=== PATIENT | male | born 1965 | race Caucasian/White ===

== ENCOUNTER 2019-01-20 16:11 | Inpatient (IN) | payer MEDICAID ==
[~2019-01-20] VITALS: Ht 165.1 cm; Wt 69.9 kg
[2019-01-20 16:14] VITALS: Ht 165.1 cm; Wt 69.9 kg
--- NOTE | 2019-01-20 16:20 | ERD ---
ER Documentation Chief Complaint Chief Complaint Altered mental status HPI 53-year-old male with unknown past medical history presents to the ED via rescue ambulance for evaluation of altered mental status. 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 Although falls possible patient was not seen working aboveground in the trees prior to being found. No reports of pesticide use. On arrival paramedics found the patient to be agitated, u ncooperative tachycardic and dyspneic. Blood sugar was greater than 100 mg/dL. No other history is available at this time. ROS All systems reviewed and are negative except as per history of present illness. Medications Home Meds Active Scripts Aspirin (Aspirin) 81 Mg Chew, 81 MG PO DAILY, #60 TAB Prov:MAJO LOPEZ 01/27/19 Metoprolol Tartrate* (Lopressor*) 25 Mg Tab, 50 MG PO BID, #60 TAB Prov:MAJO LOPEZ 01/27/19 Atorvastatin* (Atorvastatin*) 40 Mg Tablet, 40 MG PO HS, #60 TAB Prov:MAJO LOPEZ 01/27/19 Clopidogrel Bisulfate (Clopidogrel) 75 Mg Tablet, 75 MG PO DAILY, #60 TAB Prov:MAJO LOPEZ 01/27/19 Reported Medications [diclofenaco] No Conflict Check 01/21/19 [bromuro] No Conflict Check 01/21/19 [biojara] No Conflict Check 01/21/19 [nediclon] No Conflict Check 01/21/19 [paracetamol] No Conflict Check 01/21/19 [dolprofen] No Conflict Check 01/21/19 [derman] No Conflict Check 01/21/19 [treda] No Conflict Check 01/21/19 [miconazol] No Conflict Check 01/21/19 [assal] No Conflict Check 01/21/19 [loratadina] No Conflict Check 01/21/19 [ciprofloxacino] No Conflict Check 01/21/19 [glibenclamida] No Conflict Check 01/21/19 [enalapril] No Conflict Check 01/21/19 [omeprazol] No Conflict Check 01/21/19 [metformina] No Conflict Check 01/21/19 Allergies Allergies: Coded Allergies: No Known Allergy (Unverified , 01/25/19) PMhx/Soc Unknown. Unobtainable due to the patient's cognitive impairment. Smoking Status: Unknown if ever smoked FmHx Unknown. Unobtainable due to the patient's cognitive impairment Physical Exam Vitals Temp: 97.5. Pulse: 138. Respirations: 40. Blood pressure: 161/104. O2 saturation 98%. Physical Exam Const: No acute distress Head: Atraumatic Eyes: Normal Conjunctiva ENT: Normal External Ears, Nose and Mouth. Neck: Full range of motion. No meningismus. Resp: Clear to auscultation bilaterally Cardio: Regular rate and rhythm, no murmurs Abd: Soft, non tender, non distended. Normal bowel sounds Skin: No petechiae or rashes Back: No midline or flank tenderness Ext: No cyanosis, or edema Neur: Awake and alert Psych: Normal Mood and Affect Result Diagram: 01/27/1952301/27/19523 Results 24 hrs Laboratory Tests Test 01/20/19 16:17 01/20/19 16:19 01/20/19 16:38 01/20/19 16:56 Bedside Glucose 284 mg/dL White Blood 13.0 10^3/ul Count Red Blood Count 4.82 10^6/ul Hemoglobin 13.9 g/dl Hematocrit 40.8 % Mean Corpuscular 84.6 fl Volume Mean Corpuscular 28.8 pg Hemoglobin Mean Corpuscular 34.1 g/dl Hemoglobin Jewels nt Red Cell 12.7 % Distribution Width Platelet Count 322 10^3/UL Mean Platelet 11.5 fl Volume Immature 0.500 % Granulocytes % Neutrophils % 48.1 % Lymphocytes % 40.9 % Monocytes % 7.7 % Eosinophils % 2.3 % Basophils % 0.5 % Nucleated Red 0.0 /100WBC Blood Cells % Immature 0.060 10^3/ul Granulocytes # Neutrophils # 6.3 10^3/ul Lymphocytes # 5.3 10^3/ul Monocytes # 1.0 10^3/ul Eosinophils # 0.3 10^3/ul Basophils # 0.1 10^3/ul Nucleated Red 0.0 10^3/ul Blood Cells # Prothrombin Time 13.5 Sec Prothrombin Time 1.1 Ratio INR 1.02 International Normalized Ratio Activated 28.3 Sec Partial Thrombop last Time Sodium Level 143 mmol/L Potassium Level 3.6 mmol/L Chloride Level 106 mmol/L Carbon Dioxide 19 mmol/L Level Anion Gap 18 Blood Urea 26 mg/dl Nitrogen Creatinine 1.76 mg/dl Est Glomerular 41 mL/min Filtrat Rate mL/min Glucose Level 246 mg/dl Calcium Level 8.9 mg/dl Total Bilirubin 0.5 mg/dl Direct Bilirubin 0.00 mg/dl Indirect 0.5 mg/dl Bilirubin Aspartate Amino 181 IU/L Transf (AST/SGOT ) Alanine 127 IU/L Aminotransferase (ALT/SGPT) Alkaline 84 IU/L Phosphatase Troponin I < 0.012 ng/ml Total Protein 7.4 g/dl Albumin 4.5 g/dl Globulin 2.90 g/dl Albumin/Globulin 1.55 Ratio Free Thyroxine 2.41 ug/ml Index Thyroxine (T4) 6.6 ug/dl Triiodothyronine 36.5 % (T3) Uptake Ethyl Alcohol < 10.0 mg/dl Level POC Venous 3.4 mmol/L Lactate Urine Color YELLOW Urine Clarity SLIGHTLY CLOUDY Urine pH 5.0 Urine Specific 1.015 [place] Urine Ketones TRACE mg/dL Urine Nitrite NEGATIVE mg/dL Urine Bilirubin NEGATIVE mg/dL Urine NEGATIVE mg/dL Urobilinogen Urine Leukocyte NEGATIVE Dolores/ul Esterase Urine 3 /HPF Microscopic RBC Urine 3 /HPF Microscopic WBC Urine Bacteria FEW /HPF Urine Mucus FEW /HPF Urine Hemoglobin 1+ mg/dL Urine Glucose 3+ mg/dL Urine Total 2+ mg/dl Protein Test 01/20/19 16:57 01/20/19 17:21 01/20/19 18:34 Urine Opiates Negative Screen Urine Negative Barbiturates Urine Negative Amphetamines Screen Urine Negative Benzodiazepines Screen Urine Cocaine Negative Screen Urine Negative Cannabinoids Blood Gas Blood arterial Specimen Source Arterial Blood 01/20/2019 7:45: Date Drawn 16 PM Arterial Blood 7.304 pH (Temp corrected) Arterial Blood 41.6 mmhg pCO2 (Temp correct) Arterial Blood 540.2 mmHG pO2 (Temp corrected) Arterial Blood 20.2 mmol/L HCO3 Arterial Blood -5.8 mmol/L Base Excess Arterial Blood 99.3 mmHG Oxygen Saturatio n Tadeo Test ACCEPTAB Arterial Blood Right Radial Gas Puncture Site Arterial 0.3 % Blood Carboxyhem oglobin Arterial Blood 0.3 % Methemoglobin Blood Gas A-a O2 131.2 mmHg Differential Oxyhemoglobin 98.7 % Percent Blood Gas 37.0 C Temperature Blood Gas 20.0 Respiration Rate Blood Gas Actual 20 Respiration Rate Blood Gas VENT - AC Modality FiO2 100.0 % Blood Gas Tidal 500.0 mL Volume Blood Gas Low 5.0 cmH2O PEEP Setting Blood Gas [place] Notified Whom Blood Gas 01/20/2019 7:58: Notified Time 05 PM Lactic Acid 2.4 mmol/L Level Current Medications Medications Dose Sig/Humberto Start Time Status Last (Trade) Ordered Route PRN Stop Time Admin Dose Reason Admin Thiamine 100 mg ONCE ONCE 01/20/19 DC HCl IV 16:30 (Vitamin B1) 01/20/19 16:31 Lorazepam 2 mg ONCE ONCE 01/20/19 DC 01/20/19 (Ativan) IV 16:30 16:30 01/20/19 16:31 Lorazepam 2 mg ONCE ONCE 01/20/19 DC 01/20/19 (Ativan) IV 17:00 16:43 01/20/19 17:01 Cefepime HCl 50 ml @ ONCE STAT 01/20/19 DC 01/20/19 100 mls/hr IVPB 16:42 17:25 01/20/19 17:11 Vancomycin 250 ml @ ONCE ONCE 01/20/19 DC 01/20/19 HCl 125 mls/hr IVPB 17:00 17:47 01/20/19 18:59 Sodium 2,500 ml BOLUS OVER 2 01/20/19 DC 01/20/19 Chloride HOURS STAT 17:17 17:26 (NS) IV* 01/20/19 17:21 Vecuronium 8 mg ONCE ONCE 01/20/19 DC 01/20/19 [place] IV 17:30 17:34 (Norcuron) 01/20/19 17:31 Propofol 100 ml @ 0 TITRATE 01/20/19 DC mls/hr STAT IV 18:41 01/20/19 20:29 Propofol 100 ml @ ud STK-MED 01/20/19 DC ONCE .ROUTE 18:44 01/20/19 18:45 Propofol 100 ml @ 0 TITRATE 01/20/19 DC 01/20/19 mls/hr ONCE IV 19:00 18:50 01/20/19 19:01 Procedures/MDM DOCUMENTS REVIEWED: ED nurse, EMS report EKG: Time: 17:22. Sinus tachycardia. Ventricular rate 107. Normal MI and QRS. Nonspecific ST-T wave changes but no acute ST segment elevation or depression. No ectopy. My Interpretation IMAGING: Chest AP portable: Post intubation. Tip of the ET tube is in the right mainstem bronchus. Bilateral lung nodules/granulomas but no effusions or infiltrates. No pneumothorax. No mediastinal widening. My interpretation. Chest AP portable: Post repositioning of the ET tube. The tip is still in the right mainstem bronchus. No pneumothorax. No effusions or infiltrates. My interpretation. Chest AP portable: Post second repositioning of the ET tube. Tip is above the randall. No pneumothorax. No effusions or infiltrates. My interpretation. CT brain without contrast: No extra-axial fluid collections, mass, ischemia, hydrocephalus or shift. No abnormalities of the bony calvarium. My interpretation. CT of the cervical spine. No prevertebral soft tissue swelling. The vertebral heights are well-maintained. No fracture or subluxation. DJD. Straightening of the normal lordotic curve. PROCEDURES: Endotracheal Intubation by me: Pre assessment performed. See preceding note for details. Pre-oxygenation performed with 100% oxygen RSI: Performed w/o complication or hypoxic events. Medications as ord ered. Blade: #3 ET Tube: 7.5 cm Depth: 25 cm at the lip Intubation confirmed by colorimetric CO2, equal breath sounds, quiet over the stomach. Chest X-ray 1V Interpreted by me: As above. ET tube is 1.5 cm above the randall after the second repositioning. Normal soft tissue, No pneumothorax. MEDICAL DECISION MAKIN-year-old male with unknown past medical history presents to the ED via rescue ambulance for evaluation of altered mental status. CBC significant for leukocytosis but no anemia or thrombocytopenia. Chemistry reveals an elevated BUN and creatinine with a mild anion gap metabolic acidosis. LFTs significant for transaminitis but no hyperbilirubinemia. EKG significant for sinus tachycardia but no acute ischemic changes or dysrhythmia. Troponin is not elevated. Thyroid function tests are normal. EtOH level is 0. Urine drugs of abuse are unremarkable. Urinalysis is negative for infection or hematuria. CT of the brain is negative for hemorrhage, infarct, mass or hydrocephalus. CT of the cervical spine reveals DJD but no fracture or subluxation. Chest x-ray negative for pneumonia or congestive heart failure. Multiple criteria for systemic inflammatory response syndrome including tachycardia, tachypnea and leukocytosis. Adpon-np-giys lactate is elevated at 3.4 mmol/L. Although no source of infection is immediately identifiable normal saline 30 cc/kg fluid bolus is given and broad-spectrum antibiotics after cultures. Repeat lactate was 2.4 mmol/L. Patient extremely agitated with minimal response to multiple doses of intravenous benzodiazepines; required sedation and endotracheal intubation. Patient presents with acute encephalopathy of uncertain etiology. 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 No evidence of alcohol or illicit drug ingestion. No thyroid storm as thyroid function tests are normal. Mild hyperglycemia without evidence of DKA. No evidence of structural brain lesion. Multiple other etiologies are considered including but not limited to seizure with a prolonged postictal state, encephalitis, and occult cardiac dysrhythmia. LP considered but will be deferred to the admitting team. Admit to intensive care unit for further evaluation and management. PATIENT CARE TRANSITIONED: Time: 18:48, Dr. Archibald. Departure Diagnosis: Primary Impression: Acute encephalopathy Additional Impression: Systemic inflammatory response syndrome (SIRS) Condition: Critical AMADOU HERNANDEZ MD Jan 20, 2019 16:20
[2019-01-20] MEDS ORDERED: LORAZEPAM 2 MG INJ IV ONE ×2 (16:30→17:00)
[2019-01-20] MEDS ORDERED: THIAMINE 200 MG INJ IV ONE (16:30)
[2019-01-20] MEDS ORDERED: CEFEPIME 2GM/50 ML (PMX) 50 ML IVPB STA (16:42)
[2019-01-20] MEDS ORDERED: VANCOMYCIN 1 GM (PMX) 250 ML IVPB ONE (17:00)
[2019-01-20] MEDS ORDERED: SODIUM CHLORIDE 0.9% 1L BAG IV* STA (17:17)
[2019-01-20] MEDS ORDERED: VECURONIUM 10 MG VIAL IV ONE (17:30)
[2019-01-20] MEDS ORDERED: PROPOFOL 100 ML IV STA (18:41)
[2019-01-20] MEDS ORDERED: PROPOFOL 100 ML ONE (18:44)
[2019-01-20] MEDS ORDERED: PROPOFOL 100 ML IV ONE (19:00)
[2019-01-20] MEDS ORDERED: NACL 0.9% 3 ML SYG IV SCH (19:30)
--- NOTE | 2019-01-20 19:36 | HP ---
Date/Time of Note Date/Time of Note DATE: 01/20/19 TIME: 19:19 Assessment/Plan VTE Prophylaxis SCD applied (from Nsg): Yes Pharmacological prophylaxis: heparin Lines/Catheters IV Catheter Type (from Nrsg): Saline Lock Urinary Cath still in place: Yes Reason Cath still needed: urinary retention Assessment/Plan Hospital Course 53 yo male without known PMH who was brought in by EMS for acute encephelopathy that occured at work today. He was extremely agitated on arrival and required sedation leading to intubation and mechanical ventilation. It sounds like the patient was in usual state of health prior to acute decompensation at work today. This suggests perhaps a toxidrome, however drug screen is negative. Perhpas this was seizure activity however it did not respond to ativan in the ED. We will need to observe him and obtain further collateral if possible. - Continue mechanical ventilation per pulmonary - Monitor neurologic status - Neuro consult DMII - Seems diabetic by glucose level. Basal/bolus insulin MONIQUE vs CKD - Trend creatinine Transaminitis: - Imaging, hepatitis serologies Lactic acidosis: - Fluids, empiric abx To ICU Result Diagram: 01/20/19 1619 01/20/19 1619 Results 24hrs Laboratory Tests Test 01/20/19 16:17 01/20/19 16:19 01/20/19 16:38 01/20/19 16:56 Bedside Glucose 284 H White Blood Count 13.0 H Red Blood Count 4.82 Hemoglobin 13.9 L Hematocrit 40.8 L Mean Corpuscular 84.6 Volume Mean Corpuscular 28.8 L Hemoglobin Mean Corpuscular 34.1 Hemoglobin Concen t Red Cell 12.7 Distribution Width Platelet Count 322 Mean Platelet 11.5 H Volume Immature 0.500 H Granulocytes % Neutrophils % 48.1 Lymphocytes % 40.9 Monocytes % 7.7 Eosinophils % 2.3 Basophils % 0.5 Nucleated Red 0.0 Blood Cells % Immature 0.060 H Granulocytes # Neutrophils # 6.3 Lymphocytes # 5.3 H Monocytes # 1.0 H Eosinophils # 0.3 Basophils # 0.1 Nucleated Red 0.0 Blood Cells # Prothrombin Time 13.5 Prothrombin Time 1.1 Ratio INR International 1.02 Normalized Ratio Activated 28.3 Partial Thrombopl ast Time Sodium Level 143 Potassium Level 3.6 Chloride Level 106 Carbon Dioxide 19 L Level Anion Gap 18 H Blood Urea 26 H Nitrogen Creatinine 1.76 H Est Glomerular 41 L Filtrat Rate mL/min Glucose Level 246 H Calcium Level 8.9 Total Bilirubin 0.5 Direct Bilirubin 0.00 Indirect 0.5 Bilirubin Aspartate Amino 181 H Transf (AST/SGOT) Alanine 127 H Aminotransferase (ALT/SGPT) Alkaline 84 Phosphatase Troponin I < 0.012 Total Protein 7.4 Albumin 4.5 Globulin 2.90 Albumin/Globulin 1.55 Ratio Free Thyroxine 2.41 Index Thyroxine (T4) 6.6 Triiodothyronine 36.5 (T3) Uptake Ethyl Alcohol < 10.0 H Level POC Venous 3.4 *H Lactate Urine Color YELLOW Urine Clarity SLIGHTLY CLOUDY A Urine pH 5.0 Urine Specific 1.015 [place] Urine Ketones TRACE A Urine Nitrite NEGATIVE Urine Bilirubin NEGATIVE Urine NEGATIVE Urobilinogen Urine Leukocyte NEGATIVE Esterase Urine Microscopic 3 RBC Urine Microscopic 3 WBC Urine Bacteria FEW A Urine Mucus FEW A Urine Hemoglobin 1+ H Urine Glucose 3+ H Urine Total 2+ H Protein Test 01/20/19 16:57 01/20/19 18:34 Urine Opiates Negative Screen Urine Negative Barbiturates Urine Negative Amphetamines Screen Urine Negative Benzodiazepines Screen Urine Cocaine Negative Screen Urine Negative Cannabinoids Lactic Acid Level 2.4 *H HPI/ROS Admit Date/Time Admit Date/Time Hx of Present Illness 53 yo male with unknown medical history presents with acute encephelopathy Patient has been unable to provide a history. 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 Went to work today normally. Apparently then developed acute respiratory and mental decline. EMS reports he was encephelopathic, wildly waving arms. Also having difficulty breathing. Brought to ED where found to be extremely agitated. He required massive benzos to calm him down in order to get head imaging. He then required intubation but did not have problems with gas exchange Currently intubated on mechanical ventilation ROS Constitutional: no complaints, improved Eyes: no complaints ENT: no complaints Respiratory: no complaints Cardiovascular: no complaints Gastrointestinal: no complaints Genitourinary: no complaints Musculoskeletal: no complaints Skin: no complaints Neurologic: no complaints Endocrine: no complaints Lymphatic: no complaints Psychological: no complaints, nl mood/affect Immunologic: no complaints PMH/Family/Social Past Medical History Medical History: no pertinent history Coded Allergies: Unknown: Unable to obtain (Unverified , 01/20/19) Past Surgical History Past Surgical Hx: no surgical history Family History Significant Family History: no pertinent family hx Social History Alcohol Use: none Smoking Status: Never smoker Drug Use: cocaine Exam/Review of Systems Vital Signs Vitals Vital Signs Date Temp Pulse Resp B/P (MAP) Pulse Ox O2 O2 Flow FiO2 Time Delivery Rate 01/20/19 113 20 100 100 18:02 01/20/19 Simple 16:20 Mask 01/20/19 97.5 161/104 16:14 (123) Exam Exam Intubated, sedated Appears well kept No signs of trauma RRR CTAB anteriorly ETT Abdomen obese, soft nt Ext warm without edema TAMAR MCCLELLAN MD Jan 20, 2019 19:36
[2019-01-20] MEDS ORDERED: VANCOMYCIN 500 MG (PMX) 100 ML IVPB ONE (20:00)
[2019-01-20] MEDS ORDERED: VANCOMYCIN IV PER PHARMACY XX SCH (20:00)
[2019-01-20] MEDS: SOD CHLORIDE 0.9% 1,000 ML IV SCH (20:08)
[2019-01-20] MEDS ORDERED: THIAMINE 100 MG in SOD CHLORIDE 0.9% 100 ML IV SCH (20:30)
[2019-01-20] MEDS ORDERED: INSULIN ASPART [NOVOLOG] 3 ML PEN SC SCH (21:00)
[2019-01-20 21:22] VITALS: BP 132/85; PULSE 84; RESP 18
[2019-01-20 21:40] VITALS: RESP 20
[2019-01-20 22:00] VITALS: BP 119/77; PULSE 78; RESP 20
[2019-01-20] MEDS: PIPER-TAZO 3.375 GM IV (PMX) 100 ML IVPB SCH (22:06)
[2019-01-20 23:00] VITALS: BP 116/94; PULSE 85; RESP 13
[2019-01-20 23:20] VITALS: RESP 20
[2019-01-20] MEDS: INSULIN GLARGINE [LANTus] (100 UNITS/ML) SYG SC SCH (23:48)
[2019-01-21] VITALS (58 sets, daily range): BP systolic 95–127; BP diastolic 61–81; PULSE 57–77; RESP 15–38
[2019-01-21] MEDS: PROPOFOL 100 ML IV PRN ×4 (00:40→20:52)
[2019-01-21] MEDS: INSULIN ASPART [NOVOLOG] 3 ML PEN SC SCH ×6 (01:00→20:12)
[2019-01-21] MEDS: ACCU-CHEK XX SCH (01:09)
[2019-01-21] MEDS: PIPER-TAZO 3.375 GM IV (PMX) 100 ML IVPB SCH ×3 (05:06→22:05)
[2019-01-21] MEDS ORDERED: HEPARIN 1000 UNITS/ML 10 ML INJ IV PRN (08:00)
[2019-01-21] MEDS ORDERED: HEPARIN 1000 UNITS/ML 10 ML INJ IV ONE (08:00)
[2019-01-21] MEDS: HEPARIN 25000 UNITS/250 ML 250 ML IV SCH (08:18)
[2019-01-21] MEDS: SOD CHLORIDE 0.9% 1,000 ML IV SCH ×2 (08:23→20:17)
[2019-01-21] MEDS: FENTAnyl (DRIP) 1000 mcg/100mL 100 ML IV SCH (09:23)
[2019-01-21] MEDS ORDERED: ASPIRIN 325 MG TAB PO ONE (10:00)
--- NOTE | 2019-01-21 10:35 | CONSI ---
Assessment/Plan Assessment/Plan Assessment/Plan (Recall) 53 yo M c/ uncertain PHx, presents for evaluation of ams and agitation. He is now s/p intubation for mechanical ventilation, and on high dose chemical sedation...which limits his neurologic evaluation... He is noted to have a NV, which raises concern for a concomitant acute embolic TRANSITION LEAD process... CT Head was, though, unremarkable. The clinical presentation is not classic for encephalitis.. UDS was negative P: MRI brain when medically able Add HIV OK to defer CSF evaluation for now Wean sedation as soon as medically able Continued medical management and supportive care per primary Will follow Consultation Date/Type/Reason Admit Date/Time Type of Consult Neurology Reason for Consultation ams Requesting Provider: TAMAR MCCLELLAN MD Date/Time of Note DATE: 01/21/19 TIME: 10:22 Hx of Present Illness The patient is currently unable to contribute a Hx. It is elsewhere noted: 53 yo male with unknown medical history presents with acute encephelopathy Patient has been unable to provide a history. 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 Went to work today normally. Apparently then developed acute respiratory and mental decline. EMS reports he was encephelopathic, wildly waving arms. Also having difficulty breathing. Brought to ED where found to be extremely agitated. He required massive benzos to calm him down in order to get head imaging. He then required intubation but did not have problems with gas exchange Currently intubated on mechanical ventilation limited by critical illness Objective Exam Vitals Vital Signs Date Temp Pulse Resp B/P (MAP) Pulse Ox O2 O2 Flow FiO2 Time Delivery Rate 01/21/19 98.5 75 20 112/74 99 Mechanical 08:00 (87) Ventilator 01/21/19 40 05:15 01/20/19 18:30 Intake and Output 01/20/19 01/20/19 01/21/19 1515:00 23:00 07:00 IntakeIntake Total 584.6 ml 952.78 ml OutputOutput Total 950 ml 898 ml BalanceBalance -365.4 ml 54.78 ml Exam PE: Gen Appearance: No Apparent Distress HEENT: Intubated Cardiovascular: Regular rate Abdomen: Soft Extremities: Dry NE: The patient was comatose, while on chemical sedation. Cranial nerve examination was limited by mental status. Pupils were equal and reactive to light. There was no afferent pupillary defect. Funduscopic examination was limited. Face was grossly symmetric, w/ present corneal and cough reflexes. Tone was normal. Muscle bulk was normal. I did not see fasciculations. The patient withdrew to noxious stimulation x 4. Coordination and gait testing was limited by mental status. Arm and leg reflexes were within normal limits and symmetric. Belcher's sign was absent. Plantar responses were flexor. Results Result Diagram: 01/21/19 0820 01/21/19 0502 Results 24hrs Laboratory Tests Test 01/20/19 16:17 01/20/19 16:19 01/20/19 16:38 01/20/19 16:56 Bedside Glucose 284 H White Blood 13.0 H Count Red Blood Count 4.82 Hemoglobin 13.9 L Hematocrit 40.8 L Mean Corpuscular 84.6 Volume Mean Corpuscular 28.8 L Hemoglobin Mean Corpuscular 34.1 Hemoglobin Jewels nt Red Cell 12.7 Distribution Width Platelet Count 322 Mean Platelet 11.5 H Volume Immature 0.500 H Granulocytes % Neutrophils % 48.1 Lymphocytes % 40.9 Monocytes % 7.7 Eosinophils % 2.3 Basophils % 0.5 Nucleated Red 0.0 Blood Cells % Immature 0.060 H Granulocytes # Neutrophils # 6.3 Lymphocytes # 5.3 H Monocytes # 1.0 H Eosinophils # 0.3 Basophils # 0.1 Nucleated Red 0.0 Blood Cells # Prothrombin Time 13.5 Prothrombin Time 1.1 Ratio INR 1.02 International Normalized Ratio Activated 28.3 Partial Thrombop last Time Sodium Level 143 Potassium Level 3.6 Chloride Level 106 Carbon Dioxide 19 L Level Anion Gap 18 H Blood Urea 26 H Nitrogen Creatinine 1.76 H Est Glomerular 41 L Filtrat Rate mL/min Glucose Level 246 H Calcium Level 8.9 Total Bilirubin 0.5 Direct Bilirubin 0.00 Indirect 0.5 Bilirubin Aspartate Amino 181 H Transf (AST/SGOT ) Alanine 127 H Aminotransferase (ALT/SGPT) Alkaline 84 Phosphatase Troponin I < 0.012 Total Protein 7.4 Albumin 4.5 Globulin 2.90 Albumin/Globulin 1.55 Ratio Free Thyroxine 2.41 Index Thyroxine (T4) 6.6 Triiodothyronine 36.5 (T3) Uptake Ethyl Alcohol < 10.0 H Level POC Venous 3.4 *H Lactate Urine Color YELLOW Urine Clarity SLIGHTLY CLOUDY A Urine pH 5.0 Urine Specific 1.015 [place] Urine Ketones TRACE A Urine Nitrite NEGATIVE Urine Bilirubin NEGATIVE Urine NEGATIVE Urobilinogen Urine Leukocyte NEGATIVE Esterase Urine 3 Microscopic RBC Urine 3 Microscopic WBC Urine Bacteria FEW A Urine Mucus FEW A Urine Hemoglobin 1+ H Urine Glucose 3+ H Urine Total 2+ H Protein Test 01/20/19 16:57 01/20/19 17:21 01/20/19 18:34 01/20/19 20:30 Urine Opiates Negative Screen Urine Negative Barbiturates Urine Negative Amphetamines Screen Urine Negative Benzodiazepines Screen Urine Cocaine Negative Screen Urine Negative Cannabinoids Blood Gas Blood arterial Specimen Source Arterial Blood 01/20/2019 7:45: Date Drawn 16 PM Arterial Blood 7.304 L pH (Temp corrected) Arterial Blood 41.6 pCO2 (Temp correct) Arterial Blood 540.2 H pO2 (Temp corrected) Arterial Blood 20.2 L HCO3 Arterial Blood -5.8 L Base Excess Arterial Blood 99.3 H Oxygen Saturatio n Tadeo Test ACCEPTAB Arterial Blood Right Radial Gas Puncture Site Arterial 0.3 Blood Carboxyhem oglobin Arterial Blood 0.3 Methemoglobin Blood Gas A-a O2 131.2 H Differential Oxyhemoglobin 98.7 Percent Blood Gas 37.0 Temperature Blood Gas 20.0 Respiration Rate Blood Gas Actual 20 Respiration Rate Blood Gas VENT - AC Modality FiO2 100.0 Blood Gas Tidal 500.0 Volume Blood Gas Low 5.0 PEEP Setting Blood Gas HI Notified Whom Blood Gas 01/20/2019 7:58: Notified Time 05 PM Lactic Acid 2.4 *H 2.2 *H Level Test 01/20/19 21:40 01/20/19 23:45 01/21/19 01:08 01/21/19 05:02 Bedside Glucose 205 149 112 White Blood 11.0 H Count Red Blood Count 4.02 L Hemoglobin 11.7 L Hematocrit 34.9 L Mean Corpuscular 86.8 Volume Mean Corpuscular 29.1 Hemoglobin Mean Corpuscular 33.5 Hemoglobin Jewels nt Red Cell 12.7 Distribution Width Platelet Count 228 # Mean Platelet 11.5 H Volume Immature 0.400 Granulocytes % Neutrophils % 76.4 Lymphocytes % 13.0 L Monocytes % 9.1 Eosinophils % 0.8 Basophils % 0.3 Nucleated Red 0.0 Blood Cells % Immature 0.040 H Granulocytes # Neutrophils # 8.4 H Lymphocytes # 1.4 Monocytes # 1.0 H Eosinophils # 0.1 Basophils # 0.0 Nucleated Red 0.0 Blood Cells # Sodium Level 141 Potassium Level 4.4 Chloride Level 111 H Carbon Dioxide 23 Level Anion Gap 7 # Blood Urea 18 Nitrogen Creatinine 0.73 # Est Glomerular > 60 Filtrat Rate mL/min Glucose Level 75 # Hemoglobin A1c 6.0 H Calcium Level 7.9 L Total Bilirubin 0.7 Direct Bilirubin 0.00 Indirect 0.7 Bilirubin Aspartate Amino 128 H Transf (AST/SGOT ) Alanine 98 H Aminotransferase (ALT/SGPT) Alkaline 54 Phosphatase Total Protein 5.9 L Albumin 3.3 Globulin 2.60 Albumin/Globulin 1.26 Ratio Test 01/21/19 05:05 01/21/19 06:00 01/21/19 06:30 01/21/19 08:20 Bedside Glucose 81 Blood Gas Blood arterial Specimen Source Arterial Blood 01/21/2019 5:55: Date Drawn 16 AM Arterial Blood 7.442 pH (Temp corrected) Arterial Blood 32.7 L pCO2 (Temp correct) Arterial Blood 139.1 H pO2 (Temp corrected) Arterial Blood 21.8 L HCO3 Arterial Blood -1.6 Base Excess Arterial Blood 98.3 H Oxygen Saturatio n Tadeo Test ACCEPTAB Arterial Blood Right Radial Gas Puncture Site Arterial 0.3 Blood Carboxyhem oglobin Arterial Blood 0.2 Methemoglobin Blood Gas A-a O2 108.5 H Differential Oxyhemoglobin 97.8 Percent Blood Gas 37.0 Temperature Blood Gas 20.0 Respiration Rate Blood Gas Actual 20 Respiration Rate Blood Gas VENT - AC Modality FiO2 40.0 Blood Gas Tidal 500.0 Volume Blood Gas Mean 10 Airway Pressure Blood Gas Low 5.0 PEEP Setting Blood Gas 26.0 Inspiratory Pressure Blood Gas NATALIA BAXTER Notified Whom Blood Gas 01/21/2019 6:05: Notified Time 56 AM Creatine Kinase 701 H Creatine Kinase 2.8 Index Creatinine 19.90 H Kinase MB (Mass) Troponin I 9.000 *H White Blood 9.9 Count Red Blood Count 3.97 L Hemoglobin 11.6 L Hematocrit 33.5 L Mean Corpuscular 84.4 Volume Mean Corpuscular 29.2 Hemoglobin Mean Corpuscular 34.6 Hemoglobin Jewels nt Red Cell 12.8 Distribution Width Platelet Count 233 Mean Platelet 11.4 H Volume Immature 0.400 Granulocytes % Neutrophils % 74.5 Lymphocytes % 15.0 Monocytes % 8.6 Eosinophils % 1.3 Basophils % 0.2 Nucleated Red 0.0 Blood Cells % Immature 0.040 H Granulocytes # Neutrophils # 7.4 Lymphocytes # 1.5 Monocytes # 0.9 Eosinophils # 0.1 Basophils # 0.0 Nucleated Red 0.0 Blood Cells # Prothrombin Time 14.4 Prothrombin Time 1.1 Ratio INR 1.11 International Normalized Ratio Activated 32.1 Partial Thrombop last Time Test 01/21/19 08:34 Bedside Glucose 81 Past Medical History Medical History: no pertinent history Home Meds Unable to Obtain Active Prescriptions or Reported Meds Medications Current Medications Sodium Chloride 1,000 ml @ 80 mls/hr [id number] IV Last administered on 01/21/19at 08:23; Admin Dose 80 MLS/HR; Start 01/20/19 at 19:29 IV Flush (NS 3 ml) 3 ml PER PROTOCOL IV ; Start 01/20/19 at 19:30 Diagnostic Test (Pha) (Accu-Chek) 1 02 XX ; Start 01/21/19 at 02:00 Insulin Glargine (Lantus) 12 units DAILY@2000 SC Last administered on 01/20/19at 23:48; Admin Dose 12 UNITS; Start 01/20/19 at 20:00 Vancomycin HCl (Vanco Iv Per Pharmacy) VANCOMYCIN PER PHARMACY PER PROTOCOL XX ; Start 01/20/19 at 20:00 Piperacillin Sod/ Tazobactam Sod 100 ml @ 200 mls/hr Q8 IVPB Last administered on 01/21/19at 05:06; Admin Dose 200 MLS/HR; Start 01/20/19 at 22:00 Propofol 100 ml @ 2.46 mls/hr Q12H PRN IV SEDATION Last administered on 01/21/19at 08:23; Admin Dose 19.68 MLS/HR; Start 01/20/19 at 22:00 Insulin Aspart (Novolog Insulin Pen) NOVOLOG *MODERATE* ALGORI... Q4 SC ; Start 01/21/19 at 01:00 Heparin Sodium (Porcine) (Heparin (1000 Units/ml)) 4,000 unit PER PROTOCOL PRN IV aPTT<47; Start 01/21/19 at 08:00 Heparin Sodium (Porcine) 250 ml @ 8.4 mls/hr PER PROTOCOL IV Last administered on 01/21/19at 08:18; Admin Dose 8.4 MLS/HR; Start 01/21/19 at 08:00 Fentanyl 100 ml @ 2.5 mls/hr TITRATE IV Last administered on 01/21/19at 09:23; Admin Dose 2.5 MLS/HR; Start 01/21/19 at 09:30 Aspirin (Aspirin) 81 mg DAILY PO ; Start 01/22/19 at 09:00 Allergies: Coded Allergies: Unknown: Unable to obtain (Unverified , 01/20/19) Past Surgical History Past Surgical Hx: no surgical history Social History Alcohol Use: none Smoking Status: Unknown if ever smoked Drug Use: cocaine BENNY HALL Jan 21, 2019 10:34
[2019-01-21] MEDS ORDERED: [UNRECOGNIZED DRUG - OTHER] (10:47)
[2019-01-21] MEDS ORDERED: LORATADINE (10:47)
[2019-01-21] MEDS ORDERED: enalapril (10:47)
[2019-01-21] MEDS ORDERED: [UNRECOGNIZED DRUG - OTHER] (10:47)
[2019-01-21] MEDS ORDERED: MICONAZOLE (10:47)
[2019-01-21] MEDS ORDERED: OMEPRAZOL (10:47)
[2019-01-21] MEDS ORDERED: [UNRECOGNIZED DRUG - OTHER] (10:47)
[2019-01-21] MEDS ORDERED: METFORMINA (10:47)
[2019-01-21] MEDS ORDERED: [UNRECOGNIZED DRUG - OTHER] (10:47)
[2019-01-21] MEDS ORDERED: [UNRECOGNIZED DRUG - OTHER] (10:47)
[2019-01-21] MEDS ORDERED: [UNRECOGNIZED DRUG - OTHER] (10:47)
[2019-01-21] MEDS ORDERED: [UNRECOGNIZED DRUG - OTHER] (10:47)
[2019-01-21] MEDS ORDERED: CIPROFLOXACIN (10:47)
[2019-01-21] MEDS ORDERED: [UNRECOGNIZED DRUG - OTHER] (10:47)
[2019-01-21] MEDS ORDERED: paracetamol (10:47)
[2019-01-21] MEDS ORDERED: glibenclamida (10:47)
--- NOTE | 2019-01-21 11:51 | RADRPT ---
Echocardiogram Report Patient Name: WHITNEY MAYBERRYPatient ID: [id number] : 1965 (54y )Study Date: 01/21/2019 9:54:12 AM Gender: MAccession #: [id number] Tech: Fawad Page [facility] Location: [address] Ref.Physician: TAMAR MCCLELLAN Height(Cm): BSA: Weight(Kg): Quality: AdequateOrder Physician: TAMAR MCCLELLAN Account #: Procedures: Echocardiographic Report: Transthoracic echocardiogram with complete 2D, M-Mode, and doppler examination. Indications: NSTEMI. Measurements: 2D/M Mode Doppler Measurement Value Normal Range Measurement Value Normal Range LVIDd 2D 4.5 [ 4.2 - 5.8 ] cm AV Peak [place] 1.2 [ 100.0 - 170.0 ] cm/sec LVIDs 2D 3.2 [ 2.5 - 4.0 ] cm AV Peak PG 6.0 [ 2.0 - 9.0 ] mmHg LVPWd 2D 0.9 [ 0.6 - 1.0 ] cm LVOT Peak [place] 1.0 [ 70.0 - 110.0 ] cm/sec IVSd 2D 1.1 [ 0.6 - 1.0 ] cm LVOT Peak PG 4.0 [ 2.0 - 6.0 ] mmHg AoR Diam 2D 3.2 [ 2.6 - 3.4 ] cm MV E Peak [place] 0.8 [ 60.0 - 130.0 ] cm/sec EDV 2D 92.9 [ 62.0 - 150.0 ] ml MV A Peak [place] 1.0 [ 100.0 - 120.0 ] cm/sec ESV 2D 41.0 [ 21.0 - 61.0 ] ml MV E/A 0.8 [ 0.8 - 1.5 ] ratio EF 2D 55.9 [ 52.0 - 72.0 ] percent MV Decel Time 208 [ 104 - 258 ] msec LA Dimen 2D 3.1 [ 3.0 - 4.0 ] cm Lat E` [place] 0.1 [ 10.0 - 15.0 ] cm/sec Lateral E/E` 9.5 [ 1.0 - 2.0 ] ratio Med E` [place] 0.1 cm/sec MV E/A 0.8 [ 0.8 - 1.5 ] ratio TR Peak [place] 2.1 [ 100.0 - 280.0 ] cm/sec TR Peak PG 17.0 mmHg RVSP 25.0 [ 10.0 - 36.0 ] mmHg Findings: Left Ventricle: Lower limits of normal systolic function. Normal left ventricular cavity size. Normal left ventricular wall thickness. Ejection fraction is visually estimated at 50 %. Tissue Doppler/Mitral Doppler indices are consistent with impaired relaxation (Stage I diastolic dysfunction). Akinesis of the basal to mid inferior wall vs poor endocadial visualization. Right Ventricle: Normal right ventricular size. Normal right ventricular systolic function. Left Atrium: The left atrium is normal in size. Right Atrium: The right atrium is normal in size. Mitral Valve: Mild mitral annular calcification. Trace mitral regurgitation. Aortic Valve: Normal appearance of the aortic valve. No significant aortic stenosis or insufficiency. Tricuspid Valve: Normal appearance of the tricuspid valve. The estimated Peak RVSP is 25 mmHg. There is trace tricuspid regurgitation. Pericardium: Normal pericardium with no significant pericardial effusion. Aorta: Normal aortic root. IVC: Inferior vena cava without respiratory collapse, however, patient on ventilator. Conclusions: Lower limits of normal systolic function. Normal left ventricular cavity size. Normal left ventricular wall thickness. Ejection fraction is visually estimated at 50 %. Tissue Doppler/Mitral Doppler indices are consistent with impaired relaxation (Stage I diastolic dysfunction). Akinesis of the basal to mid inferior wall vs poor endocadial visualization. No significant valvular stenosis or regurgitation seen. The estimated Peak RVSP is 25 mmHg. Inferior vena cava without respiratory collapse, however, patient on ventilator. Electronically Signed By: Lenny Giordano 2019-01-21 11:50:27 PDT
--- NOTE | 2019-01-21 12:57 | CONS ---
Assessment/Plan Assessment/Plan Hospital Course (Demo Recall) NSTEMI: So far trop increased to 11. EKG completely normal and no q waves. Echo with EF 50% and basal inferior wall abnormality vs artifact. I do not think this represents true ACS and may still just be Type II IA due to yet unclear link to his presenting delirium. If he had pesticide toxicity/anticholinergic he could have had coronary vasospasm as well. 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 CT head normal and seen by neuro Acute respiratory failure: intubated on admission for airway protection Acute renal failure: now resolved after IVF Transaminitis: mild and improving -repeat head CT now that pt is on heparin -continue heparin if CT is ok -trend trops -continue ASA -start lipitor if LFTs remain stable -start metoprolol 25mg BID Consultation Date/Type/Reason Admit Date/Time Date of Consultation: Jan 21, 2019 Type of Consult Cardiology Reason for Consultation NSTEMI Requesting Provider: TAMAR MCCLELLAN MD Date/Time of Note DATE: 01/21/19 TIME: 12:42 Hx of Present Illness 53 yo M with no known medical history 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 He was attempted to be sedated and eventually was intubated. Initially he was tachycardic and hypertensive. He was found to have renal failure and transaminitis. CT head was unremarkable. Serial trops revealed trops up to 11 so far. EKG has been normal. He remains hemodynamically stable and sedated on the vent. unable to obtain Past Medical History none known Home Meds Reported Medications [diclofenaco] No Conflict Check 01/21/19 [bromuro] No Conflict Check 01/21/19 [biojara] No Conflict Check 01/21/19 [nediclon] No Conflict Check 01/21/19 [paracetamol] No Conflict Check 01/21/19 [dolprofen] No Conflict Check 01/21/19 [derman] No Conflict Check 01/21/19 [treda] No Conflict Check 01/21/19 [miconazol] No Conflict Check 01/21/19 [assal] No Conflict Check 01/21/19 [loratadina] No Conflict Check 01/21/19 [ciprofloxacino] No Conflict Check 01/21/19 [glibenclamida] No Conflict Check 01/21/19 [enalapril] No Conflict Check 01/21/19 [omeprazol] No Conflict Check 01/21/19 [metformina] No Conflict Check 01/21/19 Medications Current Medications Sodium Chloride 1,000 ml @ 80 mls/hr [id number] IV Last administered on 01/21/19 08:23; Admin Dose 80 MLS/HR; Start 01/20/19 at 19:29 IV Flush (NS 3 ml) 3 ml PER PROTOCOL IV ; Start 01/20/19 at 19:30 Diagnostic Test (Pha) (Accu-Chek) 1 02 XX ; Start 01/21/19 at 02:00 Insulin Glargine (Lantus) 12 units DAILY@2000 SC Last administered on 01/20/19at 23:48; Admin Dose 12 UNITS; Start 01/20/19 at 20:00 Vancomycin HCl (Vanco Iv Per Pharmacy) VANCOMYCIN PER PHARMACY PER PROTOCOL XX ; Start 01/20/19 at 20:00 Piperacillin Sod/ Tazobactam Sod 100 ml @ 200 mls/hr Q8 IVPB Last administered on 01/21/19at 05:06; Admin Dose 200 MLS/HR; Start 01/20/19 at 22:00 Propofol 100 ml @ 2.46 mls/hr Q12H PRN IV SEDATION Last administered on 01/21/19 08:23; Admin Dose 19.68 MLS/HR; Start 01/20/19 at 22:00 Insulin Aspart (Novolog Insulin Pen) NOVOLOG *MODERATE* ALGORI... Q4 SC ; Start 01/21/19 at 01:00 Heparin Sodium (Porcine) (Heparin (1000 Units/ml)) 4,000 unit PER PROTOCOL PRN IV aPTT<47; Start 01/21/19 at 08:00 Heparin Sodium (Porcine) 250 ml @ 8.4 mls/hr PER PROTOCOL IV Last administered on 01/21/19at 08:18; Admin Dose 8.4 MLS/HR; Start 01/21/19 at 08:00 Fentanyl 100 ml @ 2.5 mls/hr TITRATE IV Last administered on 01/21/19at 09:23; Admin Dose 2.5 MLS/HR; Start 01/21/19 at 09:30 Aspirin (Aspirin) 81 mg DAILY PO ; Start 01/22/19 at 09:00 Acyclovir 500 mg/ Sodium Chloride 100 ml @ 100 mls/hr Q8 IVPB ; Start 01/21/19 at 13:00 Vancomycin HCl 250 ml @ 125 mls/hr Q12H IVPB ; Start 01/21/19 at 13:00 Allergies: Coded Allergies: Unknown: Unable to obtain (Unverified , 01/20/19) Past Surgical History Past Surgical Hx: no surgical history Social History Alcohol Use: none Smoking Status: Unknown if ever smoked Drug Use: cocaine Exam/Review of Systems Vital Signs Vitals Vital Signs Date Temp Pulse Resp B/P (MAP) Pulse Ox O2 O2 Flow FiO2 Time Delivery Rate 01/21/19 68 20 100 30 11:00 01/21/19 98.5 112/74 Mechanical 08:00 (87) Ventilator 01/20/19 18:30 Intake and Output 01/20/19 01/20/19 01/21/19 1515:00 23:00 07:00 IntakeIntake Total 584.6 ml 952.78 ml OutputOutput Total 950 ml 898 ml BalanceBalance -365.4 ml 54.78 ml Exam Constitutional: No alert, No oriented Eyes: other (pinpoint pupils) ENMT: intubated Neck: supple; No jvd Respiratory: diminished breath sounds; No clear to auscultation Cardiovascular: regular rate and rhythm; No edema, No systolic murmur Gastrointestinal: soft, non-tender; No distended Musculoskeletal: nl extremities to inspection Neurological: No nl mental status, No nl speech Additional Comments EKG: sinus, no ST changes or q waves Labs Result Diagram: 01/21/19 0820 01/21/19 0502 Results 24hrs Laboratory Tests Test 01/20/19 16:17 01/20/19 16:19 01/20/19 16:38 01/20/19 16:56 Bedside Glucose 284 H White Blood 13.0 H Count Red Blood Count 4.82 Hemoglobin 13.9 L Hematocrit 40.8 L Mean Corpuscular 84.6 Volume Mean Corpuscular 28.8 L Hemoglobin Mean Corpuscular 34.1 Hemoglobin Jewels nt Red Cell 12.7 Distribution Width Platelet Count 322 Mean Platelet 11.5 H Volume Immature 0.500 H Granulocytes % Neutrophils % 48.1 Lymphocytes % 40.9 Monocytes % 7.7 Eosinophils % 2.3 Basophils % 0.5 Nucleated Red 0.0 Blood Cells % Immature 0.060 H Granulocytes # Neutrophils # 6.3 Lymphocytes # 5.3 H Monocytes # 1.0 H Eosinophils # 0.3 Basophils # 0.1 Nucleated Red 0.0 Blood Cells # Prothrombin Time 13.5 Prothrombin Time 1.1 Ratio INR 1.02 International Normalized Ratio Activated 28.3 Partial Thrombop last Time Sodium Level 143 Potassium Level 3.6 Chloride Level 106 Carbon Dioxide 19 L Level Anion Gap 18 H Blood Urea 26 H Nitrogen Creatinine 1.76 H Est Glomerular 41 L Filtrat Rate mL/min Glucose Level 246 H Calcium Level 8.9 Total Bilirubin 0.5 Direct Bilirubin 0.00 Indirect 0.5 Bilirubin Aspartate Amino 181 H Transf (AST/SGOT ) Alanine 127 H Aminotransferase (ALT/SGPT) Alkaline 84 Phosphatase Troponin I < 0.012 Total Protein 7.4 Albumin 4.5 Globulin 2.90 Albumin/Globulin 1.55 Ratio Free Thyroxine 2.41 Index Thyroxine (T4) 6.6 Triiodothyronine 36.5 (T3) Uptake Ethyl Alcohol < 10.0 H Level POC Venous 3.4 *H Lactate Urine Color YELLOW Urine Clarity SLIGHTLY CLOUDY A Urine pH 5.0 Urine Specific 1.015 Bowie Urine Ketones TRACE A Urine Nitrite NEGATIVE Urine Bilirubin NEGATIVE Urine NEGATIVE Urobilinogen Urine Leukocyte NEGATIVE Esterase Urine 3 Microscopic RBC Urine 3 Microscopic WBC Urine Bacteria FEW A Urine Mucus FEW A Urine Hemoglobin 1+ H Urine Glucose 3+ H Urine Total 2+ H Protein Test 01/20/19 16:57 01/20/19 17:21 01/20/19 18:34 01/20/19 20:30 Urine Opiates Negative Screen Urine Negative Barbiturates Urine Negative Amphetamines Screen Urine Negative Benzodiazepines Screen Urine Cocaine Negative Screen Urine Negative Cannabinoids Blood Gas Blood arterial Specimen Source Arterial Blood 01/20/2019 7:45: Date Drawn 16 PM Arterial Blood 7.304 L pH (Temp corrected) Arterial Blood 41.6 pCO2 (Temp correct) Arterial Blood 540.2 H pO2 (Temp corrected) Arterial Blood 20.2 L HCO3 Arterial Blood -5.8 L Base Excess Arterial Blood 99.3 H Oxygen Saturatio n Tadeo Test ACCEPTAB Arterial Blood Right Radial Gas Puncture Site Arterial 0.3 Blood Carboxyhem oglobin Arterial Blood 0.3 Methemoglobin Blood Gas A-a O2 131.2 H Differential Oxyhemoglobin 98.7 Percent Blood Gas 37.0 Temperature Blood Gas 20.0 Respiration Rate Blood Gas Actual 20 Respiration Rate Blood Gas VENT - AC Modality FiO2 100.0 Blood Gas Tidal 500.0 Volume Blood Gas Low 5.0 PEEP Setting Blood Gas [place] Notified Whom Blood Gas 01/20/2019 7:58: Notified Time 05 PM Lactic Acid 2.4 *H 2.2 *H Level Test 01/20/19 21:40 01/20/19 23:45 01/21/19 01:08 01/21/19 05:02 Bedside Glucose 205 149 112 White Blood 11.0 H Count Red Blood Count 4.02 L Hemoglobin 11.7 L Hematocrit 34.9 L Mean Corpuscular 86.8 Volume Mean Corpuscular 29.1 Hemoglobin Mean Corpuscular 33.5 Hemoglobin Jewels nt Red Cell 12.7 Distribution Width Platelet Count 228 # Mean Platelet 11.5 H Volume Immature 0.400 Granulocytes % Neutrophils % 76.4 Lymphocytes % 13.0 L Monocytes % 9.1 Eosinophils % 0.8 Basophils % 0.3 Nucleated Red 0.0 Blood Cells % Immature 0.040 H Granulocytes # Neutrophils # 8.4 H Lymphocytes # 1.4 Monocytes # 1.0 H Eosinophils # 0.1 Basophils # 0.0 Nucleated Red 0.0 Blood Cells # Sodium Level 141 Potassium Level 4.4 Chloride Level 111 H Carbon Dioxide 23 Level Anion Gap 7 # Blood Urea 18 Nitrogen Creatinine 0.73 # Est Glomerular > 60 Filtrat Rate mL/min Glucose Level 75 # Hemoglobin A1c 6.0 H Calcium Level 7.9 L Total Bilirubin 0.7 Direct Bilirubin 0.00 Indirect 0.7 Bilirubin Aspartate Amino 128 H Transf (AST/SGOT ) Alanine 98 H Aminotransferase (ALT/SGPT) Alkaline 54 Phosphatase Total Protein 5.9 L Albumin 3.3 Globulin 2.60 Albumin/Globulin 1.26 Ratio Test 01/21/19 05:05 01/21/19 06:00 01/21/19 06:30 01/21/19 08:20 Bedside Glucose 81 Blood Gas Blood arterial Specimen Source Arterial Blood 01/21/2019 5:55: Date Drawn 16 AM Arterial Blood 7.442 pH (Temp corrected) Arterial Blood 32.7 L pCO2 (Temp correct) Arterial Blood 139.1 H pO2 (Temp corrected) Arterial Blood 21.8 L HCO3 Arterial Blood -1.6 Base Excess Arterial Blood 98.3 H Oxygen Saturatio n Tadeo Test ACCEPTAB Arterial Blood Right Radial Gas Puncture Site Arterial 0.3 Blood Carboxyhem oglobin Arterial Blood 0.2 Methemoglobin Blood Gas A-a O2 108.5 H Differential Oxyhemoglobin 97.8 Percent Blood Gas 37.0 Temperature Blood Gas 20.0 Respiration Rate Blood Gas Actual 20 Respiration Rate Blood Gas VENT - AC Modality FiO2 40.0 Blood Gas Tidal 500.0 Volume Blood Gas Mean 10 Airway Pressure Blood Gas Low 5.0 PEEP Setting Blood Gas 26.0 Inspiratory Pressure Blood Gas [employer] Notified Whom Blood Gas 01/21/2019 6:05: Notified Time 56 AM Creatine Kinase 701 H Creatine Kinase 2.8 Index Creatinine 19.90 H Kinase MB (Mass) Troponin I 9.000 *H White Blood 9.9 Count Red Blood Count 3.97 L Hemoglobin 11.6 L Hematocrit 33.5 L Mean Corpuscular 84.4 Volume Mean Corpuscular 29.2 Hemoglobin Mean Corpuscular 34.6 Hemoglobin Jewels nt Red Cell 12.8 Distribution Width Platelet Count 233 Mean Platelet 11.4 H Volume Immature 0.400 Granulocytes % Neutrophils % 74.5 Lymphocytes % 15.0 Monocytes % 8.6 Eosinophils % 1.3 Basophils % 0.2 Nucleated Red 0.0 Blood Cells % Immature 0.040 H Granulocytes # Neutrophils # 7.4 Lymphocytes # 1.5 Monocytes # 0.9 Eosinophils # 0.1 Basophils # 0.0 Nucleated Red 0.0 Blood Cells # Prothrombin Time 14.4 Prothrombin Time 1.1 Ratio INR 1.11 International Normalized Ratio Activated 32.1 Partial Thrombop last Time Test 01/21/19 08:34 01/21/19 10:06 Bedside Glucose 81 Creatine Kinase 676 H Creatine Kinase 3.0 Index Creatinine 20.10 H Kinase MB (Mass) Troponin I 11.400 *H Medications Medications Current Medications Sodium Chloride 1,000 ml @ 80 mls/hr [id number] IV Last administered on 01/21/19at 08:23; Admin Dose 80 MLS/HR; Start 01/20/19 at 19:29 IV Flush (NS 3 ml) 3 ml PER PROTOCOL IV ; Start 01/20/19 at 19:30 Diagnostic Test (Pha) (Accu-Chek) 1 ea 02 XX ; Start 01/21/19 at 02:00 Insulin Glargine (Lantus) 12 units DAILY@2000 SC Last administered on 01/20/19at 23:48; Admin Dose 12 UNITS; Start 01/20/19 at 20:00 Vancomycin HCl (Vanco Iv Per Pharmacy) VANCOMYCIN PER PHARMACY PER PROTOCOL XX ; Start 01/20/19 at 20:00 Piperacillin Sod/ Tazobactam Sod 100 ml @ 200 mls/hr Q8 IVPB Last administered on 01/21/19at 05:06; Admin Dose 200 MLS/HR; Start 01/20/19 at 22:00 Propofol 100 ml @ 2.46 mls/hr Q12H PRN IV SEDATION Last administered on 01/21/19at 08:23; Admin Dose 19.68 MLS/HR; Start 01/20/19 at 22:00 Insulin Aspart (Novolog Insulin Pen) NOVOLOG *MODERATE* ALGORI... Q4 SC ; Start 01/21/19 at 01:00 Heparin Sodium (Porcine) (Heparin (1000 Units/ml)) 4,000 unit PER PROTOCOL PRN IV aPTT<47; Start 01/21/19 at 08:00 Heparin Sodium (Porcine) 250 ml @ 8.4 mls/hr PER PROTOCOL IV Last administered on 01/21/19at 08:18; Admin Dose 8.4 MLS/HR; Start 01/21/19 at 08:00 Fentanyl 100 ml @ 2.5 mls/hr TITRATE IV Last administered on 01/21/19at 09:23; Admin Dose 2.5 MLS/HR; Start 01/21/19 at 09:30 Aspirin (Aspirin) 81 mg DAILY PO ; Start 01/22/19 at 09:00 Acyclovir 500 mg/ Sodium Chloride 100 ml @ 100 mls/hr Q8 IVPB ; Start 01/21/19 at 13:00 Vancomycin HCl 250 ml @ 125 mls/hr Q12H IVPB ; Start 01/21/19 at 13:00 LUANNE BHAKTA Jan 21, 2019 12:56
--- NOTE | 2019-01-21 13:38 | CONS ---
DATE OF ADMISSION: 01/20/2019 DATE OF CONSULTATION: 01/21/2019 TYPE OF CONSULTATION: Pulmonary. REASON FOR CONSULTATION: Altered mental status. Thank you, Dr. Archibald, for this consultation. HISTORY OF PRESENT ILLNESS: This is a 53-year-old gentleman who came in yesterday with acute encepha litis altered, agitated, subsequently requiring emergent intubation and mechanical ventilation. Init ial drug screen was negative. Few further details are available. PAST MEDICAL HISTORY: Possible diabetes mellitus. MEDICATIONS: Unknown. ALLERGIES: Unknown. SYSTEMS REVIEW: A 12-point review of systems currently unable to perform. PHYSICAL EXAMINATION: GENERAL: Well-nourished, well-developed gentleman, currently orally intubated on mechanical ventilat ion. VITAL SIGNS: Currently afebrile, pulse is 70, blood pressure 112/74, O2 saturation 96%, FIO2 of 30%. NECK: Supple. No JVD or lymphadenopathy. CARDIAC: S1, S2, no added sounds or murmurs. CHEST: Diminished air entry bilaterally. ABDOMEN: Soft, nontender. No guarding or rebound. EXTREMITIES: No cyanosis, clubbing, or edema. NEUROLOGIC: Unable to assess. LABORATORIES: Troponin elevated at 11.4, INR was 1.1. Arterial blood gas pH 7.44, pCO2 of 32, pO2 1 39. INR 1.1. U-tox was negative. DIAGNOSTIC STUDIES: Chest x-ray showed likely previous granulomatous disease, left lung. CT spine u nremarkable, CT brain was also unremarkable. IMPRESSION AND PLAN: 1. Acute encephalopathic episode of unclear etiology. Differential does include seizure versus ence phalitis versus meningitis. 2. Non-ST elevation myocardial infarction. 3. Respiratory failure secondary to above. 4. Likely prior granulomatous disease. RECOMMENDATIONS: 1. Neuro evaluation. Consider early lumbar puncture and ID recommendations. 2. Consider coverage for viral encephalitis also. 3. Cardiology evaluation given elevated troponins. Currently on heparin drip. May possibly need ca rdiac catheterization. 4. Continue glycemic management. 5. Deep vein thrombosis and gastrointestinal prophylaxis. 6. Mechanical ventilation given altered mental status. Dictated By: ARMANDO MARCIAL MD SV/NTS Conf#: [id number] DID#: [id number] CC: TAMAR ARCHIBALD MD;*EndCC*
[2019-01-21] MEDS: METOPROLOL 25 MG TAB PO SCH ×2 (14:15→20:17)
[2019-01-21] MEDS: VANCOMYCIN 1 GM 250 ML IVPB SCH (14:17)
--- NOTE | 2019-01-21 16:15 | PN ---
Date/Time of Note Date/Time of Note DATE: 01/21/19 TIME: 16:11 Assessment/Plan VTE Prophylaxis Risk score (from Nsg)>0 risk: 2 SCD applied (from Ns): Yes Pharmacological prophylaxis: heparin Lines/Catheters IV Catheter Type (from Nrsg): Peripheral IV Urinary Cath still in place: Yes Reason Cath still needed: urinary retention Assessment/Plan Hospital Course Intubated and sedated RRR CTAB Soft nt nd Ext warm without edema 53 yo male without known PMH who was brought in by EMS for acute encephelopathy that occured at work today. He was extremely agitated on arrival and required sedation leading to intubation and mechanical ventilation. It sounds like the patient was in usual state of health prior to acute decompensation at work today. This suggests perhaps a toxidrome, however drug screen is negative. Perhpas this was seizure activity however it did not respond to ativan in the ED. We will need to observe him and obtain further collateral if possible. Acuter respiratory failure: - Continue mechanical ventilation per pulmonary Acute encephelopathy - Monitor neurologic status - Neuro consulted - Acyclovir added for possible encephalitis, but not typical presentation - MRI pending NSTEMI: - HR was in 200s by EMS. I suspect this is type II SC given normal EKG and no RWMA. Have started empiric heparin and aspirin for now however. Dr Giordano consulted DMII - Seems diabetic by glucose level. Basal/bolus insulin MONIQUE: - Resolved with fluids Transaminitis: - Imaging wnl, hepatitis serologies Lactic acidosis: - Fluids, empiric abx CC time 35 miintus Result Diagram: 01/21/19 0820 01/21/19 0502 Results 24hrs Laboratory Tests Test 01/20/19 16:17 01/20/19 16:19 01/20/19 16:38 01/20/19 16:56 Bedside Glucose 284 H White Blood 13.0 H Count Red Blood Count 4.82 Hemoglobin 13.9 L Hematocrit 40.8 L Mean Corpuscular 84.6 Volume Mean Corpuscular 28.8 L Hemoglobin Mean Corpuscular 34.1 Hemoglobin Jewels nt Red Cell 12.7 Distribution Width Platelet Count 322 Mean Platelet 11.5 H Volume Immature 0.500 H Granulocytes % Neutrophils % 48.1 Lymphocytes % 40.9 Monocytes % 7.7 Eosinophils % 2.3 Basophils % 0.5 Nucleated Red 0.0 Blood Cells % Immature 0.060 H Granulocytes # Neutrophils # 6.3 Lymphocytes # 5.3 H Monocytes # 1.0 H Eosinophils # 0.3 Basophils # 0.1 Nucleated Red 0.0 Blood Cells # Prothrombin Time 13.5 Prothrombin Time 1.1 Ratio INR 1.02 International Normalized Ratio Activated 28.3 Partial Thrombop last Time Sodium Level 143 Potassium Level 3.6 Chloride Level 106 Carbon Dioxide 19 L Level Anion Gap 18 H Blood Urea 26 H Nitrogen Creatinine 1.76 H Est Glomerular 41 L Filtrat Rate mL/min Glucose Level 246 H Calcium Level 8.9 Total Bilirubin 0.5 Direct Bilirubin 0.00 Indirect 0.5 Bilirubin Aspartate Amino 181 H Transf (AST/SGOT ) Alanine 127 H Aminotransferase (ALT/SGPT) Alkaline 84 Phosphatase Troponin I < 0.012 Total Protein 7.4 Albumin 4.5 Globulin 2.90 Albumin/Globulin 1.55 Ratio Free Thyroxine 2.41 Index Thyroxine (T4) 6.6 Triiodothyronine 36.5 (T3) Uptake Ethyl Alcohol < 10.0 H Level POC Venous 3.4 *H Lactate Urine Color YELLOW Urine Clarity SLIGHTLY CLOUDY A Urine pH 5.0 Urine Specific 1.015 Allison Urine Ketones TRACE A Urine Nitrite NEGATIVE Urine Bilirubin NEGATIVE Urine NEGATIVE Urobilinogen Urine Leukocyte NEGATIVE Esterase Urine 3 Microscopic RBC Urine 3 Microscopic WBC Urine Bacteria FEW A Urine Mucus FEW A Urine Hemoglobin 1+ H Urine Glucose 3+ H Urine Total 2+ H Protein Test 01/20/19 16:57 01/20/19 17:21 01/20/19 18:34 01/20/19 20:30 Urine Opiates Negative Screen Urine Negative Barbiturates Urine Negative Amphetamines Screen Urine Negative Benzodiazepines Screen Urine Cocaine Negative Screen Urine Negative Cannabinoids Blood Gas Blood arterial Specimen Source Arterial Blood 01/20/2019 7:45: Date Drawn 16 PM Arterial Blood 7.304 L pH (Temp corrected) Arterial Blood 41.6 pCO2 (Temp correct) Arterial Blood 540.2 H pO2 (Temp corrected) Arterial Blood 20.2 L HCO3 Arterial Blood -5.8 L Base Excess Arterial Blood 99.3 H Oxygen Saturatio n Tadeo Test ACCEPTAB Arterial Blood Right Radial Gas Puncture Site Arterial 0.3 Blood Carboxyhem oglobin Arterial Blood 0.3 Methemoglobin Blood Gas A-a O2 131.2 H Differential Oxyhemoglobin 98.7 Percent Blood Gas 37.0 Temperature Blood Gas 20.0 Respiration Rate Blood Gas Actual 20 Respiration Rate Blood Gas VENT - AC Modality FiO2 100.0 Blood Gas Tidal 500.0 Volume Blood Gas Low 5.0 PEEP Setting Blood Gas [place] Notified Whom Blood Gas 01/20/2019 7:58: Notified Time 05 PM Lactic Acid 2.4 *H 2.2 *H Level Test 01/20/19 21:40 01/20/19 23:45 01/21/19 01:08 01/21/19 05:02 Bedside Glucose 205 149 112 White Blood 11.0 H Count Red Blood Count 4.02 L Hemoglobin 11.7 L Hematocrit 34.9 L Mean Corpuscular 86.8 Volume Mean Corpuscular 29.1 Hemoglobin Mean Corpuscular 33.5 Hemoglobin Jewels nt Red Cell 12.7 Distribution Width Platelet Count 228 # Mean Platelet 11.5 H Volume Immature 0.400 Granulocytes % Neutrophils % 76.4 Lymphocytes % 13.0 L Monocytes % 9.1 Eosinophils % 0.8 Basophils % 0.3 Nucleated Red 0.0 Blood Cells % Immature 0.040 H Granulocytes # Neutrophils # 8.4 H Lymphocytes # 1.4 Monocytes # 1.0 H Eosinophils # 0.1 Basophils # 0.0 Nucleated Red 0.0 Blood Cells # Sodium Level 141 Potassium Level 4.4 Chloride Level 111 H Carbon Dioxide 23 Level Anion Gap 7 # Blood Urea 18 Nitrogen Creatinine 0.73 # Est Glomerular > 60 Filtrat Rate mL/min Glucose Level 75 # Hemoglobin A1c 6.0 H Calcium Level 7.9 L Total Bilirubin 0.7 Direct Bilirubin 0.00 Indirect 0.7 Bilirubin Aspartate Amino 128 H Transf (AST/SGOT ) Alanine 98 H Aminotransferase (ALT/SGPT) Alkaline 54 Phosphatase Total Protein 5.9 L Albumin 3.3 Globulin 2.60 Albumin/Globulin 1.26 Ratio Test 01/21/19 05:05 01/21/19 06:00 01/21/19 06:30 01/21/19 08:20 Bedside Glucose 81 Blood Gas Blood arterial Specimen Source Arterial Blood 01/21/2019 5:55: Date Drawn 16 AM Arterial Blood 7.442 pH (Temp corrected) Arterial Blood 32.7 L pCO2 (Temp correct) Arterial Blood 139.1 H pO2 (Temp corrected) Arterial Blood 21.8 L HCO3 Arterial Blood -1.6 Base Excess Arterial Blood 98.3 H Oxygen Saturatio n Tadeo Test ACCEPTAB Arterial Blood Right Radial Gas Puncture Site Arterial 0.3 Blood Carboxyhem oglobin Arterial Blood 0.2 Methemoglobin Blood Gas A-a O2 108.5 H Differential Oxyhemoglobin 97.8 Percent Blood Gas 37.0 Temperature Blood Gas 20.0 Respiration Rate Blood Gas Actual 20 Respiration Rate Blood Gas VENT - AC Modality FiO2 40.0 Blood Gas Tidal 500.0 Volume Blood Gas Mean 10 Airway Pressure Blood Gas Low 5.0 PEEP Setting Blood Gas 26.0 Inspiratory Pressure Blood Gas NATALIA BAXTER Notified Whom Blood Gas 01/21/2019 6:05: Notified Time 56 AM Creatine Kinase 701 H Creatine Kinase 2.8 Index Creatinine 19.90 H Kinase MB (Mass) Troponin I 9.000 *H White Blood 9.9 Count Red Blood Count 3.97 L Hemoglobin 11.6 L Hematocrit 33.5 L Mean Corpuscular 84.4 Volume Mean Corpuscular 29.2 Hemoglobin Mean Corpuscular 34.6 Hemoglobin Jewels nt Red Cell 12.8 Distribution Width Platelet Count 233 Mean Platelet 11.4 H Volume Immature 0.400 Granulocytes % Neutrophils % 74.5 Lymphocytes % 15.0 Monocytes % 8.6 Eosinophils % 1.3 Basophils % 0.2 Nucleated Red 0.0 Blood Cells % Immature 0.040 H Granulocytes # Neutrophils # 7.4 Lymphocytes # 1.5 Monocytes # 0.9 Eosinophils # 0.1 Basophils # 0.0 Nucleated Red 0.0 Blood Cells # Prothrombin Time 14.4 Prothrombin Time 1.1 Ratio INR 1.11 International Normalized Ratio Activated 32.1 Partial Thrombop last Time Test 01/21/19 08:34 01/21/19 10:06 01/21/19 14:20 01/21/19 15:03 Bedside Glucose 81 80 Creatine Kinase 676 H Creatine Kinase 3.0 Index Creatinine 20.10 H Kinase MB (Mass) Troponin I 11.400 *H Activated 61.5 H Partial Thrombop last Time Subjective 24 Hr Interval Summary Free Text/Dictation Unable to be weaned from ventilator today Remains intubated and sedated Started on heparin drip for NSTEMI Repeat head CT wnl Exam/Review of Systems Exam Vitals Vital Signs Date Temp Pulse Resp B/P (MAP) Pulse Ox O2 O2 Flow FiO2 Time Delivery Rate 01/21/19 58 20 102/73 100 15:30 (83) 01/21/19 30 14:58 01/21/19 98.4 Mechanical 12:00 Ventilator 01/20/19 18:30 Intake and Output 01/20/19 01/20/19 01/21/19 1515:00 23:00 07:00 IntakeIntake Total 584.6 ml 952.78 ml OutputOutput Total 950 ml 1028 ml BalanceBalance -365.4 ml -75.22 ml Results Results 24hrs Laboratory Tests Test 01/20/19 16:17 01/20/19 16:19 01/20/19 16:38 01/20/19 16:56 Bedside Glucose 284 H White Blood 13.0 H Count Red Blood Count 4.82 Hemoglobin 13.9 L Hematocrit 40.8 L Mean Corpuscular 84.6 Volume Mean Corpuscular 28.8 L Hemoglobin Mean Corpuscular 34.1 Hemoglobin Jewels nt Red Cell 12.7 Distribution Width Platelet Count 322 Mean Platelet 11.5 H Volume Immature 0.500 H Granulocytes % Neutrophils % 48.1 Lymphocytes % 40.9 Monocytes % 7.7 Eosinophils % 2.3 Basophils % 0.5 Nucleated Red 0.0 Blood Cells % Immature 0.060 H Granulocytes # Neutrophils # 6.3 Lymphocytes # 5.3 H Monocytes # 1.0 H Eosinophils # 0.3 Basophils # 0.1 Nucleated Red 0.0 Blood Cells # Prothrombin Time 13.5 Prothrombin Time 1.1 Ratio INR 1.02 International Normalized Ratio Activated 28.3 Partial Thrombop last Time Sodium Level 143 Potassium Level 3.6 Chloride Level 106 Carbon Dioxide 19 L Level Anion Gap 18 H Blood Urea 26 H Nitrogen Creatinine 1.76 H Est Glomerular 41 L Filtrat Rate mL/min Glucose Level 246 H Calcium Level 8.9 Total Bilirubin 0.5 Direct Bilirubin 0.00 Indirect 0.5 Bilirubin Aspartate Amino 181 H Transf (AST/SGOT ) Alanine 127 H Aminotransferase (ALT/SGPT) Alkaline 84 Phosphatase Troponin I < 0.012 Total Protein 7.4 Albumin 4.5 Globulin 2.90 Albumin/Globulin 1.55 Ratio Free Thyroxine 2.41 Index Thyroxine (T4) 6.6 Triiodothyronine 36.5 (T3) Uptake Ethyl Alcohol < 10.0 H Level POC Venous 3.4 *H Lactate Urine Color YELLOW Urine Clarity SLIGHTLY CLOUDY A Urine pH 5.0 Urine Specific 1.015 Allison Urine Ketones TRACE A Urine Nitrite NEGATIVE Urine Bilirubin NEGATIVE Urine NEGATIVE Urobilinogen Urine Leukocyte NEGATIVE Esterase Urine 3 Microscopic RBC Urine 3 Microscopic WBC Urine Bacteria FEW A Urine Mucus FEW A Urine Hemoglobin 1+ H Urine Glucose 3+ H Urine Total 2+ H Protein Test 01/20/19 16:57 01/20/19 17:21 01/20/19 18:34 01/20/19 20:30 Urine Opiates Negative Screen Urine Negative Barbiturates Urine Negative Amphetamines Screen Urine Negative Benzodiazepines Screen Urine Cocaine Negative Screen Urine Negative Cannabinoids Blood Gas Blood arterial Specimen Source Arterial Blood 01/20/2019 7:45: Date Drawn 16 PM Arterial Blood 7.304 L pH (Temp corrected) Arterial Blood 41.6 pCO2 (Temp correct) Arterial Blood 540.2 H pO2 (Temp corrected) Arterial Blood 20.2 L HCO3 Arterial Blood -5.8 L Base Excess Arterial Blood 99.3 H Oxygen Saturatio n Tadeo Test ACCEPTAB Arterial Blood Right Radial Gas Puncture Site Arterial 0.3 Blood Carboxyhem oglobin Arterial Blood 0.3 Methemoglobin Blood Gas A-a O2 131.2 H Differential Oxyhemoglobin 98.7 Percent Blood Gas 37.0 Temperature Blood Gas 20.0 Respiration Rate Blood Gas Actual 20 Respiration Rate Blood Gas VENT - AC Modality FiO2 100.0 Blood Gas Tidal 500.0 Volume Blood Gas Low 5.0 PEEP Setting Blood Gas [place] Notified Whom Blood Gas 01/20/2019 7:58: Notified Time 05 PM Lactic Acid 2.4 *H 2.2 *H Level Test 01/20/19 21:40 01/20/19 23:45 01/21/19 01:08 01/21/19 05:02 Bedside Glucose 205 149 112 White Blood 11.0 H Count Red Blood Count 4.02 L Hemoglobin 11.7 L Hematocrit 34.9 L Mean Corpuscular 86.8 Volume Mean Corpuscular 29.1 Hemoglobin Mean Corpuscular 33.5 Hemoglobin Jewels nt Red Cell 12.7 Distribution Width Platelet Count 228 # Mean Platelet 11.5 H Volume Immature 0.400 Granulocytes % Neutrophils % 76.4 Lymphocytes % 13.0 L Monocytes % 9.1 Eosinophils % 0.8 Basophils % 0.3 Nucleated Red 0.0 Blood Cells % Immature 0.040 H Granulocytes # Neutrophils # 8.4 H Lymphocytes # 1.4 Monocytes # 1.0 H Eosinophils # 0.1 Basophils # 0.0 Nucleated Red 0.0 Blood Cells # Sodium Level 141 Potassium Level 4.4 Chloride Level 111 H Carbon Dioxide 23 Level Anion Gap 7 # Blood Urea 18 Nitrogen Creatinine 0.73 # Est Glomerular > 60 Filtrat Rate mL/min Glucose Level 75 # Hemoglobin A1c 6.0 H Calcium Level 7.9 L Total Bilirubin 0.7 Direct Bilirubin 0.00 Indirect 0.7 Bilirubin Aspartate Amino 128 H Transf (AST/SGOT ) Alanine 98 H Aminotransferase (ALT/SGPT) Alkaline 54 Phosphatase Total Protein 5.9 L Albumin 3.3 Globulin 2.60 Albumin/Globulin 1.26 Ratio Test 01/21/19 05:05 01/21/19 06:00 01/21/19 06:30 01/21/19 08:20 Bedside Glucose 81 Blood Gas Blood arterial Specimen Source Arterial Blood 01/21/2019 5:55: Date Drawn 16 AM Arterial Blood 7.442 pH (Temp corrected) Arterial Blood 32.7 L pCO2 (Temp correct) Arterial Blood 139.1 H pO2 (Temp corrected) Arterial Blood 21.8 L HCO3 Arterial Blood -1.6 Base Excess Arterial Blood 98.3 H Oxygen Saturatio n Tadeo Test ACCEPTAB Arterial Blood Right Radial Gas Puncture Site Arterial 0.3 Blood Carboxyhem oglobin Arterial Blood 0.2 Methemoglobin Blood Gas A-a O2 108.5 H Differential Oxyhemoglobin 97.8 Percent Blood Gas 37.0 Temperature Blood Gas 20.0 Respiration Rate Blood Gas Actual 20 Respiration Rate Blood Gas VENT - AC Modality FiO2 40.0 Blood Gas Tidal 500.0 Volume Blood Gas Mean 10 Airway Pressure Blood Gas Low 5.0 PEEP Setting Blood Gas 26.0 Inspiratory Pressure Blood Gas NATALIA BAXTER Notified Whom Blood Gas 01/21/2019 6:05: Notified Time 56 AM Creatine Kinase 701 H Creatine Kinase 2.8 Index Creatinine 19.90 H Kinase MB (Mass) Troponin I 9.000 *H White Blood 9.9 Count Red Blood Count 3.97 L Hemoglobin 11.6 L Hematocrit 33.5 L Mean Corpuscular 84.4 Volume Mean Corpuscular 29.2 Hemoglobin Mean Corpuscular 34.6 Hemoglobin Jewels nt Red Cell 12.8 Distribution Width Platelet Count 233 Mean Platelet 11.4 H Volume Immature 0.400 Granulocytes % Neutrophils % 74.5 Lymphocytes % 15.0 Monocytes % 8.6 Eosinophils % 1.3 Basophils % 0.2 Nucleated Red 0.0 Blood Cells % Immature 0.040 H Granulocytes # Neutrophils # 7.4 Lymphocytes # 1.5 Monocytes # 0.9 Eosinophils # 0.1 Basophils # 0.0 Nucleated Red 0.0 Blood Cells # Prothrombin Time 14.4 Prothrombin Time 1.1 Ratio INR 1.11 International Normalized Ratio Activated 32.1 Partial Thrombop last Time Test 01/21/19 08:34 01/21/19 10:06 01/21/19 14:20 01/21/19 15:03 Bedside Glucose 81 80 Creatine Kinase 676 H Creatine Kinase 3.0 Index Creatinine 20.10 H Kinase MB (Mass) Troponin I 11.400 *H Activated 61.5 H Partial Thrombop last Time Medications Medication Current Medications Sodium Chloride 1,000 ml @ 80 mls/hr [id number] IV Last administered on 01/21/19at 08:23; Admin Dose 80 MLS/HR; Start 01/20/19 at 19:29 IV Flush (NS 3 ml) 3 ml PER PROTOCOL IV ; Start 01/20/19 at 19:30 Diagnostic Test (Pha) (Accu-Chek) 1 02 XX ; Start 01/21/19 at 02:00 Insulin Glargine (Lantus) 12 units DAILY@2000 SC Last administered on 01/20/19at 23:48; Admin Dose 12 UNITS; Start 01/20/19 at 20:00 Vancomycin HCl (Vanco Iv Per Pharmacy) VANCOMYCIN PER PHARMACY PER PROTOCOL XX ; Start 01/20/19 at 20:00 Piperacillin Sod/ Tazobactam Sod 100 ml @ 200 mls/hr Q8 IVPB Last administered on 01/21/19at 14:13; Admin Dose 200 MLS/HR; Start 01/20/19 at 22:00 Propofol 100 ml @ 2.46 mls/hr Q12H PRN IV SEDATION Last administered on 01/21/19at 08:23; Admin Dose 19.68 MLS/HR; Start 01/20/19 at 22:00 Insulin Aspart (Novolog Insulin Pen) NOVOLOG *MODERATE* ALGORI... Q4 SC ; Start 01/21/19 at 01:00 Heparin Sodium (Porcine) (Heparin (1000 Units/ml)) 4,000 unit PER PROTOCOL PRN IV aPTT<47; Start 01/21/19 at 08:00 Heparin Sodium (Porcine) 250 ml @ 8.4 mls/hr PER PROTOCOL IV Last administered on 01/21/19 08:18; Admin Dose 8.4 MLS/HR; Start 01/21/19 at 08:00 Fentanyl 100 ml @ 2.5 mls/hr TITRATE IV Last administered on 01/21/19at 09:23; Admin Dose 2.5 MLS/HR; Start 01/21/19 at 09:30 Aspirin (Aspirin) 81 mg DAILY PO ; Start 01/22/19 at 09:00 Acyclovir 500 mg/ Sodium Chloride 100 ml @ 100 mls/hr Q8 IVPB ; Start 01/21/19 at 13:00 Vancomycin HCl 250 ml @ 125 mls/hr Q12H IVPB Last administered on 01/21/19at 14:17; Admin Dose 125 MLS/HR; Start 01/21/19 at 13:00 Metoprolol Tartrate (Lopressor) 25 mg BID PO Last administered on 01/21/19 14:15; Admin Dose 25 MG; Start 01/21/19 at 13:00 TAMAR MCCLELLAN MD Jan 21, 2019 16:15
[2019-01-21] MEDS: ACYCLOVIR 500 MG in SOD CHLORIDE 0.9% 100 ML IVPB SCH ×2 (17:33→22:41)
[2019-01-21] MEDS: INSULIN GLARGINE [LANTus] (100 UNITS/ML) SYG SC SCH (20:00)
[2019-01-21] MEDS ORDERED: ACETAMINOPHEN 650MG/20.3ML CUP NGT PRN (20:30)
[2019-01-22] VITALS (46 sets, daily range): BP systolic 78–151; BP diastolic 56–94; PULSE 55–86; RESP 0–28
[2019-01-22] MEDS: INSULIN ASPART [NOVOLOG] 3 ML PEN SC SCH ×6 (01:00→20:12)
[2019-01-22] MEDS: ACCU-CHEK XX SCH (01:19)
[2019-01-22] MEDS: VANCOMYCIN 1 GM 250 ML IVPB SCH ×2 (01:21→11:36)
[2019-01-22] MEDS: PROPOFOL 100 ML IV PRN ×2 (02:50→11:40)
[2019-01-22] MEDS ORDERED: POTASSIUM CHLORIDE 20 MEQ POWDER FOR ORAL SOLN NGT ONE (05:00)
[2019-01-22] MEDS ORDERED: MAGNESIUM SULFATE 3 GM in DEXTROSE 5% 100 ML IVPB ONE (05:00)
[2019-01-22] MEDS: PIPER-TAZO 3.375 GM IV (PMX) 100 ML IVPB SCH ×3 (05:22→21:24)
[2019-01-22] MEDS: ACYCLOVIR 500 MG in SOD CHLORIDE 0.9% 100 ML IVPB SCH ×3 (06:21→21:24)
[2019-01-22] MEDS: ASPIRIN 81 MG TAB PO SCH (08:15)
[2019-01-22] MEDS: HEPARIN 25000 UNITS/250 ML 250 ML IV SCH (08:17)
[2019-01-22] MEDS: METOPROLOL 25 MG TAB PO SCH ×2 (08:18→20:11)
[2019-01-22] MEDS: SOD CHLORIDE 0.9% 1,000 ML IV SCH ×2 (08:20→11:00)
[2019-01-22] MEDS ORDERED: DEXMEDETOMIDINE IN DEXTROSE 5% 50 ML IV SCH (08:30)
--- NOTE | 2019-01-22 09:22 | CONS ---
Assessment/Plan Assessment/Plan Assessment/Plan (Recall) 53 yo M c/ uncertain PHx, presents for evaluation of ams and agitation. He is now s/p intubation for mechanical ventilation, and on high dose chemical sedation...which limits his neurologic evaluation... He is noted to have a MA, which raises concern for a concomitant acute embolic JACK PRIZER process... CT Head was, though, unremarkable. The clinical presentation is not classic for encephalitis.. UDS was negative HIV neg P: MRI brain when medically able OK to defer CSF evaluation for now Wean sedation as soon as medically able Continued medical management and supportive care per primary Will follow Consultation Date/Type/Reason Admit Date/Time Jan 20, 2019 at 19:00 Type of Consult Neurology Reason for Consultation ams Requesting Provider: TAMAR MCCLELLAN MD Date/Time of Note DATE: 01/22/19 TIME: 09:22 24 HR Interval Summary Free Text/Dictation Continues icu care Exam/Review of Systems Exam Vitals Vital Signs Date Temp Pulse Resp B/P (MAP) Pulse Ox O2 O2 Flow FiO2 Time Delivery Rate 01/22/19 67 08:00 01/22/19 20 110/80 100 Mechanical 06:00 (90) Ventilator 01/22/19 30 05:23 01/22/19 98.2 04:00 01/20/19 18:30 Intake and Output 01/21/19 01/21/19 01/22/19 1515:00 23:00 07:00 IntakeIntake Total 896.16 ml 1404.37 ml 1528.12 ml OutputOutput Total 1050 ml 550 ml 450 ml BalanceBalance -153.84 ml 854.37 ml 1078.12 ml Results Result Diagram: 01/22/19 0305 01/22/19 0305 Results 24hrs Laboratory Tests Test 01/21/19 10:06 01/21/19 14:20 01/21/19 15:03 01/21/19 16:28 Creatine Kinase 676 H Creatine Kinase 3.0 Index Creatinine Kinase 20.10 H MB (Mass) Troponin I 11.400 *H Bedside Glucose 80 Activated 61.5 H Partial Thrombopl ast Time Ammonia 17 Test 01/21/19 17:33 01/21/19 20:08 01/21/19 21:06 01/22/19 01:19 Bedside Glucose 62 L 77 125 Activated 52.7 H Partial Thrombopl ast Time Test 01/22/19 03:05 01/22/19 04:59 01/22/19 07:00 01/22/19 08:12 White Blood Count 6.6 # Red Blood Count 3.42 L Hemoglobin 10.3 L Hematocrit 29.1 L Mean Corpuscular 85.1 Volume Mean Corpuscular 30.1 Hemoglobin Mean Corpuscular 35.4 Hemoglobin Concen t Red Cell 13.0 Distribution Width Platelet Count 196 Mean Platelet 11.7 H Volume Immature 0.500 H Granulocytes % Neutrophils % 63.3 Lymphocytes % 24.1 Monocytes % 8.9 Eosinophils % 2.7 Basophils % 0.5 Nucleated Red 0.0 Blood Cells % Immature 0.030 Granulocytes # Neutrophils # 4.2 Lymphocytes # 1.6 Monocytes # 0.6 Eosinophils # 0.2 Basophils # 0.0 Nucleated Red 0.0 Blood Cells # Activated 67.5 H Partial Thrombopl ast Time Sodium Level 132 L Potassium Level 3.2 L Chloride Level 105 Carbon Dioxide 17 L Level Anion Gap 10 Blood Urea 9 # Nitrogen Creatinine 0.64 Est Glomerular > 60 Filtrat Rate mL/min Glucose Level 82 Calcium Level 6.1 L Phosphorus Level 2.6 Magnesium Level 1.6 L Total Bilirubin 0.3 Direct Bilirubin 0.00 Indirect 0.3 Bilirubin Aspartate Amino 69 H Transf (AST/SGOT) Alanine 75 H Aminotransferase (ALT/SGPT) Alkaline 52 Phosphatase Total Protein 5.0 L Albumin 2.5 L Globulin 2.50 Albumin/Globulin 1.00 Ratio Bedside Glucose 130 106 Blood Gas Blood arterial Specimen Source Arterial Blood 01/22/2019 8:55:3 Date Drawn 3 AM Arterial Blood pH 7.388 (Temp corrected) Arterial Blood 32.5 L pCO2 (Temp correct) Arterial Blood 125.4 H pO2 (Temp corrected) Arterial Blood 19.1 L HCO3 Arterial Blood -5.0 L Base Excess Arterial Blood 97.8 Oxygen Saturation Tadeo Test ACCEPTAB Arterial Blood Right Radial Gas Puncture Site Arterial 0.3 Blood Carboxyhemo globin Arterial Blood 0.2 Methemoglobin Blood Gas A-a O2 50.3 H Differential Oxyhemoglobin 97.3 Percent Blood Gas 37.0 Temperature Blood Gas 20.0 Respiration Rate Blood Gas Actual 20 Respiration Rate Blood Gas VENT - AC Modality FiO2 30.0 Blood Gas Tidal 500.0 Volume Blood Gas Low 5.0 PEEP Setting Blood Gas DT Notified Whom Blood Gas 01/22/2019 9:20:2 Notified Time 2 AM Medications Medication Current Medications Sodium Chloride 1,000 ml @ 80 mls/hr [id number] IV Last administered on 01/21/19 08:23; Admin Dose 80 MLS/HR; Start 01/20/19 at 19:29 IV Flush (NS 3 ml) 3 ml PER PROTOCOL IV ; Start 01/20/19 at 19:30 Diagnostic Test (Pha) (Accu-Chek) XX ; Start 01/21/19 at 02:00 Insulin Glargine (Lantus) 12 units DAILY@2000 SC Last administered on 01/20/19 23:48; Admin Dose 12 UNITS; Start 01/20/19 at 20:00 Vancomycin HCl (Vanco Iv Per Pharmacy) VANCOMYCIN PER PHARMACY PER PROTOCOL XX ; Start 01/20/19 at 20:00 Piperacillin Sod/ Tazobactam Sod 100 ml @ 200 mls/hr Q8 IVPB Last administered on 01/22/19 05:22; Admin Dose 200 MLS/HR; Start 01/20/19 at 22:00 Propofol 100 ml @ 2.46 mls/hr Q12H PRN IV SEDATION Last administered on 01/22/19 02:50; Admin Dose 17.22 MLS/HR; Start 01/20/19 at 22:00 Insulin Aspart (Novolog Insulin Pen) NOVOLOG *MODERATE* ALGORI... Q4 SC ; Start 01/21/19 at 01:00 Heparin Sodium (Porcine) (Heparin (1000 Units/ml)) 4,000 unit PER PROTOCOL PRN IV aPTT<47; Start 01/21/19 at 08:00 Heparin Sodium (Porcine) 250 ml @ 8.4 mls/hr PER PROTOCOL IV Last administered on 01/22/19 08:17; Admin Dose 10 MLS/HR; Start 01/21/19 at 08:00 Fentanyl 100 ml @ 2.5 mls/hr TITRATE IV Last administered on 01/21/19 09:23; Admin Dose 2.5 MLS/HR; Start 01/21/19 at 09:30 Aspirin (Aspirin) 81 mg DAILY PO Last administered on 01/22/19at 08:15; Admin Dose 81 MG; Start 01/22/19 at 09:00 Acyclovir 500 mg/ Sodium Chloride 100 ml @ 100 mls/hr Q8 IVPB Last administered on 01/22/19 06:21; Admin Dose 100 MLS/HR; Start 01/21/19 at 13:00 Vancomycin HCl 250 ml @ 125 mls/hr Q12H IVPB Last administered on 01/22/19 01:21; Admin Dose 125 MLS/HR; Start 01/21/19 at 13:00 Metoprolol Tartrate (Lopressor) 25 mg BID PO Last administered on 01/21/19 14:15; Admin Dose 25 MG; Start 01/21/19 at 13:00 Acetaminophen (Tylenol Liquid) 650 mg Q6 PRN NGT MILD PAIN(1-3)OR ELEVATED TEMP Last administered on 01/21/19 20:39; Admin Dose 650 MG; Start 01/21/19 at 20:30 BENNY HALL Jan 22, 2019 09:22
[2019-01-22] MEDS: FENTAnyl (DRIP) 1000 mcg/100mL 100 ML IV SCH (09:24)
--- NOTE | 2019-01-22 10:54 | CONS ---
Assessment/Plan Assessment/Plan Hospital Course (Demo Recall) NSTEMI: So far trop increased to 11. EKG completely normal and no q waves. Echo with EF 50% and basal inferior wall abnormality vs artifact. I do not think this represents true ACS and may still just be Type II OK due to yet unclear link to his presenting delirium. If he had pesticide toxicity/anticholinergic he could have had coronary vasospasm as well. 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 CT head normal x2 Acute respiratory failure: intubated on admission for airway protection Acute renal failure: now resolved after IVF Transaminitis: resolved -trend one more trop to make sure it is trending down -continue heparin one more day -continue ASA -add lipitor 40mg -metoprolol 25mg BID as tolerated -vent per pulm -will need cardiac cath once extubated and cooperative Consultation Date/Type/Reason Admit Date/Time Jan 20, 2019 at 19:00 Initial Consult Date 01/21/19 Type of Consult Cardiology Requesting Provider: TAMAR MCCLELLAN MD Date/Time of Note DATE: 01/22/19 TIME: 10:50 24 HR Interval Summary Free Text/Dictation Temp to 100.2. Also on acyclovir now. CT head normal. Had bigeminy overnight but K/Mg low and now repleated. Sedated but responsive. remains on heparin drip. Per report pt has been having chest pain recently Exam/Review of Systems Vital Signs Vitals Vital Signs Date Temp Pulse Resp B/P (MAP) Pulse Ox O2 O2 Flow FiO2 Time Delivery Rate 01/22/19 62 20 107/68 100 09:30 (81) 01/22/19 Mechanical 09:00 Ventilator 01/22/19 30 08:00 01/22/19 99.5 08:00 01/20/19 18:30 Intake and Output 01/21/19 01/21/19 01/22/19 1515:00 23:00 07:00 IntakeIntake Total 896.16 ml 1404.37 ml 1685.34 ml OutputOutput Total 1050 ml 550 ml 550 ml BalanceBalance -153.84 ml 854.37 ml 1135.34 ml Exam Constitutional: No alert ENMT: intubated Neck: supple; No jvd Respiratory: diminished breath sounds; No clear to auscultation Cardiovascular: regular rate and rhythm; No edema, No systolic murmur Gastrointestinal: soft, non-tender; No distended Neurological: No nl mental status, No nl speech Labs Result Diagram: 01/22/19 0305 01/22/19 0801 Results 24hrs Laboratory Tests Test 01/21/19 14:20 01/21/19 15:03 01/21/19 16:28 01/21/19 17:33 Bedside Glucose 80 62 L Activated 61.5 H Partial Thrombopl ast Time Ammonia 17 Test 01/21/19 20:08 01/21/19 21:06 01/22/19 01:19 01/22/19 03:05 Bedside Glucose 77 125 Activated 52.7 H 67.5 H Partial Thrombopl ast Time White Blood Count 6.6 # Red Blood Count 3.42 L Hemoglobin 10.3 L Hematocrit 29.1 L Mean Corpuscular 85.1 Volume Mean Corpuscular 30.1 Hemoglobin Mean Corpuscular 35.4 Hemoglobin Concen t Red Cell 13.0 Distribution Width Platelet Count 196 Mean Platelet 11.7 H Volume Immature 0.500 H Granulocytes % Neutrophils % 63.3 Lymphocytes % 24.1 Monocytes % 8.9 Eosinophils % 2.7 Basophils % 0.5 Nucleated Red 0.0 Blood Cells % Immature 0.030 Granulocytes # Neutrophils # 4.2 Lymphocytes # 1.6 Monocytes # 0.6 Eosinophils # 0.2 Basophils # 0.0 Nucleated Red 0.0 Blood Cells # Sodium Level 132 L Potassium Level 3.2 L Chloride Level 105 Carbon Dioxide 17 L Level Anion Gap 10 Blood Urea 9 # Nitrogen Creatinine 0.64 Est Glomerular > 60 Filtrat Rate mL/min Glucose Level 82 Calcium Level 6.1 L Phosphorus Level 2.6 Magnesium Level 1.6 L Total Bilirubin 0.3 Direct Bilirubin 0.00 Indirect 0.3 Bilirubin Aspartate Amino 69 H Transf (AST/SGOT) Alanine 75 H Aminotransferase (ALT/SGPT) Alkaline 52 Phosphatase Total Protein 5.0 L Albumin 2.5 L Globulin 2.50 Albumin/Globulin 1.00 Ratio Test 01/22/19 04:59 01/22/19 07:00 01/22/19 08:01 01/22/19 08:12 Bedside Glucose 130 106 Blood Gas Blood arterial Specimen Source Arterial Blood 01/22/2019 8:55:3 Date Drawn 3 AM Arterial Blood pH 7.388 (Temp corrected) Arterial Blood 32.5 L pCO2 (Temp correct) Arterial Blood 125.4 H pO2 (Temp corrected) Arterial Blood 19.1 L HCO3 Arterial Blood -5.0 L Base Excess Arterial Blood 97.8 Oxygen Saturation Tadeo Test ACCEPTAB Arterial Blood Right Radial Gas Puncture Site Arterial 0.3 Blood Carboxyhemo globin Arterial Blood 0.2 Methemoglobin Blood Gas A-a O2 50.3 H Differential Oxyhemoglobin 97.3 Percent Blood Gas 37.0 Temperature Blood Gas 20.0 Respiration Rate Blood Gas Actual 20 Respiration Rate Blood Gas VENT - AC Modality FiO2 30.0 Blood Gas Tidal 500.0 Volume Blood Gas Low 5.0 PEEP Setting Blood Gas DT Notified Whom Blood Gas 01/22/2019 9:20:2 Notified Time 2 AM Sodium Level 141 Potassium Level 4.4 Chloride Level 113 H Carbon Dioxide 23 Level Anion Gap 5 Blood Urea 10 Nitrogen Creatinine 0.78 Est Glomerular > 60 Filtrat Rate mL/min Glucose Level 113 Calcium Level 7.6 L Magnesium Level 2.6 #H Medications Medications Current Medications Sodium Chloride 1,000 ml @ 80 mls/hr [id number] IV Last administered on 01/21/19at 08:23; Admin Dose 80 MLS/HR; Start 01/20/19 at 19:29 IV Flush (NS 3 ml) 3 ml PER PROTOCOL IV ; Start 01/20/19 at 19:30 Diagnostic Test (Pha) (Accu-Chek) 1 ea 02 XX ; Start 01/21/19 at 02:00 Insulin Glargine (Lantus) 12 units DAILY@2000 SC Last administered on 01/20/19at 23:48; Admin Dose 12 UNITS; Start 01/20/19 at 20:00 Vancomycin HCl (Vanco Iv Per Pharmacy) VANCOMYCIN PER PHARMACY PER PROTOCOL XX ; Start 01/20/19 at 20:00 Piperacillin Sod/ Tazobactam Sod 100 ml @ 200 mls/hr Q8 IVPB Last administered on 01/22/19at 05:22; Admin Dose 200 MLS/HR; Start 01/20/19 at 22:00 Propofol 100 ml @ 2.46 mls/hr Q12H PRN IV SEDATION Last administered on 01/22/19at 02:50; Admin Dose 17.22 MLS/HR; Start 01/20/19 at 22:00 Insulin Aspart (Novolog Insulin Pen) NOVOLOG *MODERATE* ALGORI... Q4 SC ; Start 01/21/19 at 01:00 Heparin Sodium (Porcine) (Heparin (1000 Units/ml)) 4,000 unit PER PROTOCOL PRN IV aPTT<47; Start 01/21/19 at 08:00 Heparin Sodium (Porcine) 250 ml @ 8.4 mls/hr PER PROTOCOL IV Last administered on 01/22/19 08:17; Admin Dose 10 MLS/HR; Start 01/21/19 at 08:00 Fentanyl 100 ml @ 2.5 mls/hr TITRATE IV Last administered on 01/22/19 09:24; Admin Dose 5 MLS/HR; Start 01/21/19 at 09:30 Aspirin (Aspirin) 81 mg DAILY PO Last administered on 01/22/19 08:15; Admin Dose 81 MG; Start 01/22/19 at 09:00 Acyclovir 500 mg/ Sodium Chloride 100 ml @ 100 mls/hr Q8 IVPB Last administered on 01/22/19 06:21; Admin Dose 100 MLS/HR; Start 01/21/19 at 13:00 Vancomycin HCl 250 ml @ 125 mls/hr Q12H IVPB Last administered on 01/22/19 01:21; Admin Dose 125 MLS/HR; Start 01/21/19 at 13:00 Metoprolol Tartrate (Lopressor) 25 mg BID PO Last administered on 01/21/19 14:15; Admin Dose 25 MG; Start 01/21/19 at 13:00 Acetaminophen (Tylenol Liquid) 650 mg Q6 PRN NGT MILD PAIN(1-3)OR ELEVATED TEMP Last administered on 01/21/19at 20:39; Admin Dose 650 MG; Start 01/21/19 at 20:30 Atorvastatin Calcium (Lipitor) 40 mg HS PO ; Start 01/22/19 at 21:00; Status LUANNE FUNG Jan 22, 2019 10:54
--- NOTE | 2019-01-22 14:22 | PN ---
Date/Time of Note Date/Time of Note DATE: 01/22/19 TIME: 14:22 Assessment/Plan VTE Prophylaxis Risk score (from Nsg)>0 risk: 3 SCD applied (from Nsg): Yes Pharmacological prophylaxis: heparin Lines/Catheters IV Catheter Type (from Nrsg): Peripheral IV Urinary Cath still in place: Yes Reason Cath still needed: urinary retention Assessment/Plan Hospital Course Intubated Interactive, follows commands RRR CTAB Soft nt nd Ext warm without edema 53 yo male without known PMH who was brought in by EMS for acute encephelopathy that occured at work today. He was extremely agitated on arrival and required sedation leading to intubation and mechanical ventilation. It sounds like the patient was in usual state of health prior to acute decompensation at work today. This suggests perhaps a toxidrome, however drug screen is negative. Perhpas this was seizure activity however it did not respond to ativan in the ED. We will need to observe him and obtain further collateral if possible. Acuter respiratory failure: - Continue mechanical ventilation per pulmonary Acute encephelopathy - Monitor neurologic status - Neuro consulted - Acyclovir added for possible encephalitis, but not typical presentation - MRI pending NSTEMI: - HR was in 200s by EMS. I suspect this is type II [place] given normal EKG and no RWMA. Have started empiric heparin and aspirin for now however. Dr Giordano consulted DMII - Seems diabetic by glucose level. Basal/bolus insulin MONIQUE: - Resolved with fluids Transaminitis: - Imaging wnl, hepatitis serologies Lactic acidosis: - Fluids, empiric abx CC time 35 miintus Result Diagram: 01/22/19 0305 01/22/19 0801 Results 24hrs Laboratory Tests Test 01/21/19 15:03 01/21/19 16:28 01/21/19 17:33 01/21/19 20:08 Activated 61.5 H Partial Thrombopl ast Time Ammonia 17 Bedside Glucose 62 L 77 Test 01/21/19 21:06 01/22/19 01:19 01/22/19 03:05 01/22/19 04:59 Activated 52.7 H 67.5 H Partial Thrombopl ast Time Bedside Glucose 125 130 White Blood Count 6.6 # Red Blood Count 3.42 L Hemoglobin 10.3 L Hematocrit 29.1 L Mean Corpuscular 85.1 Volume Mean Corpuscular 30.1 Hemoglobin Mean Corpuscular 35.4 Hemoglobin Concen t Red Cell 13.0 Distribution Width Platelet Count 196 Mean Platelet 11.7 H Volume Immature 0.500 H Granulocytes % Neutrophils % 63.3 Lymphocytes % 24.1 Monocytes % 8.9 Eosinophils % 2.7 Basophils % 0.5 Nucleated Red 0.0 Blood Cells % Immature 0.030 Granulocytes # Neutrophils # 4.2 Lymphocytes # 1.6 Monocytes # 0.6 Eosinophils # 0.2 Basophils # 0.0 Nucleated Red 0.0 Blood Cells # Sodium Level 132 L Potassium Level 3.2 L Chloride Level 105 Carbon Dioxide 17 L Level Anion Gap 10 Blood Urea 9 # Nitrogen Creatinine 0.64 Est Glomerular > 60 Filtrat Rate mL/min Glucose Level 82 Calcium Level 6.1 L Phosphorus Level 2.6 Magnesium Level 1.6 L Total Bilirubin 0.3 Direct Bilirubin 0.00 Indirect 0.3 Bilirubin Aspartate Amino 69 H Transf (AST/SGOT) Alanine 75 H Aminotransferase (ALT/SGPT) Alkaline 52 Phosphatase Total Protein 5.0 L Albumin 2.5 L Globulin 2.50 Albumin/Globulin 1.00 Ratio Test 01/22/19 07:00 01/22/19 08:01 01/22/19 08:12 01/22/19 10:38 Blood Gas Blood arterial Specimen Source Arterial Blood 01/22/2019 8:55:3 Date Drawn 3 AM Arterial Blood pH 7.388 (Temp corrected) Arterial Blood 32.5 L pCO2 (Temp correct) Arterial Blood 125.4 H pO2 (Temp corrected) Arterial Blood 19.1 L HCO3 Arterial Blood -5.0 L Base Excess Arterial Blood 97.8 Oxygen Saturation Tadeo Test ACCEPTAB Arterial Blood Right Radial Gas Puncture Site Arterial 0.3 Blood Carboxyhemo globin Arterial Blood 0.2 Methemoglobin Blood Gas A-a O2 50.3 H Differential Oxyhemoglobin 97.3 Percent Blood Gas 37.0 Temperature Blood Gas 20.0 Respiration Rate Blood Gas Actual 20 Respiration Rate Blood Gas VENT - AC Modality FiO2 30.0 Blood Gas Tidal 500.0 Volume Blood Gas Low 5.0 PEEP Setting Blood Gas DT Notified Whom Blood Gas 01/22/2019 9:20:2 Notified Time 2 AM Sodium Level 141 Potassium Level 4.4 Chloride Level 113 H Carbon Dioxide 23 Level Anion Gap 5 Blood Urea 10 Nitrogen Creatinine 0.78 Est Glomerular > 60 Filtrat Rate mL/min Glucose Level 113 Calcium Level 7.6 L Magnesium Level 2.6 #H Bedside Glucose 106 Activated 67.6 H Partial Thrombopl ast Time Creatine Kinase 300 #H Creatine Kinase 1.4 Index Creatinine Kinase 4.31 H MB (Mass) Troponin I 2.290 *H Test 01/22/19 13:12 Bedside Glucose 108 Subjective 24 Hr Interval Summary Free Text/Dictation Remains intubated Exam/Review of Systems Exam Vitals Vital Signs Date Temp Pulse Resp B/P (MAP) Pulse Ox O2 O2 Flow FiO2 Time Delivery Rate 01/22/19 72 12:00 01/22/19 98.3 89/62 (71) 100 Mechanical 12:00 Ventilator 01/22/19 20 11:30 01/22/19 30 11:10 01/20/19 18:30 Intake and Output 01/21/19 01/21/19 01/22/19 1515:00 23:00 07:00 IntakeIntake Total 896.16 ml 1404.37 ml 1685.34 ml OutputOutput Total 1050 ml 550 ml 550 ml BalanceBalance -153.84 ml 854.37 ml 1135.34 ml Results Results 24hrs Laboratory Tests Test 01/21/19 15:03 01/21/19 16:28 01/21/19 17:33 01/21/19 20:08 Activated 61.5 H Partial Thrombopl ast Time Ammonia 17 Bedside Glucose 62 L 77 Test 01/21/19 21:06 01/22/19 01:19 01/22/19 03:05 01/22/19 04:59 Activated 52.7 H 67.5 H Partial Thrombopl ast Time Bedside Glucose 125 130 White Blood Count 6.6 # Red Blood Count 3.42 L Hemoglobin 10.3 L Hematocrit 29.1 L Mean Corpuscular 85.1 Volume Mean Corpuscular 30.1 Hemoglobin Mean Corpuscular 35.4 Hemoglobin Concen t Red Cell 13.0 Distribution Width Platelet Count 196 Mean Platelet 11.7 H Volume Immature 0.500 H Granulocytes % Neutrophils % 63.3 Lymphocytes % 24.1 Monocytes % 8.9 Eosinophils % 2.7 Basophils % 0.5 Nucleated Red 0.0 Blood Cells % Immature 0.030 Granulocytes # Neutrophils # 4.2 Lymphocytes # 1.6 Monocytes # 0.6 Eosinophils # 0.2 Basophils # 0.0 Nucleated Red 0.0 Blood Cells # Sodium Level 132 L Potassium Level 3.2 L Chloride Level 105 Carbon Dioxide 17 L Level Anion Gap 10 Blood Urea 9 # Nitrogen Creatinine 0.64 Est Glomerular > 60 Filtrat Rate mL/min Glucose Level 82 Calcium Level 6.1 L Phosphorus Level 2.6 Magnesium Level 1.6 L Total Bilirubin 0.3 Direct Bilirubin 0.00 Indirect 0.3 Bilirubin Aspartate Amino 69 H Transf (AST/SGOT) Alanine 75 H Aminotransferase (ALT/SGPT) Alkaline 52 Phosphatase Total Protein 5.0 L Albumin 2.5 L Globulin 2.50 Albumin/Globulin 1.00 Ratio Test 01/22/19 07:00 01/22/19 08:01 01/22/19 08:12 01/22/19 10:38 Blood Gas Blood arterial Specimen Source Arterial Blood 01/22/2019 8:55:3 Date Drawn 3 AM Arterial Blood pH 7.388 (Temp corrected) Arterial Blood 32.5 L pCO2 (Temp correct) Arterial Blood 125.4 H pO2 (Temp corrected) Arterial Blood 19.1 L HCO3 Arterial Blood -5.0 L Base Excess Arterial Blood 97.8 Oxygen Saturation Tadeo Test ACCEPTAB Arterial Blood Right Radial Gas Puncture Site Arterial 0.3 Blood Carboxyhemo globin Arterial Blood 0.2 Methemoglobin Blood Gas A-a O2 50.3 H Differential Oxyhemoglobin 97.3 Percent Blood Gas 37.0 Temperature Blood Gas 20.0 Respiration Rate Blood Gas Actual 20 Respiration Rate Blood Gas VENT - AC Modality FiO2 30.0 Blood Gas Tidal 500.0 Volume Blood Gas Low 5.0 PEEP Setting Blood Gas DT Notified Whom Blood Gas 01/22/2019 9:20:2 Notified Time 2 AM Sodium Level 141 Potassium Level 4.4 Chloride Level 113 H Carbon Dioxide 23 Level Anion Gap 5 Blood Urea 10 Nitrogen Creatinine 0.78 Est Glomerular > 60 Filtrat Rate mL/min Glucose Level 113 Calcium Level 7.6 L Magnesium Level 2.6 #H Bedside Glucose 106 Activated 67.6 H Partial Thrombopl ast Time Creatine Kinase 300 #H Creatine Kinase 1.4 Index Creatinine Kinase 4.31 H MB (Mass) Troponin I 2.290 *H Test 01/22/19 13:12 Bedside Glucose 108 Medications Medication Current Medications Sodium Chloride 1,000 ml @ 80 mls/hr [id number] IV Last administered on 01/22/19at 11:00; Admin Dose 80 MLS/HR; Start 01/20/19 at 19:29 IV Flush (NS 3 ml) 3 ml PER PROTOCOL IV ; Start 01/20/19 at 19:30 Diagnostic Test (Pha) (Accu-Chek) XX ; Start 01/21/19 at 02:00 Insulin Glargine (Lantus) 12 units DAILY@2000 SC Last administered on 01/20/19at 23:48; Admin Dose 12 UNITS; Start 01/20/19 at 20:00 Vancomycin HCl (Vanco Iv Per Pharmacy) VANCOMYCIN PER PHARMACY PER PROTOCOL XX ; Start 01/20/19 at 20:00 Piperacillin Sod/ Tazobactam Sod 100 ml @ 200 mls/hr Q8 IVPB Last administered on 01/22/19at 05:22; Admin Dose 200 MLS/HR; Start 01/20/19 at 22:00 Propofol 100 ml @ 2.46 mls/hr Q12H PRN IV SEDATION Last administered on 01/22/19at 11:40; Admin Dose 24.6 MLS/HR; Start 01/20/19 at 22:00 Insulin Aspart (Novolog Insulin Pen) NOVOLOG *MODERATE* ALGORI... Q4 SC ; Start 01/21/19 at 01:00 Heparin Sodium (Porcine) (Heparin (1000 Units/ml)) 4,000 unit PER PROTOCOL PRN IV aPTT<47; Start 01/21/19 at 08:00 Heparin Sodium (Porcine) 250 ml @ 8.4 mls/hr PER PROTOCOL IV Last administered on 01/22/19at 08:17; Admin Dose 10 MLS/HR; Start 01/21/19 at 08:00 Fentanyl 100 ml @ 2.5 mls/hr TITRATE IV Last administered on 01/22/19at 09:24; Admin Dose 5 MLS/HR; Start 01/21/19 at 09:30 Aspirin (Aspirin) 81 mg DAILY PO Last administered on 01/22/19at 08:15; Admin Dose 81 MG; Start 01/22/19 at 09:00 Acyclovir 500 mg/ Sodium Chloride 100 ml @ 100 mls/hr Q8 IVPB Last administered on 01/22/19at 06:21; Admin Dose 100 MLS/HR; Start 01/21/19 at 13:00 Vancomycin HCl 250 ml @ 125 mls/hr Q12H IVPB Last administered on 01/22/19at 11:36; Admin Dose 125 MLS/HR; Start 01/21/19 at 13:00 Metoprolol Tartrate (Lopressor) 25 mg BID PO Last administered on 01/21/19at 14:15; Admin Dose 25 MG; Start 01/21/19 at 13:00 Acetaminophen (Tylenol Liquid) 650 mg Q6 PRN NGT MILD PAIN(1-3)OR ELEVATED TEMP Last administered on 01/21/19at 20:39; Admin Dose 650 MG; Start 01/21/19 at 20:30 Atorvastatin Calcium (Lipitor) 40 mg HS PO ; Start 01/22/19 at 21:00 Miscellaneous Information (*Rx Drug Level Order Reminder*) VANCOMYCIN TROUGH AT 0000 0000 ONCE XX ; Start 01/23/19 at 00:00; Stop 01/23/19 at 00:01 TAMAR MCCLELLAN MD Jan 22, 2019 14:22
[2019-01-22] MEDS: INSULIN GLARGINE [LANTus] (100 UNITS/ML) SYG SC SCH (20:12)
[2019-01-22] MEDS: ATORVASTATIN 40 MG TAB PO SCH (20:18)
[2019-01-23] VITALS (18 sets, daily range): BP systolic 113–153; BP diastolic 61–101; PULSE 64–86; RESP 17–22
[2019-01-23] MEDS: INSULIN ASPART [NOVOLOG] 3 ML PEN SC SCH ×6 (00:52→20:29)
[2019-01-23] MEDS: VANCOMYCIN 1 GM 250 ML IVPB SCH (01:52)
[2019-01-23] MEDS: ACCU-CHEK XX SCH (01:55)
[2019-01-23] MEDS: PIPER-TAZO 3.375 GM IV (PMX) 100 ML IVPB SCH (05:09)
[2019-01-23] MEDS: ACYCLOVIR 500 MG in SOD CHLORIDE 0.9% 100 ML IVPB SCH (05:59)
[2019-01-23] MEDS: HEPARIN 25000 UNITS/250 ML 250 ML IV SCH ×3 (07:14→14:04)
[2019-01-23] MEDS: ASPIRIN 81 MG TAB PO SCH (08:49)
[2019-01-23] MEDS: METOPROLOL 25 MG TAB PO SCH ×2 (08:50→20:16)
--- NOTE | 2019-01-23 10:09 | RADRPT ---
Vent Rate: 66 bpm RR Interval: 904 msec IA Interval: 166 msec QRS Duration: 97 msec QT Interval: 424 msec QTC Interval: 446 msec P-R-T [place]: 70 - 73 - 73 degrees Sinus rhythm...normal P axis, V-rate 50- 99 Electronically Signed By: Torsten Morgan
--- NOTE | 2019-01-23 10:34 | CONS ---
Consult Date/Type/Reason Admit Date/Time Jan 20, 2019 at 19:00 Initial Consult Date 01/21/19 Type of Consult Pulmonary Requesting Provider: TAMAR MCCLELLAN MD Date/Time of Note DATE: 01/23/19 TIME: 10:32 Subjective Extubated yesterday following Precedex drip. Awake alert this morning no confusion no shortness of breath. Continues heparin drip for non-ST elevation SD. Objective Vital Signs Date Temp Pulse Resp B/P (MAP) Pulse Ox O2 O2 Flow FiO2 Time Delivery Rate 01/23/19 79 21 135/101 93 Room Air 10:00 (112) 01/23/19 97.8 08:00 01/22/19 3.0 17:46 01/22/19 30 15:00 Intake and Output 01/22/19 01/22/19 01/23/19 1515:00 23:00 07:00 IntakeIntake Total 1213.84 ml 1276.5 ml 389.5 ml OutputOutput Total 980 ml 1550 ml 670 ml BalanceBalance 233.84 ml -273.5 ml -280.5 ml Exam PHYSICAL EXAMINATION: GENERAL: Well-nourished, well-developed gentleman, awake alert oriented VITAL SIGNS: As above NECK: Supple. No JVD or lymphadenopathy. CARDIAC: S1, S2, no added sounds or murmurs. CHEST: Diminished air entry bilaterally. ABDOMEN: Soft, nontender. No guarding or rebound. EXTREMITIES: No cyanosis, clubbing, or edema. NEUROLOGIC: No focal deficits Vent Setting Ventilator Support Mode: CPAP, PS Fraction of Inspired Oxygen pe: 30 Positive End Expiratory Pressu: 5.0 Results/Medications Result Diagram: 01/22/19 0305 01/22/19 0801 Results 24 hrs Laboratory Tests Test 01/22/19 10:38 01/22/19 13:12 01/22/19 14:00 01/22/19 15:53 Activated 67.6 H 76.6 *H Partial Thrombopl ast Time Creatine Kinase 300 #H Creatine Kinase 1.4 Index Creatinine Kinase 4.31 H MB (Mass) Troponin I 2.290 *H Bedside Glucose 108 Blood Gas Blood arterial Specimen Source Arterial Blood 01/22/2019 2:06:3 Date Drawn 4 PM Arterial Blood pH 7.379 (Temp corrected) Arterial Blood 36.6 pCO2 (Temp correct) Arterial Blood 101.4 H pO2 (Temp corrected) Arterial Blood 21.1 L HCO3 Arterial Blood -3.5 L Base Excess Arterial Blood 97.0 Oxygen Saturation Tadeo Test ACCEPTAB Arterial Blood Right Radial Gas Puncture Site Arterial 0.3 Blood Carboxyhemo globin Arterial Blood 0 Methemoglobin Blood Gas A-a O2 69.5 H Differential Oxyhemoglobin 96.7 Percent Blood Gas 37.0 Temperature Blood Gas Actual 12 Respiration Rate Blood Gas VENT - CPAP Modality FiO2 30.0 Blood Gas Low 5.0 PEEP Setting Blood Gas 10 Pressure Support Blood Gas M.DOniel Notified Whom Blood Gas 01/22/2019 5:53:2 Notified Time 9 PM Test 01/22/19 17:28 01/22/19 20:10 01/22/19 23:36 01/23/19 00:51 Bedside Glucose 99 140 81 Activated 68.5 H Partial Thrombopl ast Time Vancomycin Level 7.1 L Trough Test 01/23/19 05:05 01/23/19 05:34 01/23/19 07:51 Bedside Glucose 78 77 Activated 77.3 *H Partial Thrombopl ast Time Medications Current Medications Sodium Chloride 1,000 ml @ 80 mls/hr [id number] IV Last administered on 01/22/19at 11:00; Admin Dose 80 MLS/HR; Start 01/20/19 at 19:29 IV Flush (NS 3 ml) 3 ml PER PROTOCOL IV ; Start 01/20/19 at 19:30 Diagnostic Test (Pha) (Accu-Chek) 1 ea 02 XX ; Start 01/21/19 at 02:00 Insulin Glargine (Lantus) 12 units DAILY@2000 SC Last administered on 01/22/19at 20:12; Admin Dose 12 UNITS; Start 01/20/19 at 20:00 Vancomycin HCl (Vanco Iv Per Pharmacy) VANCOMYCIN PER PHARMACY PER PROTOCOL XX ; Start 01/20/19 at 20:00 Piperacillin Sod/ Tazobactam Sod 100 ml @ 200 mls/hr Q8 IVPB Last administered on 01/23/19at 05:09; Admin Dose 200 MLS/HR; Start 01/20/19 at 22:00 Propofol 100 ml @ 2.46 mls/hr Q12H PRN IV SEDATION Last administered on 01/22/19at 11:40; Admin Dose 24.6 MLS/HR; Start 01/20/19 at 22:00 Insulin Aspart (Novolog Insulin Pen) NOVOLOG *MODERATE* ALGORI... Q4 SC ; Start 01/21/19 at 01:00 Heparin Sodium (Porcine) (Heparin (1000 Units/ml)) 4,000 unit PER PROTOCOL PRN IV aPTT<47; Start 01/21/19 at 08:00 Heparin Sodium (Porcine) 250 ml @ 8.4 mls/hr PER PROTOCOL IV Last administered on 01/23/19at 07:14; Admin Dose 8.8 MLS/HR; Start 01/21/19 at 08:00 Fentanyl 100 ml @ 2.5 mls/hr TITRATE IV Last administered on 01/22/19 09:24; Admin Dose 5 MLS/HR; Start 01/21/19 at 09:30 Aspirin (Aspirin) 81 mg DAILY PO Last administered on 01/23/19 08:49; Admin Dose 81 MG; Start 01/22/19 at 09:00 Acyclovir 500 mg/ Sodium Chloride 100 ml @ 100 mls/hr Q8 IVPB Last administered on 01/23/19 05:59; Admin Dose 100 MLS/HR; Start 01/21/19 at 13:00 Metoprolol Tartrate (Lopressor) 25 mg BID PO Last administered on 01/23/19 08:50; Admin Dose 25 MG; Start 01/21/19 at 13:00 Acetaminophen (Tylenol Liquid) 650 mg Q6 PRN NGT MILD PAIN(1-3)OR ELEVATED TEMP Last administered on 01/21/19at 20:39; Admin Dose 650 MG; Start 01/21/19 at 20:30 Atorvastatin Calcium (Lipitor) 40 mg HS PO Last administered on 01/22/19at 20:18; Admin Dose 40 MG; Start 01/22/19 at 21:00 Vancomycin HCl 1.25 gm/Sodium Chloride 250 ml @ 83.333 mls/ hr Q12H IVPB ; Start 01/23/19 at 13:00 Assessment/Plan Hospital Course (Demo Recall) IMPRESSION AND PLAN: 1. Acute encephalopathic episode of unclear etiology. No safely extubated 2. Non-ST elevation myocardial infarction. 3. Respiratory failure secondary to above. 4. Likely prior granulomatous disease. RECOMMENDATIONS: 1. Neuro recommendations 2. Heparin drip pending cardiology recommendations 3. Aspiration precautions advance diet as tolerated 4. Continue glycemic management. 5. Deep vein thrombosis and gastrointestinal prophylaxis. 6. DC Shukla catheter PT OT eval Transfer to telemetry Critical care time 40 minutes [facility]CIAL [facility] Jan 23, 2019 10:34
[2019-01-23] MEDS ORDERED: VANCOMYCIN HCL 1.25 GM in SOD CHLORIDE 0.9% 250 ML IVPB SCH (13:00)
--- NOTE | 2019-01-23 14:08 | PN ---
Date/Time of Note Date/Time of Note DATE: 01/23/19 TIME: 14:05 Assessment/Plan VTE Prophylaxis Risk score (from Nsg)>0 risk: 4 SCD applied (from Ns): Yes Pharmacological prophylaxis: heparin Lines/Catheters IV Catheter Type (from Nrsg): Peripheral IV Urinary Cath still in place: Yes Reason Cath still needed: urinary retention Assessment/Plan Hospital Course Extubated to room air Appears well AOx3 Interactive, follows commands RRR CTAB Soft nt nd Ext warm without edema 53 yo male without known PMH who was brought in by EMS for acute encephelopathy that occured at work today. He was extremely agitated on arrival and required sedation leading to intubation and mechanical ventilation. It sounds like the patient was in usual state of health prior to acute decompensation at work on day of admission. This suggests perhaps a toxidrome, however drug screen is negative. Perhpas this was seizure activity however it did not respond to ativan in the ED. He is s/p extubation and doing well without complaints Acute encephelopathy - Monitor neurologic status - Appears back to normal - Neuro consulted - MRI wihtout acute findings - Dc abx as no evidence of infection NSTEMI: - HR was in 200s by EMS, perhpas type 2 TN?. He is on started empiric heparin and aspirin for now however. Dr Giordano consulted. Plan for CT-cors vs angiography DMII - Seems diabetic by glucose level. Basal/bolus insulin MONIQUE: - Resolved with fluids Transaminitis: - Imaging wnl, hepatitis serologies Lactic acidosis: - Resolved DC: to home Result Diagram: 01/22/19 0305 01/22/19 0801 Results 24hrs Laboratory Tests Test 01/22/19 15:53 01/22/19 17:28 01/22/19 20:10 01/22/19 23:36 Activated 76.6 *H 68.5 H Partial Thromboplast Time Bedside Glucose 99 140 Vancomycin Level 7.1 L Trough Test 01/23/19 00:51 01/23/19 05:05 01/23/19 05:34 01/23/19 07:51 Bedside Glucose 81 78 77 Activated 77.3 *H Partial Thromboplast Time Test 01/23/19 10:35 01/23/19 11:46 01/23/19 13:17 Creatine Kinase 194 Creatine Kinase 1.0 Index Creatinine Kinase MB 1.86 (Mass) Troponin I 1.460 *H Bedside Glucose 125 Activated 54.8 H Partial Thromboplast Time Subjective 24 Hr Interval Summary Free Text/Dictation Extubated to room air Doing very well Denies complaitns No headache Logical and normal mentation per family at bedside Cannot remember events prior to admission Exam/Review of Systems Exam Vitals Vital Signs Date Temp Pulse Resp B/P (MAP) Pulse Ox O2 O2 Flow FiO2 Time Delivery Rate 01/23/19 97.7 12:00 01/23/19 83 12:00 01/23/19 21 121/78 93 Room Air 11:00 (92) 01/22/19 3.0 17:46 01/22/19 30 15:00 Intake and Output 01/22/19 01/22/19 01/23/19 1515:00 23:00 07:00 IntakeIntake Total 1213.84 ml 1276.5 ml 389.5 ml OutputOutput Total 980 ml 1550 ml 670 ml BalanceBalance 233.84 ml -273.5 ml -280.5 ml Constitutional: alert, oriented, well developed Psych: no complaints, nl mood/affect Head: normocephalic, atraumatic Eyes: nl conjunctiva, EOMI, nl lids, nl sclera, PERRL ENMT: nl external ears & nose, nl lips & teeth, nl nasal mucosa & septum Neck: supple, non-tender Respiratory: clear to auscultation, normal air movement Cardiovascular: regular rate and rhythm, nl pulses Gastrointestinal: soft, nl liver, spleen, non-tender Musculoskeletal: nl extremities to inspection, nl gait and stance Extremities: normal pulses Neurological: TECHNICAL TRANSLATOR II-XII intact, nl mental status, nl speech, nl strength Skin: nl turgor; No rash or lesions Lymph: nl lymph nodes Results Results 24hrs Laboratory Tests Test 01/22/19 15:53 01/22/19 17:28 01/22/19 20:10 01/22/19 23:36 Activated 76.6 *H 68.5 H Partial Thromboplast Time Bedside Glucose 99 140 Vancomycin Level 7.1 L Trough Test 01/23/19 00:51 01/23/19 05:05 01/23/19 05:34 01/23/19 07:51 Bedside Glucose 81 78 77 Activated 77.3 *H Partial Thromboplast Time Test 01/23/19 10:35 01/23/19 11:46 01/23/19 13:17 Creatine Kinase 194 Creatine Kinase 1.0 Index Creatinine Kinase MB 1.86 (Mass) Troponin I 1.460 *H Bedside Glucose 125 Activated 54.8 H Partial Thromboplast Time Medications Medication Current Medications IV Flush (NS 3 ml) 3 ml PER PROTOCOL IV ; Start 01/20/19 at 19:30 Insulin Glargine (Lantus) 12 units DAILY@2000 SC Last administered on 01/22/19at 20:12; Admin Dose 12 UNITS; Start 01/20/19 at 20:00 Insulin Aspart (Novolog Insulin Pen) NOVOLOG *MODERATE* ALGORI... Q4 SC ; Start 01/21/19 at 01:00 Heparin Sodium (Porcine) (Heparin (1000 Units/ml)) 4,000 unit PER PROTOCOL PRN IV aPTT<47; Start 01/21/19 at 08:00 Heparin Sodium (Porcine) 250 ml @ 8.4 mls/hr PER PROTOCOL IV Last administered on 01/23/19at 10:56; Admin Dose 8.8 MLS/HR; Start 01/21/19 at 08:00 Aspirin (Aspirin) 81 mg DAILY PO Last administered on 01/23/19 08:49; Admin Dose 81 MG; Start 01/22/19 at 09:00 Metoprolol Tartrate (Lopressor) 25 mg BID PO Last administered on 01/23/19 08:50; Admin Dose 25 MG; Start 01/21/19 at 13:00 Acetaminophen (Tylenol Liquid) 650 mg Q6 PRN NGT MILD PAIN(1-3)OR ELEVATED TEMP Last administered on 01/21/19at 20:39; Admin Dose 650 MG; Start 01/21/19 at 20:30 Atorvastatin Calcium (Lipitor) 40 mg HS PO Last administered on 01/22/19 20:18; Admin Dose 40 MG; Start 01/22/19 at 21:00 TAMAR MCCLELLAN MD Jan 23, 2019 14:08
--- NOTE | 2019-01-23 14:32 | CONS ---
Assessment/Plan Assessment/Plan Hospital Course (Demo Recall) NSTEMI: Trop peak of 11. EKG completely normal and no q waves. Echo with EF 50% and basal inferior wall abnormality vs artifact. With sudden dyspnea the possibility of PE exists. He definitely needs coronary evaluation. 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 His HR is in the 60s so should be adequate Delirium: CT head normal x2. 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 Still unclear etiology as no pesticide exposure. Now resolved Acute respiratory failure: intubated on admission for airway protection. Now extubated 01/22 Acute renal failure: now resolved after IVF Transaminitis: resolved -cardiac CTA then possible cath depending on findings -d/c heparin drip -continue ASA -lipitor 40mg -increase to metoprolol 50 mg BID Consultation Date/Type/Reason Admit Date/Time Jan 20, 2019 at 19:00 Initial Consult Date 01/21/19 Type of Consult Cardiology Requesting Provider: TAMAR MCCLELLAN MD Date/Time of Note DATE: 01/23/19 TIME: 14:26 24 HR Interval Summary Free Text/Dictation s/p extubation yesterday. Doing well. Used an interpretation phone to discuss history with the pt. He notes that he was cutting a tree when he got very SOB suddenly. He does not remember anything beyond that. No chest pain at that time but he has intermittent chest pain not necessarily with exertion. No prior cardiac history. Currently without symptoms. Exam/Review of Systems Vital Signs Vitals Vital Signs Date Temp Pulse Resp B/P (MAP) Pulse Ox O2 O2 Flow FiO2 Time Delivery Rate 01/23/19 97.7 12:00 01/23/19 83 12:00 01/23/19 21 121/78 93 Room Air 11:00 (92) 01/22/19 3.0 17:46 01/22/19 30 15:00 Intake and Output 01/22/19 01/22/19 01/23/19 1515:00 23:00 07:00 IntakeIntake Total 1213.84 ml 1276.5 ml 389.5 ml OutputOutput Total 980 ml 1550 ml 670 ml BalanceBalance 233.84 ml -273.5 ml -280.5 ml Exam Constitutional: alert, oriented Psych: no complaints, nl mood/affect Head: normocephalic, atraumatic Neck: supple; No jvd Respiratory: clear to auscultation; No crackles/rales Cardiovascular: regular rate and rhythm; No edema, No systolic murmur Gastrointestinal: soft, non-tender; No distended Neurological: nl mental status, nl speech Labs Result Diagram: 01/22/19 0305 01/22/19 0801 Results 24hrs Laboratory Tests Test 01/22/19 15:53 01/22/19 17:28 01/22/19 20:10 01/22/19 23:36 Activated 76.6 *H 68.5 H Partial Thromboplast Time Bedside Glucose 99 140 Vancomycin Level 7.1 L Trough Test 01/23/19 00:51 01/23/19 05:05 01/23/19 05:34 01/23/19 07:51 Bedside Glucose 81 78 77 Activated 77.3 *H Partial Thromboplast Time Test 01/23/19 10:35 01/23/19 11:46 01/23/19 13:17 Creatine Kinase 194 Creatine Kinase 1.0 Index Creatinine Kinase MB 1.86 (Mass) Troponin I 1.460 *H Bedside Glucose 125 Activated 54.8 H Partial Thromboplast Time Medications Medications Current Medications IV Flush (NS 3 ml) 3 ml PER PROTOCOL IV ; Start 01/20/19 at 19:30 Insulin Glargine (Lantus) 12 units DAILY@2000 SC Last administered on 01/22/19at 20:12; Admin Dose 12 UNITS; Start 01/20/19 at 20:00 Insulin Aspart (Novolog Insulin Pen) NOVOLOG *MODERATE* ALGORI... Q4 SC ; Start 01/21/19 at 01:00 Heparin Sodium (Porcine) (Heparin (1000 Units/ml)) 4,000 unit PER PROTOCOL PRN IV aPTT<47; Start 01/21/19 at 08:00 Heparin Sodium (Porcine) 250 ml @ 8.4 mls/hr PER PROTOCOL IV Last administered on 01/23/19at 10:56; Admin Dose 8.8 MLS/HR; Start 01/21/19 at 08:00 Aspirin (Aspirin) 81 mg DAILY PO Last administered on 01/23/19at 08:49; Admin Dose 81 MG; Start 01/22/19 at 09:00 Metoprolol Tartrate (Lopressor) 25 mg BID PO Last administered on 01/23/19at 08:50; Admin Dose 25 MG; Start 01/21/19 at 13:00 Acetaminophen (Tylenol Liquid) 650 mg Q6 PRN NGT MILD PAIN(1-3)OR ELEVATED TEMP Last administered on 01/21/19at 20:39; Admin Dose 650 MG; Start 01/21/19 at 20:30 Atorvastatin Calcium (Lipitor) 40 mg HS PO Last administered on 01/22/19at 20:18; Admin Dose 40 MG; Start 01/22/19 at 21:00 LUANNE BHAKTA Jan 23, 2019 14:32
[2019-01-23] MEDS: ATORVASTATIN 40 MG TAB PO SCH (20:15)
[2019-01-23] MEDS: ALBUTEROL/IPRATROPIUM (NEB) 3 ML AMP HHN SCH (20:25)
[2019-01-23] MEDS: INSULIN GLARGINE [LANTus] (100 UNITS/ML) SYG SC SCH (20:28)
[2019-01-24] MEDS: INSULIN ASPART [NOVOLOG] 3 ML PEN SC SCH ×5 (01:00→21:00)
[2019-01-24] MEDS: ALBUTEROL/IPRATROPIUM (NEB) 3 ML AMP HHN SCH ×6 (01:32→20:32)
[2019-01-24 03:28] VITALS: BP 111/59; PULSE 71; RESP 18
[2019-01-24] MEDS ORDERED: GLUCOSE GEL 15 GRAM TUBE BUCCAL PRN (03:30)
[2019-01-24] MEDS ORDERED: GLUCOSE GEL 15 GRAM TUBE PO PRN ×2 (03:30)
[2019-01-24] MEDS ORDERED: GLUCAGON 1 MG INJ IM PRN (03:30)
[2019-01-24] MEDS ORDERED: DEXTROSE 50% 50 ML SYRINGE IV PRN ×2 (03:30)
[2019-01-24] MEDS ORDERED: HEPARIN 5,000 UNIT/1 ML VIAL SC SCH (06:00)
[2019-01-24] MEDS: METOPROLOL 25 MG TAB PO SCH ×2 (06:47→21:02)
[2019-01-24] MEDS: ASPIRIN 81 MG TAB PO SCH (07:28)
[2019-01-24 07:32] VITALS: BP 124/72; PULSE 58; RESP 17
[2019-01-24] MEDS ORDERED: METOPROLOL 5 MG INJ IV PRN (09:00)
--- NOTE | 2019-01-24 09:18 | CONS ---
Assessment/Plan Assessment/Plan Hospital Course (Demo Recall) NSTEMI: Trop peak of 11. EKG completely normal and no q waves. Echo with EF 50% and basal inferior wall abnormality vs artifact. With sudden dyspnea the possibility of PE exists. He definitely needs coronary evaluation. 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 His HR is in the 60s so should be adequate Delirium: CT head normal x2. 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 Still unclear etiology as no pesticide exposure. Now resolved Acute respiratory failure: intubated on admission for airway protection. Now extubated 01/22 Acute renal failure: now resolved after IVF Transaminitis: resolved -cardiac CTA today then possible cath tomorrow depending on findings -continue ASA -lipitor 40mg -metoprolol 50 mg BID Consultation Date/Type/Reason Admit Date/Time Jan 20, 2019 at 19:00 Initial Consult Date 01/21/19 Type of Consult Cardiology Requesting Provider: TAMAR MCCLELLAN MD Date/Time of Note DATE: 01/24/19 TIME: 09:14 24 HR Interval Summary Free Text/Dictation No events. No complaints. HR 60s mostly this am Exam/Review of Systems Vital Signs Vitals Vital Signs Date Temp Pulse Resp B/P (MAP) Pulse Ox O2 O2 Flow FiO2 Time Delivery Rate 01/24/19 70 18 96 21 08:31 01/24/19 98.8 124/72 07:32 (89) 01/23/19 Room Air 15:55 01/22/19 3.0 17:46 Intake and Output 01/23/19 01/23/19 01/24/19 1515:00 23:00 07:00 IntakeIntake Total 150 ml 200 ml 400 ml OutputOutput Total 350 ml BalanceBalance -200 ml 200 ml 400 ml Exam Constitutional: alert, oriented Psych: no complaints, nl mood/affect Head: normocephalic, atraumatic Neck: supple; No jvd Respiratory: clear to auscultation; No crackles/rales Cardiovascular: regular rate and rhythm; No edema, No systolic murmur Gastrointestinal: soft, non-tender; No distended Neurological: nl mental status, nl speech Labs Result Diagram: 01/24/19 0501 01/24/19 0501 Results 24hrs Laboratory Tests Test 01/23/19 10:35 01/23/19 11:46 01/23/19 13:17 01/23/19 17:08 Creatine Kinase 194 Creatine Kinase 1.0 Index Creatinine Kinase MB 1.86 (Mass) Troponin I 1.460 *H Bedside Glucose 125 134 Activated 54.8 H Partial Thromboplast Time Test 01/23/19 20:13 01/23/19 20:18 01/24/19 01:40 01/24/19 05:01 Bedside Glucose 208 88 Activated 38.7 H Partial Thromboplast Time White Blood Count 6.0 Red Blood Count 4.09 L Hemoglobin 11.7 L Hematocrit 35.0 #L Mean Corpuscular 85.6 Volume Mean Corpuscular 28.6 L Hemoglobin Mean Corpuscular 33.4 Hemoglobin Concent Red Cell 12.7 Distribution Width Platelet Count 240 # Mean Platelet Volume 11.6 H Immature 0.500 H Granulocytes % Neutrophils % 64.4 Lymphocytes % 21.0 Monocytes % 10.4 Eosinophils % 3.2 Basophils % 0.5 Nucleated Red Blood 0.0 Cells % Immature 0.030 Granulocytes # Neutrophils # 3.9 Lymphocytes # 1.3 Monocytes # 0.6 Eosinophils # 0.2 Basophils # 0.0 Nucleated Red Blood 0.0 Cells # Sodium Level 143 Potassium Level 4.0 Chloride Level 105 Carbon Dioxide Level 30 Anion Gap 8 Blood Urea Nitrogen 9 Creatinine 0.80 Est Glomerular > 60 Filtrat Rate mL/min Glucose Level 123 Calcium Level 8.8 Total Bilirubin 0.5 Direct Bilirubin 0.00 Indirect Bilirubin 0.5 Aspartate Amino 28 Transf (AST/SGOT) Alanine 51 Aminotransferase (AL T/SGPT) Alkaline Phosphatase 63 Total Protein 6.6 Albumin 3.5 Globulin 3.10 Albumin/Globulin 1.12 Ratio Test 01/24/19 07:48 Bedside Glucose 126 Medications Medications Current Medications IV Flush (NS 3 ml) 3 ml PER PROTOCOL IV ; Start 01/20/19 at 19:30 Insulin Glargine (Lantus) 12 units DAILY@2000 SC Last administered on 01/23/19at 20:28; Admin Dose 12 UNITS; Start 01/20/19 at 20:00 Aspirin (Aspirin) 81 mg DAILY PO Last administered on 01/23/19at 08:49; Admin Dose 81 MG; Start 01/22/19 at 09:00 Acetaminophen (Tylenol Liquid) 650 mg Q6 PRN NGT MILD PAIN(1-3)OR ELEVATED TEMP Last administered on 01/21/19at 20:39; Admin Dose 650 MG; Start 01/21/19 at 20:30 Atorvastatin Calcium (Lipitor) 40 mg HS PO Last administered on 01/23/19at 20:15; Admin Dose 40 MG; Start 01/22/19 at 21:00 Metoprolol Tartrate (Lopressor) 50 mg BID PO Last administered on 01/24/19at 06:47; Admin Dose 50 MG; Start 01/23/19 at 21:00 Albuterol/ Ipratropium (Duoneb) 3 ml Q4H RESP THERAPY HHN Last administered on 01/24/19at 08:31; Admin Dose 3 ML; Start 01/23/19 at 21:00 Heparin Sodium (Porcine) (Heparin (5000 Units/1ml)) 5,000 unit Q8 SC ; Start 01/24/19 at 21:00 Diagnostic Test (Pha) (Accu-Chek) 1 ea 02 XX ; Start 01/25/19 at 02:00 Insulin Aspart (Novolog Insulin Pen) NOVOLOG *MODERATE* ALGORITHM WITH MEALS BEDTIME SC ; Start 01/24/19 at 08:00 Miscellaneous Information 1 ea NOTE XX ; Start 01/24/19 at 03:30 Glucose (Glutose) 15 gm Q15M PRN PO DECREASED GLUCOSE; Start 01/24/19 at 03:30 Glucose (Glutose) 22.5 gm Q15M PRN PO DECREASED GLUCOSE; Start 01/24/19 at 03:30 Dextrose (D50w Syringe) 25 ml Q15M PRN IV DECREASED GLUCOSE; Start 01/24/19 at 03:30 Dextrose (D50w Syringe) 50 ml Q15M PRN IV DECREASED GLUCOSE; Start 01/24/19 at 03:30 Glucagon (Glucagen) 1 mg Q15M PRN IM DECREASED GLUCOSE; Start 01/24/19 at 03:30 Glucose (Glutose) 15 gm Q15M PRN BUCCAL DECREASED GLUCOSE; Start 01/24/19 at 03:30 Metoprolol Tartrate (Lopressor) 5 mg [id number] PRN IV to be used for cardiac CTA; Start 01/24/19 at 09:00; Stop 01/25/19 at 08:59 LUANNE BHAKTA Jan 24, 2019 09:18
[2019-01-24] MEDS ORDERED: METOPROLOL 5 MG INJ ONE (11:00)
[2019-01-24] MEDS ORDERED: NITROGLYCERIN AEROSOL (4.9 GM) ONE (11:20)
[2019-01-24] MEDS ORDERED: SOD CHLORIDE 0.9% 100 ML ONE (11:47)
[2019-01-24] MEDS ORDERED: IOHEXOL 100 ML ONE (11:47)
--- NOTE | 2019-01-24 12:07 | CONS ---
Assessment/Plan Assessment/Plan Assessment/Plan (Recall) 53 yo M c/ uncertain PHx, who presents for evaluation and management of ams and agitation. The clinical picture could be consistent w/ delirium, which has shown clinical improvement. 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 MRI brain is reassuringly negative for acute intracranial pathology, though notable for chronic lacunes and small vessel ischemic changes. UDS was negative; HIV neg P: Tennga as necessary Limit sedating medications where possible Continued medical management and supportive care per primary Will sign off for now; please call w/ ?s Consultation Date/Type/Reason Admit Date/Time Jan 20, 2019 at 19:00 Type of Consult Neurology Reason for Consultation ams Requesting Provider: TAMAR MCCLELLAN MD Date/Time of Note DATE: 01/24/19 TIME: 12:03 24 HR Interval Summary Free Text/Dictation s/p MRI brain Exam/Review of Systems Exam Vitals Vital Signs Date Temp Pulse Resp B/P (MAP) Pulse Ox O2 O2 Flow FiO2 Time Delivery Rate 01/24/19 70 18 96 21 08:31 01/24/19 98.8 124/72 07:32 (89) 01/23/19 Room Air 15:55 01/22/19 3.0 17:46 Intake and Output 01/23/19 01/23/19 01/24/19 1414:59 22:59 06:59 IntakeIntake Total 150 ml 200 ml 400 ml OutputOutput Total 350 ml BalanceBalance -200 ml 200 ml 400 ml Results Result Diagram: 01/24/19 0501 01/24/19 0501 Results 24hrs Laboratory Tests Test 01/23/19 13:17 01/23/19 17:08 01/23/19 20:13 01/23/19 20:18 Activated 54.8 H 38.7 H Partial Thromboplast Time Bedside Glucose 134 208 Test 01/24/19 01:40 01/24/19 05:01 01/24/19 07:48 Bedside Glucose 88 126 White Blood Count 6.0 Red Blood Count 4.09 L Hemoglobin 11.7 L Hematocrit 35.0 #L Mean Corpuscular 85.6 Volume Mean Corpuscular 28.6 L Hemoglobin Mean Corpuscular 33.4 Hemoglobin Concent Red Cell 12.7 Distribution Width Platelet Count 240 # Mean Platelet Volume 11.6 H Immature 0.500 H Granulocytes % Neutrophils % 64.4 Lymphocytes % 21.0 Monocytes % 10.4 Eosinophils % 3.2 Basophils % 0.5 Nucleated Red Blood 0.0 Cells % Immature 0.030 Granulocytes # Neutrophils # 3.9 Lymphocytes # 1.3 Monocytes # 0.6 Eosinophils # 0.2 Basophils # 0.0 Nucleated Red Blood 0.0 Cells # Sodium Level 143 Potassium Level 4.0 Chloride Level 105 Carbon Dioxide Level 30 Anion Gap 8 Blood Urea Nitrogen 9 Creatinine 0.80 Est Glomerular > 60 Filtrat Rate mL/min Glucose Level 123 Calcium Level 8.8 Total Bilirubin 0.5 Direct Bilirubin 0.00 Indirect Bilirubin 0.5 Aspartate Amino 28 Transf (AST/SGOT) Alanine 51 Aminotransferase (AL T/SGPT) Alkaline Phosphatase 63 Total Protein 6.6 Albumin 3.5 Globulin 3.10 Albumin/Globulin 1.12 Ratio Medications Medication Current Medications IV Flush (NS 3 ml) 3 ml PER PROTOCOL IV ; Start 01/20/19 at 19:30 Insulin Glargine (Lantus) 12 units DAILY@2000 SC Last administered on 01/23/19at 20:28; Admin Dose 12 UNITS; Start 01/20/19 at 20:00 Aspirin (Aspirin) 81 mg DAILY PO Last administered on 01/23/19 08:49; Admin Dose 81 MG; Start 01/22/19 at 09:00 Acetaminophen (Tylenol Liquid) 650 mg Q6 PRN NGT MILD PAIN(1-3)OR ELEVATED TEMP Last administered on 01/21/19at 20:39; Admin Dose 650 MG; Start 01/21/19 at 20:30 Atorvastatin Calcium (Lipitor) 40 mg HS PO Last administered on 01/23/19at 20:15; Admin Dose 40 MG; Start 01/22/19 at 21:00 Metoprolol Tartrate (Lopressor) 50 mg BID PO Last administered on 01/24/19 06:47; Admin Dose 50 MG; Start 01/23/19 at 21:00 Albuterol/ Ipratropium (Duoneb) 3 ml Q4H RESP THERAPY HHN Last administered on 01/24/19 08:31; Admin Dose 3 ML; Start 01/23/19 at 21:00 Heparin Sodium (Porcine) (Heparin (5000 Units/1ml)) 5,000 unit Q8 SC ; Start 01/24/19 at 21:00 Diagnostic Test (Pha) (Accu-Chek) 1 ea 02 XX ; Start 01/25/19 at 02:00 Insulin Aspart (Novolog Insulin Pen) NOVOLOG *MODERATE* ALGORITHM WITH MEALS BEDTIME SC ; Start 01/24/19 at 08:00 Miscellaneous Information 1 ea NOTE XX ; Start 01/24/19 at 03:30 Glucose (Glutose) 15 gm Q15M PRN PO DECREASED GLUCOSE; Start 01/24/19 at 03:30 Glucose (Glutose) 22.5 gm Q15M PRN PO DECREASED GLUCOSE; Start 01/24/19 at 03:30 Dextrose (D50w Syringe) 25 ml Q15M PRN IV DECREASED GLUCOSE; Start 01/24/19 at 03:30 Dextrose (D50w Syringe) 50 ml Q15M PRN IV DECREASED GLUCOSE; Start 01/24/19 at 03:30 Glucagon (Glucagen) 1 mg Q15M PRN IM DECREASED GLUCOSE; Start 01/24/19 at 03:30 Glucose (Glutose) 15 gm Q15M PRN BUCCAL DECREASED GLUCOSE; Start 01/24/19 at 03:30 Metoprolol Tartrate (Lopressor) 5 mg Q4DNTCHP PRN IV to be used for cardiac CTA; Start 01/24/19 at 09:00; Stop 01/25/19 at 08:59 BENNY HALL Jan 24, 2019 12:07
--- NOTE | 2019-01-24 12:22 | CONS ---
Consult Date/Type/Reason Admit Date/Time Jan 20, 2019 at 19:00 Initial Consult Date 01/21/19 Type of Consult Pulmonary Requesting Provider: TAMAR MCCLELLAN MD Date/Time of Note DATE: 01/24/19 TIME: 12:22 Subjective Coronary angiography today. Objective Vital Signs Date Temp Pulse Resp B/P (MAP) Pulse Ox O2 O2 Flow FiO2 Time Delivery Rate 01/24/19 70 18 96 21 08:31 01/24/19 98.8 124/72 07:32 (89) 01/23/19 Room Air 15:55 01/22/19 3.0 17:46 Intake and Output 01/23/19 01/23/19 01/24/19 1515:00 23:00 07:00 IntakeIntake Total 150 ml 200 ml 400 ml OutputOutput Total 350 ml BalanceBalance -200 ml 200 ml 400 ml Exam PHYSICAL EXAMINATION: GENERAL: Well-nourished, well-developed gentleman, awake alert oriented VITAL SIGNS: As above NECK: Supple. No JVD or lymphadenopathy. CARDIAC: S1, S2, no added sounds or murmurs. CHEST: Diminished air entry bilaterally. ABDOMEN: Soft, nontender. No guarding or rebound. EXTREMITIES: No cyanosis, clubbing, or edema. NEUROLOGIC: No focal deficits Vent Setting Ventilator Support Mode: CPAP, PS Fraction of Inspired Oxygen pe: 21 Positive End Expiratory Pressu: 5.0 Results/Medications Result Diagram: 01/24/19 0501 01/24/19 0501 Results 24 hrs Laboratory Tests Test 01/23/19 13:17 01/23/19 17:08 01/23/19 20:13 01/23/19 20:18 Activated 54.8 H 38.7 H Partial Thromboplast Time Bedside Glucose 134 208 Test 01/24/19 01:40 01/24/19 05:01 01/24/19 07:48 Bedside Glucose 88 126 White Blood Count 6.0 Red Blood Count 4.09 L Hemoglobin 11.7 L Hematocrit 35.0 #L Mean Corpuscular 85.6 Volume Mean Corpuscular 28.6 L Hemoglobin Mean Corpuscular 33.4 Hemoglobin Concent Red Cell 12.7 Distribution Width Platelet Count 240 # Mean Platelet Volume 11.6 H Immature 0.500 H Granulocytes % Neutrophils % 64.4 Lymphocytes % 21.0 Monocytes % 10.4 Eosinophils % 3.2 Basophils % 0.5 Nucleated Red Blood 0.0 Cells % Immature 0.030 Granulocytes # Neutrophils # 3.9 Lymphocytes # 1.3 Monocytes # 0.6 Eosinophils # 0.2 Basophils # 0.0 Nucleated Red Blood 0.0 Cells # Sodium Level 143 Potassium Level 4.0 Chloride Level 105 Carbon Dioxide Level 30 Anion Gap 8 Blood Urea Nitrogen 9 Creatinine 0.80 Est Glomerular > 60 Filtrat Rate mL/min Glucose Level 123 Calcium Level 8.8 Total Bilirubin 0.5 Direct Bilirubin 0.00 Indirect Bilirubin 0.5 Aspartate Amino 28 Transf (AST/SGOT) Alanine 51 Aminotransferase (AL T/SGPT) Alkaline Phosphatase 63 Total Protein 6.6 Albumin 3.5 Globulin 3.10 Albumin/Globulin 1.12 Ratio Medications Current Medications IV Flush (NS 3 ml) 3 ml PER PROTOCOL IV ; Start 01/20/19 at 19:30 Insulin Glargine (Lantus) 12 units DAILY@2000 SC Last administered on 01/23/19 20:28; Admin Dose 12 UNITS; Start 01/20/19 at 20:00 Aspirin (Aspirin) 81 mg DAILY PO Last administered on 01/23/19 08:49; Admin Dose 81 MG; Start 01/22/19 at 09:00 Acetaminophen (Tylenol Liquid) 650 mg Q6 PRN NGT MILD PAIN(1-3)OR ELEVATED TEMP Last administered on 01/21/19at 20:39; Admin Dose 650 MG; Start 01/21/19 at 20:30 Atorvastatin Calcium (Lipitor) 40 mg HS PO Last administered on 01/23/19 20:15 ; Admin Dose 40 MG; Start 01/22/19 at 21:00 Metoprolol Tartrate (Lopressor) 50 mg BID PO Last administered on 01/24/19at 06:47; Admin Dose 50 MG; Start 01/23/19 at 21:00 Albuterol/ Ipratropium (Duoneb) 3 ml Q4H RESP THERAPY HHN Last administered on 01/24/19 08:31; Admin Dose 3 ML; Start 01/23/19 at 21:00 Heparin Sodium (Porcine) (Heparin (5000 Units/1ml)) 5,000 unit Q8 SC ; Start 01/24/19 at 21:00 Diagnostic Test (Pha) (Accu-Chek) 1 ea 02 XX ; Start 01/25/19 at 02:00 Insulin Aspart (Novolog Insulin Pen) NOVOLOG *MODERATE* ALGORITHM WITH MEALS BEDTIME SC ; Start 01/24/19 at 08:00 Miscellaneous Information 1 ea NOTE XX ; Start 01/24/19 at 03:30 Glucose (Glutose) 15 gm Q15M PRN PO DECREASED GLUCOSE; Start 01/24/19 at 03:30 Glucose (Glutose) 22.5 gm Q15M PRN PO DECREASED GLUCOSE; Start 01/24/19 at 03:30 Dextrose (D50w Syringe) 25 ml Q15M PRN IV DECREASED GLUCOSE; Start 01/24/19 at 03:30 Dextrose (D50w Syringe) 50 ml Q15M PRN IV DECREASED GLUCOSE; Start 01/24/19 at 03:30 Glucagon (Glucagen) 1 mg Q15M PRN IM DECREASED GLUCOSE; Start 01/24/19 at 03:30 Glucose (Glutose) 15 gm Q15M PRN BUCCAL DECREASED GLUCOSE; Start 01/24/19 at 03:30 Metoprolol Tartrate (Lopressor) 5 mg [id number] PRN IV to be used for cardiac CTA; Start 01/24/19 at 09:00; Stop 01/25/19 at 08:59 Assessment/Plan Hospital Course (Demo Recall) IMPRESSION AND PLAN: 1. Acute encephalopathic episode of unclear etiology. No safely extubated 2. Non-ST elevation myocardial infarction. 3. Respiratory failure secondary to above. 4. Likely prior granulomatous disease. RECOMMENDATIONS: 1. Neuro recommendations resolving encephalopathy 2. Cardiac recommendations post angiography 3. Aspiration precautions advance diet as tolerated 4. Continue glycemic management. 5. Deep vein thrombosis and gastrointestinal prophylaxis. ARMANDO MARCIAL MD, [facility] Jan 24, 2019 12:22
[2019-01-24 15:25] VITALS: BP 139/71; PULSE 66; RESP 18
--- NOTE | 2019-01-24 15:55 | PN ---
Date/Time of Note Date/Time of Note DATE: 01/24/19 TIME: 15:51 Assessment/Plan VTE Prophylaxis Risk score (from Ns)>0 risk: 4 SCD applied (from Ns): Yes Pharmacological prophylaxis: heparin Lines/Catheters IV Catheter Type [facility]from [facility] Assessment/Plan Hospital Course 53 yo male without known PMH who was brought in by EMS for acute encephalopathy that occurred at work. Patient was extremely agitated on arrival and required sedation leading to intubation and mechanical ventilation. It sounds like the patient was in usual state of health prior to acute decompensation at work on day of admission. This suggests perhaps a toxidrome, however drug screen is negative. Perhaps this was seizure activity however it did not respond to ativan in the ED. He is s/p extubation and doing well without complaints Acute encephalopathy - Monitor neurologic status - Appears back to normal - Neuro consulted - MRI without acute findings - Dc abx as no evidence of infection NSTEMI: -Continue aspirin and statin, consultation with Dr Giordano appreciated, plan is for CTA of coronaries today and possible cath tomorrow DMII - Seems diabetic by glucose level. Basal/bolus insulin MONIQUE: - Resolved with fluids Transaminitis: - Imaging wnl, hepatitis serologies Lactic acidosis: - Resolved Prophylaxis: Heparin Result Diagram: 01/24/19 0501 01/24/19 0501 Results 24hrs Laboratory Tests Test 01/23/19 17:08 01/23/19 20:13 01/23/19 20:18 01/24/19 01:40 Bedside Glucose 134 208 88 Activated 38.7 H Partial Thromboplast Time Test 01/24/19 05:01 01/24/19 07:48 01/24/19 13:04 White Blood Count 6.0 Red Blood Count 4.09 L Hemoglobin 11.7 L Hematocrit 35.0 #L Mean Corpuscular 85.6 Volume Mean Corpuscular 28.6 L Hemoglobin Mean Corpuscular 33.4 Hemoglobin Concent Red Cell Distribution 12.7 Width Platelet Count 240 # Mean Platelet Volume 11.6 H Immature Granulocytes 0.500 H % Neutrophils % 64.4 Lymphocytes % 21.0 Monocytes % 10.4 Eosinophils % 3.2 Basophils % 0.5 Nucleated Red Blood 0.0 Cells % Immature Granulocytes 0.030 # Neutrophils # 3.9 Lymphocytes # 1.3 Monocytes # 0.6 Eosinophils # 0.2 Basophils # 0.0 Nucleated Red Blood 0.0 Cells # Sodium Level 143 Potassium Level 4.0 Chloride Level 105 Carbon Dioxide Level 30 Anion Gap 8 Blood Urea Nitrogen 9 Creatinine 0.80 Est Glomerular > 60 Filtrat Rate mL/min Glucose Level 123 Calcium Level 8.8 Total Bilirubin 0.5 Direct Bilirubin 0.00 Indirect Bilirubin 0.5 Aspartate Amino 28 Transf (AST/SGOT) Alanine 51 Aminotransferase (ALT /SGPT) Alkaline Phosphatase 63 Total Protein 6.6 Albumin 3.5 Globulin 3.10 Albumin/Globulin 1.12 Ratio Bedside Glucose 126 178 Subjective 24 Hr Interval Summary Constitutional: no complaints Exam/Review of Systems Exam Vitals Vital Signs Date Temp Pulse Resp B/P (MAP) Pulse Ox O2 O2 Flow FiO2 Time Delivery Rate 01/24/19 98.4 66 18 139/71 95 15:25 (93) 01/24/19 21 13:39 01/23/19 Room Air 15:55 01/22/19 3.0 17:46 Intake and Output 01/23/19 01/23/19 01/24/19 1515:00 23:00 07:00 IntakeIntake Total 150 ml 200 ml 400 ml OutputOutput Total 350 ml BalanceBalance -200 ml 200 ml 400 ml Constitutional: alert, oriented Respiratory: clear to auscultation Cardiovascular: regular rate and rhythm Gastrointestinal: soft; No distended Musculoskeletal: nl extremities to inspection Results Results 24hrs Laboratory Tests Test 01/23/19 17:08 01/23/19 20:13 01/23/19 20:18 01/24/19 01:40 Bedside Glucose 134 208 88 Activated 38.7 H Partial Thromboplast Time Test 01/24/19 05:01 01/24/19 07:48 01/24/19 13:04 White Blood Count 6.0 Red Blood Count 4.09 L Hemoglobin 11.7 L Hematocrit 35.0 #L Mean Corpuscular 85.6 Volume Mean Corpuscular 28.6 L Hemoglobin Mean Corpuscular 33.4 Hemoglobin Concent Red Cell Distribution 12.7 Width Platelet Count 240 # Mean Platelet Volume 11.6 H Immature Granulocytes 0.500 H % Neutrophils % 64.4 Lymphocytes % 21.0 Monocytes % 10.4 Eosinophils % 3.2 Basophils % 0.5 Nucleated Red Blood 0.0 Cells % Immature Granulocytes 0.030 # Neutrophils # 3.9 Lymphocytes # 1.3 Monocytes # 0.6 Eosinophils # 0.2 Basophils # 0.0 Nucleated Red Blood 0.0 Cells # Sodium Level 143 Potassium Level 4.0 Chloride Level 105 Carbon Dioxide Level 30 Anion Gap 8 Blood Urea Nitrogen 9 Creatinine 0.80 Est Glomerular > 60 Filtrat Rate mL/min Glucose Level 123 Calcium Level 8.8 Total Bilirubin 0.5 Direct Bilirubin 0.00 Indirect Bilirubin 0.5 Aspartate Amino 28 Transf (AST/SGOT) Alanine 51 Aminotransferase (ALT /SGPT) Alkaline Phosphatase 63 Total Protein 6.6 Albumin 3.5 Globulin 3.10 Albumin/Globulin 1.12 Ratio Bedside Glucose 126 178 Medications Medication Current Medications IV Flush (NS 3 ml) 3 ml PER PROTOCOL IV ; Start 01/20/19 at 19:30 Insulin Glargine (Lantus) 12 units DAILY@2000 SC Last administered on 01/23/19at 20:28; Admin Dose 12 UNITS; Start 01/20/19 at 20:00 Aspirin (Aspirin) 81 mg DAILY PO Last administered on 01/23/19 08:49; Admin Dose 81 MG; Start 01/22/19 at 09:00 Acetaminophen (Tylenol Liquid) 650 mg Q6 PRN NGT MILD PAIN(1-3)OR ELEVATED TEMP Last administered on 01/21/19 20:39; Admin Dose 650 MG; Start 01/21/19 at 20:30 Atorvastatin Calcium (Lipitor) 40 mg HS PO Last administered on 01/23/19at 20:15; Admin Dose 40 MG; Start 01/22/19 at 21:00 Metoprolol Tartrate (Lopressor) 50 mg BID PO Last administered on 01/24/19at 06:47; Admin Dose 50 MG; Start 01/23/19 at 21:00 Albuterol/ Ipratropium (Duoneb) 3 ml Q4H RESP THERAPY HHN Last administered on 01/24/19 08:31; Admin Dose 3 ML; Start 01/23/19 at 21:00 Heparin Sodium (Porcine) (Heparin (5000 Units/1ml)) 5,000 unit Q8 SC ; Start 01/24/19 at 21:00 Diagnostic Test (Pha) (Accu-Chek) 1 ea 02 XX ; Start 01/25/19 at 02:00 Insulin Aspart (Novolog Insulin Pen) NOVOLOG *MODERATE* ALGORITHM WITH MEALS BEDTIME SC Last administered on 01/24/19at 13:30; Admin Dose 2 UNIT; Start 01/24/19 at 08:00 Miscellaneous Information 1 ea NOTE XX ; Start 01/24/19 at 03:30 Glucose (Glutose) 15 gm Q15M PRN PO DECREASED GLUCOSE; Start 01/24/19 at 03:30 Glucose (Glutose) 22.5 gm Q15M PRN PO DECREASED GLUCOSE; Start 01/24/19 at 03:30 Dextrose (D50w Syringe) 25 ml Q15M PRN IV DECREASED GLUCOSE; Start 01/24/19 at 03:30 Dextrose (D50w Syringe) 50 ml Q15M PRN IV DECREASED GLUCOSE; Start 01/24/19 at 03:30 Glucagon (Glucagen) 1 mg Q15M PRN IM DECREASED GLUCOSE; Start 01/24/19 at 03:30 Glucose (Glutose) 15 gm Q15M PRN BUCCAL DECREASED GLUCOSE; Start 01/24/19 at 03:30 Metoprolol Tartrate (Lopressor) 5 mg [id number] PRN IV to be used for cardiac CTA; Start 01/24/19 at 09:00; Stop 01/25/19 at 08:59 MAJO LOPEZ Jan 24, 2019 15:55
[2019-01-24 19:12] VITALS: BP 140/68; PULSE 70; RESP 20
[2019-01-24] MEDS: ATORVASTATIN 40 MG TAB PO SCH (21:01)
[2019-01-24] MEDS: HEPARIN 5,000 UNIT/1 ML VIAL SC SCH ×2 (21:09→22:00)
[2019-01-24] MEDS: INSULIN GLARGINE [LANTus] (100 UNITS/ML) SYG SC SCH (21:09)
[2019-01-25] VITALS (21 sets, daily range): BP systolic 95–149; BP diastolic 56–88; PULSE 58–82; RESP 12–75
[2019-01-25] MEDS: ALBUTEROL/IPRATROPIUM (NEB) 3 ML AMP HHN SCH ×6 (01:44→20:41)
[2019-01-25] MEDS: ACCU-CHEK XX SCH (01:49)
[2019-01-25] MEDS: HEPARIN 5,000 UNIT/1 ML VIAL SC SCH ×3 (06:00→23:04)
--- NOTE | 2019-01-25 07:51 | CONS ---
Assessment/Plan Assessment/Plan Hospital Course (Demo Recall) NSTEMI: Trop peak of 11. EKG completely normal and no q waves. Echo with EF 50% and basal inferior wall abnormality vs artifact. Cardiac CTA showed mid LAD 50- 70% disease which needs better evaluation and possible PCI. Agreeable to cath Delirium: CT head normal x2. 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 Still unclear etiology as no pesticide exposure. Now resolved Acute respiratory failure: intubated on admission for airway protection. Now extubated 01/22 Acute renal failure: now resolved after IVF Transaminitis: resolved -cardiac cath this afternoon -continue ASA -lipitor 40mg -metoprolol 50 mg BID Consultation Date/Type/Reason Admit Date/Time Jan 20, 2019 at 19:00 Initial Consult Date 01/21/19 Type of Consult Cardiology Requesting Provider: TAMAR MCCLELLAN MD Date/Time of Note DATE: 01/25/19 TIME: 07:50 24 HR Interval Summary Free Text/Dictation cardiac CTA showed 50-70% LAD disease. Overall doing well Discussed cardiac cath with pt and daughter with an senior design engineering specialist. They understand the risks and benefits and wish to proceed Exam/Review of Systems Vital Signs Vitals Vital Signs Date Temp Pulse Resp B/P (MAP) Pulse Ox O2 O2 Flow FiO2 Time Delivery Rate 01/25/19 98.3 76 18 123/58 95 07:31 (79) 01/25/19 21 05:14 01/25/19 Room Air 04:04 01/22/19 3.0 17:46 Intake and Output 01/24/19 01/24/19 01/25/19 1515:00 23:00 07:00 IntakeIntake Total 370 ml 300 ml OutputOutput Total 800 ml BalanceBalance 370 ml -500 ml Exam Constitutional: alert, oriented Psych: no complaints, nl mood/affect Head: normocephalic, atraumatic Neck: supple; No jvd Respiratory: clear to auscultation; No crackles/rales Cardiovascular: regular rate and rhythm; No edema Gastrointestinal: soft, non-tender; No distended Neurological: nl mental status, nl speech Labs Result Diagram: 01/24/19 0501 01/24/19 0501 Results 24hrs Laboratory Tests Test 01/24/19 13:04 01/24/19 17:07 01/24/19 21:01 01/25/19 01:46 Bedside Glucose 178 181 121 105 Medications Medications Current Medications IV Flush (NS 3 ml) 3 ml PER PROTOCOL IV ; Start 01/20/19 at 19:30 Insulin Glargine (Lantus) 12 units DAILY@2000 SC Last administered on 01/24/19at 21:09; Admin Dose 12 UNITS; Start 01/20/19 at 20:00 Aspirin (Aspirin) 81 mg DAILY PO Last administered on 01/23/19at 08:49; Admin Dose 81 MG; Start 01/22/19 at 09:00 Acetaminophen (Tylenol Liquid) 650 mg Q6 PRN NGT MILD PAIN(1-3)OR ELEVATED TEMP Last administered on 01/21/19at 20:39; Admin Dose 650 MG; Start 01/21/19 at 20:30 Atorvastatin Calcium (Lipitor) 40 mg HS PO Last administered on 01/24/19at 21:01; Admin Dose 40 MG; Start 01/22/19 at 21:00 Metoprolol Tartrate (Lopressor) 50 mg BID PO Last administered on 01/24/19 21:02; Admin Dose 50 MG; Start 01/23/19 at 21:00 Albuterol/ Ipratropium (Duoneb) 3 ml Q4H RESP THERAPY HHN Last administered on 01/25/19at 05:14; Admin Dose 3 ML; Start 01/23/19 at 21:00 Heparin Sodium (Porcine) (Heparin (5000 Units/1ml)) 5,000 unit Q8 SC Last adm inistered on 01/24/19at 21:09; Admin Dose 5,000 UNIT; Start 01/24/19 at 21:00 Diagnostic Test (Pha) (Accu-Chek) 1 ea 02 XX Last administered on 01/25/19at 01:49; Admin Dose 1 EA; Start 01/25/19 at 02:00 Insulin Aspart (Novolog Insulin Pen) NOVOLOG *MODERATE* ALGORITHM WITH MEALS BEDTIME SC Last administered on 01/24/19at 17:15; Admin Dose 4 UNIT; Start 01/24/19 at 08:00 Miscellaneous Information 1 ea NOTE XX ; Start 01/24/19 at 03:30 Glucose (Glutose) 15 gm Q15M PRN PO DECREASED GLUCOSE; Start 01/24/19 at 03:30 Glucose (Glutose) 22.5 gm Q15M PRN PO DECREASED GLUCOSE; Start 01/24/19 at 03:30 Dextrose (D50w Syringe) 25 ml Q15M PRN IV DECREASED GLUCOSE; Start 01/24/19 at 03:30 Dextrose (D50w Syringe) 50 ml Q15M PRN IV DECREASED GLUCOSE; Start 01/24/19 at 03:30 Glucagon (Glucagen) 1 mg Q15M PRN IM DECREASED GLUCOSE; Start 01/24/19 at 03:30 Glucose (Glutose) 15 gm Q15M PRN BUCCAL DECREASED GLUCOSE; Start 01/24/19 at 03:30 Metoprolol Tartrate (Lopressor) 5 mg [id number] PRN IV to be used for cardiac CTA; Start 01/24/19 at 09:00; Stop 01/25/19 at 08:59 LUANNE BHAKTA Jan 25, 2019 07:51
[2019-01-25] MEDS: INSULIN ASPART [NOVOLOG] 3 ML PEN SC SCH ×4 (08:00→20:30)
[2019-01-25] MEDS: ASPIRIN 81 MG TAB PO SCH (08:20)
[2019-01-25] MEDS: METOPROLOL 25 MG TAB PO SCH ×2 (08:24→20:30)
--- NOTE | 2019-01-25 12:21 | CONS ---
Consult Date/Type/Reason Admit Date/Time Jan 20, 2019 at 19:00 Initial Consult Date 01/21/19 Type of Consult Pulmonary Requesting Provider: TAMAR MCCLELLAN MD Date/Time of Note DATE: 01/25/19 TIME: 12:20 Subjective Patient appears comfortable this morning no respiratory distress. Objective Vital Signs Date Temp Pulse Resp B/P (MAP) Pulse Ox O2 O2 Flow FiO2 Time Delivery Rate 01/25/19 98.4 75 16 118/71 97 11:17 (87) 01/25/19 21 05:14 01/25/19 Room Air 04:04 01/22/19 3.0 17:46 Intake and Output 01/24/19 01/24/19 01/25/19 1515:00 23:00 07:00 IntakeIntake Total 370 ml 300 ml OutputOutput Total 800 ml BalanceBalance 370 ml -500 ml Exam PHYSICAL EXAMINATION: GENERAL: Well-nourished, well-developed gentleman, awake alert oriented VITAL SIGNS: As above NECK: Supple. No JVD or lymphadenopathy. CARDIAC: S1, S2, no added sounds or murmurs. CHEST: Diminished air entry bilaterally. ABDOMEN: Soft, nontender. No guarding or rebound. EXTREMITIES: No cyanosis, clubbing, or edema. NEUROLOGIC: No focal deficits Vent Setting Ventilator Support Mode: CPAP, PS Fraction of Inspired Oxygen pe: 21 Positive End Expiratory Pressu: 5.0 Results/Medications Result Diagram: 01/24/19 0501 01/24/19 0501 Results 24 hrs Laboratory Tests Test 01/24/19 13:04 01/24/19 17:07 01/24/19 21:01 01/25/19 01:46 Bedside Glucose 178 181 121 105 Test 01/25/19 08:03 01/25/19 12:07 Bedside Glucose 138 138 Medications Current Medications IV Flush (NS 3 ml) 3 ml PER PROTOCOL IV ; Start 01/20/19 at 19:30 Insulin Glargine (Lantus) 12 units DAILY@2000 SC Last administered on 01/24/19at 21:09; Admin Dose 12 UNITS; Start 01/20/19 at 20:00 Aspirin (Aspirin) 81 mg DAILY PO Last administered on 01/25/19at 08:20; Admin Dose 81 MG; Start 01/22/19 at 09:00 Acetaminophen (Tylenol Liquid) 650 mg Q6 PRN NGT MILD PAIN(1-3)OR ELEVATED TEMP Last administered on 01/21/19at 20:39; Admin Dose 650 MG; Start 01/21/19 at 20:30 Atorvastatin Calcium (Lipitor) 40 mg HS PO Last administered on 01/24/19at 21:01; Admin Dose 40 MG; Start 01/22/19 at 21:00 Metoprolol Tartrate (Lopressor) 50 mg BID PO Last administered on 01/25/19at 08:24; Admin Dose 50 MG; Start 01/23/19 at 21:00 Albuterol/ Ipratropium (Duoneb) 3 ml Q4H RESP THERAPY HHN Last administered on 01/25/19 09:34; Admin Dose 3 ML; Start 01/23/19 at 21:00 Heparin Sodium (Porcine) (Heparin (5000 Units/1ml)) 5,000 unit Q8 SC Last administered on 01/24/19at 21:09; Admin Dose 5,000 UNIT; Start 01/24/19 at 21:00 Diagnostic Test (Pha) (Accu-Chek) 1 ea 02 XX Last administered on 01/25/19at 01:49; Admin Dose 1 EA; Start 01/25/19 at 02:00 Insulin Aspart (Novolog Insulin Pen) NOVOLOG *MODERATE* ALGORITHM WITH MEALS BEDTIME SC Last administered on 01/24/19at 17:15; Admin Dose 4 UNIT; Start 01/24/19 at 08:00 Miscellaneous Information 1 ea NOTE XX ; Start 01/24/19 at 03:30 Glucose (Glutose) 15 gm Q15M PRN PO DECREASED GLUCOSE; Start 01/24/19 at 03:30 Glucose (Glutose) 22.5 gm Q15M PRN PO DECREASED GLUCOSE; Start 01/24/19 at 03:30 Dextrose (D50w Syringe) 25 ml Q15M PRN IV DECREASED GLUCOSE; Start 01/24/19 at 03:30 Dextrose (D50w Syringe) 50 ml Q15M PRN IV DECREASED GLUCOSE; Start 01/24/19 at 03:30 Glucagon (Glucagen) 1 mg Q15M PRN IM DECREASED GLUCOSE; Start 01/24/19 at 03:30 Glucose (Glutose) 15 gm Q15M PRN BUCCAL DECREASED GLUCOSE; Start 01/24/19 at 03:30 Assessment/Plan Hospital Course (Demo Recall) IMPRESSION AND PLAN: 1. Acute encephalopathic episode of unclear etiology. No safely extubated 2. Non-ST elevation myocardial infarction. 3. Respiratory failure secondary to above. 4. Likely prior granulomatous disease. RECOMMENDATIONS: 1. Neuro recommendations resolving encephalopathy 2. Cardiac recommendations CT angiography demonstrated moderate LAD disease. Patient now pending cardiac catheterization with possible intervention. 3. Aspiration precautions advance diet as tolerated 4. Continue glycemic management. 5. Deep vein thrombosis and gastrointestinal prophylaxis. ARMANDO MARCIAL MD, [facility] Jan 25, 2019 12:21
[2019-01-25] MEDS ORDERED: IODIXANOL LOCM 100 ML BTL ONE (12:43)
[2019-01-25] MEDS ORDERED: HEPARIN 1000 UNITS/NS (A-LINE) 1,000 ML ONE (12:43)
[2019-01-25] MEDS ORDERED: VERAPAMIL 5 MG INJ ONE (12:43)
[2019-01-25] MEDS ORDERED: HEPARIN 1000 UNITS/ML 10 ML INJ ONE (12:43)
[2019-01-25] MEDS ORDERED: LIDOCAINE 1% (MDV) 20 ML INJ ONE (12:43)
[2019-01-25] MEDS ORDERED: NITROGLYCERIN (IC) 100 MCG/ML INJ ONE (12:44)
[2019-01-25] MEDS ORDERED: FENTAnyl 50 MCG/ML VIAL ONE (12:58)
[2019-01-25] MEDS ORDERED: MIDAZOLAM 1 MG/ML 2 ML INJ ONE (12:58)
[2019-01-25] MEDS ORDERED: SOD CHLORIDE 0.9% 1,000 ML IV SCH (13:59)
--- NOTE | 2019-01-25 14:10 | OPR ---
Date/Time of Note Date/Time of Note DATE: 01/25/19 TIME: 14:02 Operative Report Procedure Date: Jan 25, 2019 Preoperative Diagnosis NSTEMI with CAD on cardiac CTA Postoperative Diagnosis nonobstructive CAD, NSTEMI Operation/Procedure Performed see details Surgeon see signature line Strawhat Sizer none Anesthesia Type: moderate sedation Estimated Blood Loss: minimal Transfusion none Specimen none Grafts/Implants none Complications none Procedure Description Procedure Date:01/25/2019 Retail Operations Specialist/surgeon:Lenny Giordano MD. Procedures Performed: 1)Left heart catheterization with selective left and right coronary angiography. 2)Left ventricle angiography Pre-operative Diagnosis:NSTEMI, abnormal cardiac CTA Post-operative Diagnosis:same Indications: 63 yo M who presented with delirium and respiratory failure requiring intubation. He was found to have an NSTEMI with trop 11, normal EKG and normal EF. Cardiac CTA was obtained due to unusual presentation which showed 50-70% mid LAD disease. The decision was made to proceed with cath for further evaluation Description of Procedure: After informed consent, the patient was brought to the cardiac catheterization lab. The procedure site was prepped and draped in usual manner. The patient was premedicated with versed 1 mg and fentanyl 25 mcg. 2 mL lidocaine was injected into the right wrist. Next using the posterior wall technique, the 6 swedish sheath was inserted into the right radial artery. Next using the EBU 3.25 guide and diagnostic JR4, selective angiography of the left and right coronary arteries were obtained. The pigtail was then advanced into the ventricle and hemodynamics obtained. Left ventricle angiography was obtained. Next all equipment was removed and hemostasis was obtained by TR band. Findings: Anatomy/Hemodynamics: Left main:normal LAD:prox and mid 40% lesions. Prox lesion appears somewhat hazy but may be from streaming Diagonal:small vessel with ostial 90% Circumflex:large vessel with luminal irregularities Obtuse marginal:luminal irregularities RCA:luminal irregularities PDA:luminal irregularities PLV:luminal irregularities LV angiography: EF >70% LV-Ao: no gradient LVEDP: 4 mmHg Contrast used:95mL Estimated blood loss<10 mL. Specimen: none Grafts/implants: none Complications: none Assessment: NSTEMI: Cardiac CTA showed 50-70% LAD which is often overestimated on CT. Cath showed about 40% prox and mid LAD lesions. Small 90% diagonal which could possibly explain the NSTEMI. Due to the significantly elevated troponins, iFR/FFR or IVUS of the LAD would be reasonable but unfortunately is not curren tly available in the cardiac catheterization technician. It is reassuring that he had no precordial EKG changes on admission to explain a healed plaque rupture. The other possibility remaining is a PE Plan: -add plavix to ASA for medical management of NSTEMI and CAD -continue lipitor, metoprolol -if renal function stable, will also rule out PE tomorrow to complete the workup LENNY GIORDANO Jan 25, 2019 14:10
--- NOTE | 2019-01-25 14:39 | PN ---
Date/Time of Note Date/Time of Note DATE: 01/25/19 TIME: 14:38 Assessment/Plan VTE Prophylaxis Risk score (from Ns)>0 risk: 3 SCD applied (from Ns): Yes Pharmacological prophylaxis: heparin Lines/Catheters IV Catheter Type (from [facility]): [facility] Assessment/Plan Hospital Course 53 yo male without known PMH who was brought in by EMS for acute encephalopathy that occurred at work. Patient was extremely agitated on arrival and required sedation leading to intubation and mechanical ventilation. It sounds like the patient was in usual state of health prior to acute decompensation at work on day of admission. This suggests perhaps a toxidrome, however drug screen is negative. Perhaps this was seizure activity however it did not respond to ativan in the ED. He is s/p extubation and doing well without complaints Acute encephalopathy - Monitor neurologic status - Appears back to normal - Neuro consulted - MRI without acute findings - Dc abx as no evidence of infection NSTEMI: -Continue aspirin and statin, consultation with Dr Giordano appreciated, CTA with evidence of coronary disease, cath today DMII - Seems diabetic by glucose level. Basal/bolus insulin MONQIUE: - Resolved with fluids Transaminitis: - Imaging wnl, hepatitis serologies Lactic acidosis: - Resolved Prophylaxis: Heparin Result Diagram: 01/24/19 0501 01/24/19 0501 Results 24hrs Laboratory Tests Test 01/24/19 17:07 01/24/19 21:01 01/25/19 01:46 01/25/19 08:03 Bedside Glucose 181 121 105 138 Test 01/25/19 12:07 01/25/19 14:34 Bedside Glucose 138 116 Subjective 24 Hr Interval Summary Constitutional: no complaints Exam/Review of Systems Exam Vitals Vital Signs Date Temp Pulse Resp B/P (MAP) Pulse Ox O2 O2 Flow FiO2 Time Delivery Rate 01/25/19 98.4 75 16 118/71 97 11:17 (87) 01/25/19 21 05:14 01/25/19 Room Air 04:04 01/22/19 3.0 17:46 Intake and Output 01/24/19 01/24/19 01/25/19 1515:00 23:00 07:00 IntakeIntake Total 370 ml 300 ml OutputOutput Total 800 ml BalanceBalance 370 ml -500 ml Constitutional: alert, oriented Respiratory: clear to auscultation Cardiovascular: regular rate and rhythm Gastrointestinal: soft; No distended Musculoskeletal: nl extremities to inspection Results Results 24hrs Laboratory Tests Test 01/24/19 17:07 01/24/19 21:01 01/25/19 01:46 01/25/19 08:03 Bedside Glucose 181 121 105 138 Test 01/25/19 12:07 01/25/19 14:34 Bedside Glucose 138 116 Medications Medication Current Medications IV Flush (NS 3 ml) 3 ml PER PROTOCOL IV ; Start 01/20/19 at 19:30 Insulin Glargine (Lantus) 12 units DAILY@2000 SC Last administered on 01/24/19 21:09; Admin Dose 12 UNITS; Start 01/20/19 at 20:00 Aspirin (Aspirin) 81 mg DAILY PO Last administered on 01/25/19 08:20; Admin Dose 81 MG; Start 01/22/19 at 09:00 Acetaminophen (Tylenol Liquid) 650 mg Q6 PRN NGT MILD PAIN(1-3)OR ELEVATED TEMP Last administered on 01/21/19at 20:39; Admin Dose 650 MG; Start 01/21/19 at 20:30 Atorvastatin Calcium (Lipitor) 40 mg HS PO Last administered on 01/24/19 21:01; Admin Dose 40 MG; Start 01/22/19 at 21:00 Metoprolol Tartrate (Lopressor) 50 mg BID PO Last administered on 01/25/19 08:24; Admin Dose 50 MG; Start 01/23/19 at 21:00 Albuterol/ Ipratropium (Duoneb) 3 ml Q4H RESP THERAPY HHN Last administered on 01/25/19 09:34; Admin Dose 3 ML; Start 01/23/19 at 21:00 Heparin Sodium (Porcine) (Heparin (5000 Units/1ml)) 5,000 unit Q8 SC Last administered on 01/24/19 21:09; Admin Dose 5,000 UNIT; Start 01/24/19 at 21:00 Diagnostic Test (Pha) (Accu-Chek) 1 ea 02 XX Last administered on 01/25/19 01:49; Admin Dose 1 EA; Start 01/25/19 at 02:00 Insulin Aspart (Novolog Insulin Pen) NOVOLOG *MODERATE* ALGORITHM WITH MEALS BEDTIME SC Last administered on 7/1/19at 17:15; Admin Dose 4 UNIT; Start 01/24/19 at 08:00 Miscellaneous Information 1 ea NOTE XX ; Start 01/24/19 at 03:30 Glucose (Glutose) 15 gm Q15M PRN PO DECREASED GLUCOSE; Start 01/24/19 at 03:30 Glucose (Glutose) 22.5 gm Q15M PRN PO DECREASED GLUCOSE; Start 01/24/19 at 03:30 Dextrose (D50w Syringe) 25 ml Q15M PRN IV DECREASED GLUCOSE; Start 01/24/19 at 03:30 Dextrose (D50w Syringe) 50 ml Q15M PRN IV DECREASED GLUCOSE; Start 01/24/19 at 03:30 Glucagon (Glucagen) 1 mg Q15M PRN IM DECREASED GLUCOSE; Start 01/24/19 at 03:30 Glucose (Glutose) 15 gm Q15M PRN BUCCAL DECREASED GLUCOSE; Start 01/24/19 at 03:30 Sodium Chloride 1,000 ml @ 75 mls/hr [id number] IV Last administered on 01/25/19at 14:27; Admin Dose 75 MLS/HR; Start 01/25/19 at 13:59; Stop 01/26/19 at 03:18 Clopidogrel Bisulfate (plaVIX) 75 mg DAILY PO ; Start 01/26/19 at 09:00 MAJO LOPEZ Jan 25, 2019 14:39
[2019-01-25] MEDS: ATORVASTATIN 40 MG TAB PO SCH (20:30)
[2019-01-25] MEDS: INSULIN GLARGINE [LANTus] (100 UNITS/ML) SYG SC SCH (20:43)
[2019-01-26] VITALS: BP 113/60; PULSE 67; RESP 18
[2019-01-26] MEDS: ALBUTEROL/IPRATROPIUM (NEB) 3 ML AMP HHN SCH ×6 (01:43→20:13)
[2019-01-26] MEDS: ACCU-CHEK XX SCH (02:17)
[2019-01-26 04:00] VITALS: BP 115/69; PULSE 73; RESP 18
[2019-01-26] MEDS: HEPARIN 5,000 UNIT/1 ML VIAL SC SCH ×3 (06:32→21:45)
[2019-01-26 07:12] VITALS: BP 123/66; PULSE 77; RESP 20
[2019-01-26] MEDS: INSULIN ASPART [NOVOLOG] 3 ML PEN SC SCH ×4 (07:42→21:45)
[2019-01-26] MEDS: CLOPIDOGREL 75 MG TAB PO SCH (08:57)
[2019-01-26] MEDS: METOPROLOL 25 MG TAB PO SCH ×2 (08:57→21:54)
[2019-01-26] MEDS: ASPIRIN 81 MG TAB PO SCH (08:57)
[2019-01-26 11:10] VITALS: BP 124/58; PULSE 74; RESP 18
--- NOTE | 2019-01-26 12:39 | CONS ---
Assessment/Plan Assessment/Plan Hospital Course (Demo Recall) NSTEMI: Trop peak of 11. EKG completely normal and no q waves. Echo with EF 50% and basal inferior wall abnormality vs artifact.Cardiac CTA showed 50-70% LAD which is often overestimated on CT. Cath showed about 40% prox and mid LAD lesions. Small 90% diagonal which could possibly explain the NSTEMI. 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 It is reassuring that he had no precordial EKG changes on admission to explain a healed plaque rupture. The other possibility remaining is a PE Delirium: CT head normal x2. 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 Still unclear etiology as no pesticide exposure. Now resolved Acute respiratory failure: intubated on admission for airway protection. Now extubated 01/22 Acute renal failure: now resolved after IVF Transaminitis: resolved -chest CTA to r/o PE -if normal, no further testing and can be discharged with below -continue ASA -plavix for medical management of NSTEMI. If PE, can stop and use anticoagulation instead -lipitor 40mg -metoprolol 50 mg BID Consultation Date/Type/Reason Admit Date/Time Jan 20, 2019 at 19:00 Initial Consult Date 01/21/19 Type of Consult Cardiology Requesting Provider: TAMAR MCCLELLAN MD Date/Time of Note DATE: 01/26/19 TIME: 12:36 24 HR Interval Summary Free Text/Dictation No events. Has right upper back pain which he states started after something fell on his back 2 months ago. Exam/Review of Systems Vital Signs Vitals Vital Signs Date Temp Pulse Resp B/P (MAP) Pulse Ox O2 O2 Flow FiO2 Time Delivery Rate 01/26/19 98.2 74 18 124/58 96 Room Air 11:10 (80) 01/26/19 21 04:31 01/25/19 2.0 14:25 Intake and Output 01/25/19 01/25/19 01/26/19 1515:00 23:00 07:00 IntakeIntake Total 525 ml 600 ml OutputOutput Total 3 ml BalanceBalance 522 ml 600 ml Exam Constitutional: alert, oriented Psych: no complaints, nl mood/affect Head: normocephalic, atraumatic Neck: supple; No jvd Respiratory: clear to auscultation; No crackles/rales Cardiovascular: regular rate and rhythm; No edema Gastrointestinal: soft, non-tender; No distended Neurological: nl mental status, nl speech Labs Result Diagram: 01/26/19 1037 01/26/19 1037 Results 24hrs Laboratory Tests Test 01/25/19 14:34 01/25/19 17:03 01/25/19 20:29 01/26/19 02:17 Bedside Glucose 116 209 103 112 Test 01/26/19 07:42 01/26/19 10:37 01/26/19 11:50 Bedside Glucose 139 169 White Blood Count 7.0 Red Blood Count 4.28 L Hemoglobin 12.6 L Hematocrit 36.9 L Mean Corpuscular Volume 86.2 Mean Corpuscular 29.4 Hemoglobin Mean Corpuscular 34.1 Hemoglobin Concent Red Cell Distribution 12.6 Width Platelet Count 289 # Mean Platelet Volume 11.3 H Immature Granulocytes % 0.600 H Neutrophils % 71.7 Lymphocytes % 16.2 Monocytes % 7.0 Eosinophils % 4.1 Basophils % 0.4 Nucleated Red Blood 0.0 Cells % Immature Granulocytes # 0.040 H Neutrophils # 5.0 Lymphocytes # 1.1 Monocytes # 0.5 Eosinophils # 0.3 Basophils # 0.0 Nucleated Red Blood 0.0 Cells # D-Dimer 425.72 D-Dimer Comment Sodium Level 140 Potassium Level 4.4 Chloride Level 103 Carbon Dioxide Level 27 Anion Gap 10 Blood Urea Nitrogen 16 Creatinine 0.71 Est Glomerular Filtrat > 60 Rate mL/min Glucose Level 222 H Calcium Level 9.0 Total Bilirubin 0.6 Direct Bilirubin 0.00 Indirect Bilirubin 0.6 Aspartate Amino 59 H Transf (AST/SGOT) Alanine 41 Aminotransferase (ALT/SG PT) Alkaline Phosphatase 73 Total Protein 6.9 Albumin 3.8 Globulin 3.10 Albumin/Globulin Ratio 1.22 Medications Medications Current Medications IV Flush (NS 3 ml) 3 ml PER PROTOCOL IV ; Start 01/20/19 at 19:30 Insulin Glargine (Lantus) 12 units DAILY@1999 SC Last administered on 01/25/19at 20:43; Admin Dose 12 UNITS; Start 01/20/19 at 20:00 Aspirin (Aspirin) 81 mg DAILY PO Last administered on 01/26/19at 08:57; Admin Dose 81 MG; Start 01/22/19 at 09:00 Acetaminophen (Tylenol Liquid) 650 mg Q6 PRN NGT MILD PAIN(1-3)OR ELEVATED TEMP Last administered on 01/21/19at 20:39; Admin Dose 650 MG; Start 01/21/19 at 20:30 Atorvastatin Calcium (Lipitor) 40 mg HS PO Last administered on 01/25/19 20:30; Admin Dose 40 MG; Start 01/22/19 at 21:00 Metoprolol Tartrate (Lopressor) 50 mg BID PO Last administered on 01/26/19at 0 8:57; Admin Dose 50 MG; Start 01/23/19 at 21:00 Albuterol/ Ipratropium (Duoneb) 3 ml Q4H RESP THERAPY HHN Last administered on 01/26/19 04:30; Admin Dose 3 ML; Start 01/23/19 at 21:00 Heparin Sodium (Porcine) (Heparin (5000 Units/1ml)) 5,000 unit Q8 SC Last administered on 01/26/19 06:32; Admin Dose 5,000 UNIT; Start 01/24/19 at 21:00 Diagnostic Test (Pha) (Accu-Chek) 1 ea 02 XX Last administered on 01/26/19at 02:17; Admin Dose 1 EA; Start 01/25/19 at 02:00 Insulin Aspart (Novolog Insulin Pen) NOVOLOG *MODERATE* ALGORITHM WITH MEALS BEDTIME SC Last administered on 01/26/19at 11:52; Admin Dose 2 UNIT; Start 01/24/19 at 08:00 Miscellaneous Information 1 ea NOTE XX ; Start 01/24/19 at 03:30 Glucose (Glutose) 15 gm Q15M PRN PO DECREASED GLUCOSE; Start 01/24/19 at 03:30 Glucose (Glutose) 22.5 gm Q15M PRN PO DECREASED GLUCOSE; Start 01/24/19 at 03:30 Dextrose (D50w Syringe) 25 ml Q15M PRN IV DECREASED GLUCOSE; Start 01/24/19 at 03:30 Dextrose (D50w Syringe) 50 ml Q15M PRN IV DECREASED GLUCOSE; Start 01/24/19 at 03:30 Glucagon (Glucagen) 1 mg Q15M PRN IM DECREASED GLUCOSE; Start 01/24/19 at 03:30 Glucose (Glutose) 15 gm Q15M PRN BUCCAL DECREASED GLUCOSE; Start 01/24/19 at 03:30 Clopidogrel Bisulfate (plaVIX) 75 mg DAILY PO Last administered on 01/26/19at 08:57; Admin Dose 75 MG; Start 01/26/19 at 09:00 LUANNE BHAKTA Jan 26, 2019 12:39
[2019-01-26] MEDS ORDERED: SOD CHLORIDE 0.9% 100 ML ONE (13:10)
[2019-01-26] MEDS ORDERED: IOHEXOL 100 ML ONE (13:10)
[2019-01-26 15:35] VITALS: BP 129/82; PULSE 71; RESP 19
--- NOTE | 2019-01-26 16:32 | CONS ---
Consult Date/Type/Reason Admit Date/Time Jan 20, 2019 at 19:00 Initial Consult Date 01/21/19 Type of Consult Pulmonary Requesting Provider: TAMAR MCCLELLAN MD Date/Time of Note DATE: 01/26/19 TIME: 16:31 Subjective Patient continues to remain stable. CT angiogram negative for pulmonary embolus. Shows old granulomatous disease. Objective Vital Signs Date Temp Pulse Resp B/P (MAP) Pulse Ox O2 O2 Flow FiO2 Time Delivery Rate 01/26/19 98.1 71 19 129/82 95 Room Air 15:35 (98) 01/26/19 21 12:58 01/25/19 2.0 14:25 Intake and Output 01/25/19 01/25/19 01/26/19 1515:00 23:00 07:00 IntakeIntake Total 525 ml 600 ml OutputOutput Total 3 ml BalanceBalance 522 ml 600 ml Exam PHYSICAL EXAMINATION: GENERAL: Well-nourished, well-developed gentleman, awake alert oriented VITAL SIGNS: As above NECK: Supple. No JVD or lymphadenopathy. CARDIAC: S1, S2, no added sounds or murmurs. CHEST: Diminished air entry bilaterally. ABDOMEN: Soft, nontender. No guarding or rebound. EXTREMITIES: No cyanosis, clubbing, or edema. NEUROLOGIC: No focal deficits Vent Setting Ventilator Support Mode: CPAP, PS Fraction of Inspired Oxygen pe: 21 Positive End Expiratory Pressu: 5.0 Results/Medications Result Diagram: 01/26/19 1037 01/26/19 1037 Results 24 hrs Laboratory Tests Test 01/25/19 17:03 01/25/19 20:29 01/26/19 02:17 01/26/19 07:42 Bedside Glucose 209 103 112 139 Test 01/26/19 10:37 01/26/19 11:50 White Blood Count 7.0 Red Blood Count 4.28 L Hemoglobin 12.6 L Hematocrit 36.9 L Mean Corpuscular Volume 86.2 Mean Corpuscular 29.4 Hemoglobin Mean Corpuscular 34.1 Hemoglobin Concent Red Cell Distribution 12.6 Width Platelet Count 289 # Mean Platelet Volume 11.3 H Immature Granulocytes % 0.600 H Neutrophils % 71.7 Lymphocytes % 16.2 Monocytes % 7.0 Eosinophils % 4.1 Basophils % 0.4 Nucleated Red Blood 0.0 Cells % Immature Granulocytes # 0.040 H Neutrophils # 5.0 Lymphocytes # 1.1 Monocytes # 0.5 Eosinophils # 0.3 Basophils # 0.0 Nucleated Red Blood 0.0 Cells # D-Dimer 425.72 D-Dimer Comment Sodium Level 140 Potassium Level 4.4 Chloride Level 103 Carbon Dioxide Level 27 Anion Gap 10 Blood Urea Nitrogen 16 Creatinine 0.71 Est Glomerular Filtrat > 60 Rate mL/min Glucose Level 222 H Calcium Level 9.0 Total Bilirubin 0.6 Direct Bilirubin 0.00 Indirect Bilirubin 0.6 Aspartate Amino 59 H Transf (AST/SGOT) Alanine 41 Aminotransferase (ALT/SG PT) Alkaline Phosphatase 73 Total Protein 6.9 Albumin 3.8 Globulin 3.10 Albumin/Globulin Ratio 1.22 Bedside Glucose 169 Medications Current Medications IV Flush (NS 3 ml) 3 ml PER PROTOCOL IV ; Start 01/20/19 at 19:30 Insulin Glargine (Lantus) 12 units DAILY@2000 SC Last administered on 01/25/19 20:43; Admin Dose 12 UNITS; Start 01/20/19 at 20:00 Aspirin (Aspirin) 81 mg DAILY PO Last administered on 01/26/19 08:57; Admin Dose 81 MG; Start 01/22/19 at 09:00 Acetaminophen (Tylenol Liquid) 650 mg Q6 PRN NGT MILD PAIN(1-3)OR ELEVATED TEMP Last administered on 01/21/19 20:39; Admin Dose 650 MG; Start 01/21/19 at 20:30 Atorvastatin Calcium (Lipitor) 40 mg HS PO Last administered on 01/25/19 20:30; Admin Dose 40 MG; Start 01/22/19 at 21:00 Metoprolol Tartrate (Lopressor) 50 mg BID PO Last administered on 01/26/19 08:57; Admin Dose 50 MG; Start 01/23/19 at 21:00 Albuterol/ Ipratropium (Duoneb) 3 ml Q4H RESP THERAPY HHN Last administered on 01/26/19 12:58; Admin Dose 3 ML; Start 01/23/19 at 21:00 Heparin Sodium (Porcine) (Heparin (5000 Units/1ml)) 5,000 unit Q8 SC Last administered on 01/26/19 14:41; Admin Dose 5,000 UNIT; Start 01/24/19 at 21:00 Diagnostic Test (Pha) (Accu-Chek) 1 ea 02 XX Last administered on 01/26/19at 02:17; Admin Dose 1 EA; Start 01/25/19 at 02:00 Insulin Aspart (Novolog Insulin Pen) NOVOLOG *MODERATE* ALGORITHM WITH MEALS BEDTIME SC Last administered on 01/26/19at 11:52; Admin Dose 2 UNIT; Start 01/24/19 at 08:00 Miscellaneous Information 1 ea NOTE XX ; Start 01/24/19 at 03:30 Glucose (Glutose) 15 gm Q15M PRN PO DECREASED GLUCOSE; Start 01/24/19 at 03:30 Glucose (Glutose) 22.5 gm Q15M PRN PO DECREASED GLUCOSE; Start 01/24/19 at 03:30 Dextrose (D50w Syringe) 25 ml Q15M PRN IV DECREASED GLUCOSE; Start 01/24/19 at 03:30 Dextrose (D50w Syringe) 50 ml Q15M PRN IV DECREASED GLUCOSE; Start 01/24/19 at 03:30 Glucagon (Glucagen) 1 mg Q15M PRN IM DECREASED GLUCOSE; Start 01/24/19 at 03:30 Glucose (Glutose) 15 gm Q15M PRN BUCCAL DECREASED GLUCOSE; Start 01/24/19 at 03:30 Clopidogrel Bisulfate (plaVIX) 75 mg DAILY PO Last administered on 01/26/19at 08:57; Admin Dose 75 MG; Start 01/26/19 at 09:00 Assessment/Plan Hospital Course (Demo Recall) IMPRESSION AND PLAN: 1. Acute encephalopathic episode of unclear etiology. No safely extubated 2. Non-ST elevation myocardial infarction. 3. Respiratory failure secondary to above. 4. Likely prior granulomatous disease. RECOMMENDATIONS: 1. Neuro recommendations resolving encephalopathy 2. Cardiac recommendations appreciated. Continue Plavix 3. Aspiration precautions advance diet as tolerated 4. Continue glycemic management. 5. Deep vein thrombosis and gastrointestinal prophylaxis. DC planning. ARMANDO MARCIAL MD, [facility] Jan 26, 2019 16:32
--- NOTE | 2019-01-26 18:11 | PN ---
Date/Time of Note Date/Time of Note DATE: 01/26/19 TIME: 18:09 Assessment/Plan VTE Prophylaxis Risk score (from Ns)>0 risk: 3 SCD applied (from Ns): Yes Pharmacological prophylaxis: heparin Lines/Catheters IV C[facility]ter Type (from [facility] Assessment/Plan Hospital Course 53 yo male without known PMH who was brought in by EMS for acute encephalopathy that occurred at work. Patient was extremely agitated on arrival and required sedation leading to intubation and mechanical ventilation. It sounds like the patient was in usual state of health prior to acute decompensation at work on day of admission. This suggests perhaps a toxidrome, however drug screen is negative. Perhaps this was seizure activity however it did not respond to ativan in the ED. He is s/p extubation and doing well without complaints Acute encephalopathy - Monitor neurologic status - Appears back to normal - Neuro consulted - MRI without acute findings - Dc abx as no evidence of infection NSTEMI: -Continue aspirin and statin, consultation with Dr Giordano appreciated, CTA with evidence of coronary disease, cath shows mild to moderate coronary disease but stent was not indicated Persistent chest pain CTA of the chest was negative for PE, multiple masses were noted, follow-up with pulmonology recommendations DMII - Seems diabetic by glucose level. Basal/bolus insulin MONIQUE: - Resolved with fluids Transaminitis: - Imaging wnl, hepatitis serologies Lactic acidosis: - Resolved Prophylaxis: Heparin Result Diagram: 01/26/19 1037 01/26/19 1037 Results 24hrs Laboratory Tests Test 01/25/19 20:29 01/26/19 02:17 01/26/19 07:42 01/26/19 10:37 Bedside Glucose 103 112 139 White Blood Count 7.0 Red Blood Count 4.28 L Hemoglobin 12.6 L Hematocrit 36.9 L Mean Corpuscular Volume 86.2 Mean Corpuscular 29.4 Hemoglobin Mean Corpuscular 34.1 Hemoglobin Concent Red Cell Distribution 12.6 Width Platelet Count 289 # Mean Platelet Volume 11.3 H Immature Granulocytes % 0.600 H Neutrophils % 71.7 Lymphocytes % 16.2 Monocytes % 7.0 Eosinophils % 4.1 Basophils % 0.4 Nucleated Red Blood 0.0 Cells % Immature Granulocytes # 0.040 H Neutrophils # 5.0 Lymphocytes # 1.1 Monocytes # 0.5 Eosinophils # 0.3 Basophils # 0.0 Nucleated Red Blood 0.0 Cells # D-Dimer 425.72 D-Dimer Comment Sodium Level 140 Potassium Level 4.4 Chloride Level 103 Carbon Dioxide Level 27 Anion Gap 10 Blood Urea Nitrogen 16 Creatinine 0.71 Est Glomerular Filtrat > 60 Rate mL/min Glucose Level 222 H Calcium Level 9.0 Total Bilirubin 0.6 Direct Bilirubin 0.00 Indirect Bilirubin 0.6 Aspartate Amino 59 H Transf (AST/SGOT) Alanine 41 Aminotransferase (ALT/SG PT) Alkaline Phosphatase 73 Total Protein 6.9 Albumin 3.8 Globulin 3.10 Albumin/Globulin Ratio 1.22 Test 01/26/19 11:50 01/26/19 17:11 Bedside Glucose 169 137 Subjective 24 Hr Interval Summary Cardiovascular: chest pain Exam/Review of Systems Exam Vitals Vital Signs Date Temp Pulse Resp B/P (MAP) Pulse Ox O2 O2 Flow FiO2 Time Delivery Rate 01/26/19 72 15 98 21 17:18 01/26/19 98.1 129/82 Room Air 15:35 (98) 01/25/19 2.0 14:25 Intake and Output 01/25/19 01/25/19 01/26/19 1515:00 23:00 07:00 IntakeIntake Total 525 ml 600 ml OutputOutput Total 3 ml BalanceBalance 522 ml 600 ml Constitutional: alert, oriented Respiratory: clear to auscultation Cardiovascular: regular rate and rhythm Gastrointestinal: soft; No distended Musculoskeletal: nl extremities to inspection Results Results 24hrs Laboratory Tests Test 01/25/19 20:29 01/26/19 02:17 01/26/19 07:42 01/26/19 10:37 Bedside Glucose 103 112 139 White Blood Count 7.0 Red Blood Count 4.28 L Hemoglobin 12.6 L Hematocrit 36.9 L Mean Corpuscular Volume 86.2 Mean Corpuscular 29.4 Hemoglobin Mean Corpuscular 34.1 Hemoglobin Concent Red Cell Distribution 12.6 Width Platelet Count 289 # Mean Platelet Volume 11.3 H Immature Granulocytes % 0.600 H Neutrophils % 71.7 Lymphocytes % 16.2 Monocytes % 7.0 Eosinophils % 4.1 Basophils % 0.4 Nucleated Red Blood 0.0 Cells % Immature Granulocytes # 0.040 H Neutrophils # 5.0 Lymphocytes # 1.1 Monocytes # 0.5 Eosinophils # 0.3 Basophils # 0.0 Nucleated Red Blood 0.0 Cells # D-Dimer 425.72 D-Dimer Comment Sodium Level 140 Potassium Level 4.4 Chloride Level 103 Carbon Dioxide Level 27 Anion Gap 10 Blood Urea Nitrogen 16 Creatinine 0.71 Est Glomerular Filtrat > 60 Rate mL/min Glucose Level 222 H Calcium Level 9.0 Total Bilirubin 0.6 Direct Bilirubin 0.00 Indirect Bilirubin 0.6 Aspartate Amino 59 H Transf (AST/SGOT) Alanine 41 Aminotransferase (ALT/SG PT) Alkaline Phosphatase 73 Total Protein 6.9 Albumin 3.8 Globulin 3.10 Albumin/Globulin Ratio 1.22 Test 01/26/19 11:50 01/26/19 17:11 Bedside Glucose 169 137 Medications Medication Current Medications IV Flush (NS 3 ml) 3 ml PER PROTOCOL IV ; Start 01/20/19 at 19:30 Insulin Glargine (Lantus) 12 units DAILY@2000 SC Last administered on 01/25/19 20:43; Admin Dose 12 UNITS; Start 01/20/19 at 20:00 Aspirin (Aspirin) 81 mg DAILY PO Last administered on 01/26/19 08:57; Admin Dose 81 MG; Start 01/22/19 at 09:00 Acetaminophen (Tylenol Liquid) 650 mg Q6 PRN NGT MILD PAIN(1-3)OR ELEVATED TEMP Last administered on 01/21/19 20:39; Admin Dose 650 MG; Start 01/21/19 at 20:30 Atorvastatin Calcium (Lipitor) 40 mg HS PO Last administered on 01/25/19 20:30; Admin Dose 40 MG; Start 01/22/19 at 21:00 Metoprolol Tartrate (Lopressor) 50 mg BID PO Last administered on 01/26/19 08:57; Admin Dose 50 MG; Start 01/23/19 at 21:00 Albuterol/ Ipratropium (Duoneb) 3 ml Q4H RESP THERAPY HHN Last administered on 01/26/19 16:42; Admin Dose 3 ML; Start 01/23/19 at 21:00 Heparin Sodium (Porcine) (Heparin (5000 Units/1ml)) 5,000 unit Q8 SC Last administered on 01/26/19 14:41; Admin Dose 5,000 UNIT; Start 01/24/19 at 21:00 Diagnostic Test (Pha) (Accu-Chek) 1 ea 02 XX Last administered on 7/3/19at 02:17; Admin Dose 1 EA; Start 01/25/19 at 02:00 Insulin Aspart (Novolog Insulin Pen) NOVOLOG *MODERATE* ALGORITHM WITH MEALS BEDTIME SC Last administered on 01/26/19at 11:52; Admin Dose 2 UNIT; Start 01/24/19 at 08:00 Miscellaneous Information 1 ea NOTE XX ; Start 01/24/19 at 03:30 Glucose (Glutose) 15 gm Q15M PRN PO DECREASED GLUCOSE; Start 01/24/19 at 03:30 Glucose (Glutose) 22.5 gm Q15M PRN PO DECREASED GLUCOSE; Start 01/24/19 at 03:30 Dextrose (D50w Syringe) 25 ml Q15M PRN IV DECREASED GLUCOSE; Start 01/24/19 at 03:30 Dextrose (D50w Syringe) 50 ml Q15M PRN IV DECREASED GLUCOSE; Start 01/24/19 at 03:30 Glucagon (Glucagen) 1 mg Q15M PRN IM DECREASED GLUCOSE; Start 01/24/19 at 03:30 Glucose (Glutose) 15 gm Q15M PRN BUCCAL DECREASED GLUCOSE; Start 01/24/19 at 03:30 Clopidogrel Bisulfate (plaVIX) 75 mg DAILY PO Last administered on 01/26/19at 08:57; Admin Dose 75 MG; Start 01/26/19 at 09:00 MAJO LOPEZ Jan 26, 2019 18:11
[2019-01-26 20:00] VITALS: BP 121/73; PULSE 73; PULSE 76; RESP 18
[2019-01-26] MEDS: INSULIN GLARGINE [LANTus] (100 UNITS/ML) SYG SC SCH (21:53)
[2019-01-26] MEDS: ATORVASTATIN 40 MG TAB PO SCH (21:54)
[2019-01-27] VITALS: BP 124/73; PULSE 71; RESP 18
[2019-01-27] MEDS: ALBUTEROL/IPRATROPIUM (NEB) 3 ML AMP HHN SCH ×4 (01:49→12:50)
[2019-01-27] MEDS: ACCU-CHEK XX SCH (02:00)
[2019-01-27 03:46] VITALS: BP 96/54; PULSE 79; RESP 18
[2019-01-27] MEDS: HEPARIN 5,000 UNIT/1 ML VIAL SC SCH ×2 (06:06→14:00)
[2019-01-27 07:10] VITALS: BP 122/74; PULSE 79; RESP 19
[2019-01-27] MEDS: INSULIN ASPART [NOVOLOG] 3 ML PEN SC SCH ×2 (08:20→12:07)
[2019-01-27] MEDS: CLOPIDOGREL 75 MG TAB PO SCH (08:39)
[2019-01-27] MEDS: ASPIRIN 81 MG TAB PO SCH (08:39)
[2019-01-27] MEDS: METOPROLOL 25 MG TAB PO SCH (08:43)
--- NOTE | 2019-01-27 08:51 | CONS ---
Assessment/Plan Assessment/Plan Hospital Course (Demo Recall) NSTEMI: Trop peak of 11. EKG completely normal and no q waves. Echo with EF 50% and basal inferior wall abnormality vs artifact.Cardiac CTA showed 50-70% LAD which is often overestimated on CT. Cath showed about 40% prox and mid LAD lesions. Small 90% diagonal which could possibly explain the NSTEMI. 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 It is reassuring that he had no precordial EKG changes on admission to explain a healed plaque rupture. No PE on CTA. Old granulomatous disease and emphysema/fibrosis. Delirium: CT head normal x2. 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 Still unclear etiology as no pesticide exposure. Now resolved Acute respiratory failure: intubated on admission for airway protection. Now extubated 01/22 Acute renal failure: now resolved after IVF Transaminitis: resolved -ok for d/c from cardiac perspective with below meds -continue ASA -plavix for medical management of NSTEMI -lipitor 40mg -metoprolol 50 mg BID Consultation Date/Type/Reason Admit Date/Time Jan 20, 2019 at 19:00 Initial Consult Date 01/21/19 Type of Consult Cardiology Requesting Provider: TAMAR MCCLELLAN MD Date/Time of Note DATE: 01/27/19 TIME: 08:49 24 HR Interval Summary Free Text/Dictation No PE on CTA. Old granulomatous disease and emphysema/fibrosis. No complaints. Would like to go home Exam/Review of Systems Vital Signs Vitals Vital Signs Date Temp Pulse Resp B/P (MAP) Pulse Ox O2 O2 Flow FiO2 Time Delivery Rate 01/27/19 98.9 79 19 122/74 98 Room Air 07:10 (90) 01/27/19 21 04:51 01/25/19 2.0 14:25 Intake and Output 01/26/19 01/26/19 01/27/19 1515:00 23:00 07:00 IntakeIntake Total 1100 ml BalanceBalance 1100 ml Exam Constitutional: alert, oriented Psych: no complaints, nl mood/affect Head: normocephalic, atraumatic Neck: No jvd Respiratory: diminished breath sounds; No clear to auscultation Cardiovascular: regular rate and rhythm; No edema, No systolic murmur Gastrointestinal: soft, non-tender; No distended Neurological: nl mental status, nl speech Labs Result Diagram: 01/27/19 0524 01/27/19 0524 Results 24hrs Laboratory Tests Test 01/26/19 10:37 01/26/19 11:50 01/26/19 17:11 01/26/19 21:41 White Blood Count 7.0 Red Blood Count 4.28 L Hemoglobin 12.6 L Hematocrit 36.9 L Mean Corpuscular Volume 86.2 Mean Corpuscular 29.4 Hemoglobin Mean Corpuscular 34.1 Hemoglobin Concent Red Cell Distribution 12.6 Width Platelet Count 289 # Mean Platelet Volume 11.3 H Immature Granulocytes % 0.600 H Neutrophils % 71.7 Lymphocytes % 16.2 Monocytes % 7.0 Eosinophils % 4.1 Basophils % 0.4 Nucleated Red Blood 0.0 Cells % Immature Granulocytes # 0.040 H Neutrophils # 5.0 Lymphocytes # 1.1 Monocytes # 0.5 Eosinophils # 0.3 Basophils # 0.0 Nucleated Red Blood 0.0 Cells # D-Dimer 425.72 D-Dimer Comment Sodium Level 140 Potassium Level 4.4 Chloride Level 103 Carbon Dioxide Level 27 Anion Gap 10 Blood Urea Nitrogen 16 Creatinine 0.71 Est Glomerular Filtrat > 60 Rate mL/min Glucose Level 222 H Calcium Level 9.0 Total Bilirubin 0.6 Direct Bilirubin 0.00 Indirect Bilirubin 0.6 Aspartate Amino 59 H Transf (AST/SGOT) Alanine 41 Aminotransferase (ALT/SG PT) Alkaline Phosphatase 73 Total Protein 6.9 Albumin 3.8 Globulin 3.10 Albumin/Globulin Ratio 1.22 Bedside Glucose 169 137 222 H Test 01/27/19 01:32 01/27/19 05:24 01/27/19 07:41 Bedside Glucose 145 162 White Blood Count 7.5 Red Blood Count 4.82 Hemoglobin 14.1 Hematocrit 41.9 L Mean Corpuscular Volume 86.9 Mean Corpuscular 29.3 Hemoglobin Mean Corpuscular 33.7 Hemoglobin Concent Red Cell Distribution 12.5 Width Platelet Count 327 Mean Platelet Volume 10.8 H Immature Granulocytes % 0.700 H Neutrophils % 63.4 Lymphocytes % 22.9 Monocytes % 7.5 Eosinophils % 4.8 Basophils % 0.7 Nucleated Red Blood 0.0 Cells % Immature Granulocytes # 0.050 H Neutrophils # 4.7 Lymphocytes # 1.7 Monocytes # 0.6 Eosinophils # 0.4 Basophils # 0.1 Nucleated Red Blood 0.0 Cells # Sodium Level 143 Potassium Level 4.4 Chloride Level 102 Carbon Dioxide Level 29 Anion Gap 12 Blood Urea Nitrogen 16 Creatinine 0.84 Est Glomerular Filtrat > 60 Rate mL/min Glucose Level 155 Calcium Level 9.6 Magnesium Level 1.7 Medications Medications Current Medications IV Flush (NS 3 ml) 3 ml PER PROTOCOL IV ; Start 01/20/19 at 19:30 Insulin Glargine (Lantus) 12 units DAILY@2000 SC Last administered on 01/26/19 21:53; Admin Dose 12 UNITS; Start 01/20/19 at 20:00 Aspirin (Aspirin) 81 mg DAILY PO Last administered on 01/27/19 08:39; Admin Dose 81 MG; Start 01/22/19 at 09:00 Acetaminophen (Tylenol Liquid) 650 mg Q6 PRN NGT MILD PAIN(1-3)OR ELEVATED TEMP Last administered on 01/21/19 20:39; Admin Dose 650 MG; Start 01/21/19 at 20:30 Atorvastatin Calcium (Lipitor) 40 mg HS PO Last administered on 01/26/19 21:54; Admin Dose 40 MG; Start 01/22/19 at 21:00 Metoprolol Tartrate (Lopressor) 50 mg BID PO Last administered on 01/27/19 08:43; Admin Dose 50 MG; Start 01/23/19 at 21:00 Albuterol/ Ipratropium (Duoneb) 3 ml Q4H RESP THERAPY HHN Last administered on 01/27/19 04:51; Admin Dose 3 ML; Start 01/23/19 at 21:00 Heparin Sodium (Porcine) (Heparin (5000 Units/1ml)) 5,000 unit Q8 SC Last administered on 01/27/19 06:06; Admin Dose 5,000 UNIT; Start 01/24/19 at 21:00 Diagnostic Test (Pha) (Accu-Chek) 1 ea 02 XX Last administered on 01/26/19 02:17; Admin Dose 1 EA; Start 01/25/19 at 02:00 Insulin Aspart (Novolog Insulin Pen) NOVOLOG *MODERATE* ALGORITHM WITH MEALS BEDTIME SC Last administered on 01/27/19 08:20; Admin Dose 2 UNIT; Start 01/24/19 at 08:00 Miscellaneous Information 1 ea NOTE XX ; Start 01/24/19 at 03:30 Glucose (Glutose) 15 gm Q15M PRN PO DECREASED GLUCOSE; Start 01/24/19 at 03:30 Glucose (Glutose) 22.5 gm Q15M PRN PO DECREASED GLUCOSE; Start 01/24/19 at 03:30 Dextrose (D50w Syringe) 25 ml Q15M PRN IV DECREASED GLUCOSE; Start 01/24/19 at 03:30 Dextrose (D50w Syringe) 50 ml Q15M PRN IV DECREASED GLUCOSE; Start 01/24/19 at 03:30 Glucagon (Glucagen) 1 mg Q15M PRN IM DECREASED GLUCOSE; Start 01/24/19 at 03:30 Glucose (Glutose) 15 gm Q15M PRN BUCCAL DECREASED GLUCOSE; Start 01/24/19 at 03:30 Clopidogrel Bisulfate (plaVIX) 75 mg DAILY PO Last administered on 01/27/19at 08:39; Admin Dose 75 MG; Start 01/26/19 at 09:00 LUANNE BHAKTA Jan 27, 2019 08:51
[2019-01-27 11:35] VITALS: BP 117/73; PULSE 69; RESP 18
[2019-01-27] MEDS ORDERED: METO-448 PO (14:07)
[2019-01-27] MEDS ORDERED: ASPI-831 PO (14:07)
[2019-01-27] MEDS ORDERED: CLOP75TA28 PO (14:07)
[2019-01-27] MEDS ORDERED: ATOR40TA68 PO (14:07)
--- NOTE | 2019-01-27 14:08 | PDOCDIS ---
Discharge Instructions CONDITION [id number] Patient Condition: [id number] Good HOME CARE INSTRUCTIONS: [id number] Diet Instructions: [id number] Reduced Calorie ACTIVITY: [id number] Activity Restrictions: [id number] No Restrictions FOLLOW UP/APPOINTMENTS Follow-up Plan FOLLOW UP WITH A PCP AND A TRUER [employer] MAJO LOPEZ Jan 27, 2019 14:08
--- NOTE | 2019-01-27 14:22 | DS ---
Date/Time of Note Date/Time of Note DATE: 01/27/19 TIME: 14:12 Discharge Summary Admission/Discharge Info Admit Date/Time Jan 20, 2019 at 19:00 Discharge Date/Time January 27, 2019 Discharge Diagnosis Acute encephalopathy -Etiology unclear but has resolved, may have been delirium - Neuro consultation appreciated - MRI without acute findings -Toxicology and HIV are negative NSTEMI: -Preop consultation appreciated, CTA with evidence of coronary disease and cath showed mild to moderate coronary disease but stent was not indicated -DC with aspirin, Plavix, statin and beta-anastasia per cardiology Persistent chest pain-now resolved CTA of the chest was negative for PE, chronic lung changes were noted on CT chest and was reviewed with pulmonology, patient needs outpatient follow-up with pulmonary DMII -Continue home meds MONIQUE: - Resolved with fluids Transaminitis: - Imaging wnl, ultrasound of liver shows fatty liver Lactic acidosis: - Resolved Patient Condition: Good Hospital Course Patient is a 53 yo male without known PMH who was brought in by EMS for acute encephalopathy that occurred at work. Patient was extremely agitated on arrival and required sedation leading to intubation and mechanical ventilation. It sounds like the patient was in usual state of health prior to acute decompensation at work on day of admission. This suggests perhaps a toxidrome, however drug screen is negative. Perhaps this was seizure activity however it did not respond to ativan in the ED. He is s/p extubation, patient was seen by neurology and MRI showed no acute findings. Patients mentation did stabilize and returned to baseline. Patient did have troponin elevation and CTA of the coronaries did show evidence of occlusions, patient had a cardiac cath that showed mild to moderate disease but stent was not indicated and recognition was for medical management. There is concern for PE as patient had persistent chest and back discomfort, ultrasound of lower extremities and CT of the chest was negative for DVT and/or pulmonary embolism. CT of the chest did show chronic lung changes with multiple soft tissue nodules throughout the bilateral lungs, patient was noted to have fibrosis, scarring and emphysematous changes of the right lower lobe. There are multiple calcified granulomas throughout the bilateral lungs. CT chest was reviewed with pulmonology and findings are likely to be chronic in nature and patient requires outpatient pulmonology follow-up. Patient was told about the need to follow-up with pulmonology and PCP. Patient was stable for DC with no further complaints, on day of discharge patient's vitals, labs and physical exam are stable. Home Meds Active Scripts Aspirin (Aspirin) 81 Mg Chew, 81 MG PO DAILY, #60 TAB Prov:MAJO LOPEZ 01/27/19 Metoprolol Tartrate* (Lopressor*) 25 Mg Tab, 50 MG PO BID, #60 TAB Prov:MAJO LOPEZ 01/27/19 Atorvastatin* (Atorvastatin*) 40 Mg Tablet, 40 MG PO HS, #60 TAB Prov:MAJO LOPEZ 01/27/19 Clopidogrel Bisulfate (Clopidogrel) 75 Mg Tablet, 75 MG PO DAILY, #60 TAB Prov:MAJO LOPEZ 01/27/19 Reported Medications [diclofenaco] No Conflict Check 01/21/19 [bromuro] No Conflict Check 01/21/19 [biojara] No Conflict Check 01/21/19 [nediclon] No Conflict Check 01/21/19 [paracetamol] No Conflict Check 01/21/19 [dolprofen] No Conflict Check 01/21/19 [derman] No Conflict Check 01/21/19 [treda] No Conflict Check 01/21/19 [miconazol] No Conflict Check 01/21/19 [assal] No Conflict Check 01/21/19 [loratadina] No Conflict Check 01/21/19 [ciprofloxacino] No Conflict Check 01/21/19 [glibenclamida] No Conflict Check 01/21/19 [enalapril] No Conflict Check 01/21/19 [omeprazol] No Conflict Check 01/21/19 [metformina] No Conflict Check 01/21/19 Follow-up Plan FOLLOW UP WITH A PCP AND A HEM INSPECTOR Primary Care Provider Care Physician No Primary Time spent on discharge: > 30 minutes MAJO LOPEZ Jan 27, 2019 14:22
--- NOTE | 2019-01-27 14:26 | CONS ---
Consult Date/Type/Reason Admit Date/Time Jan 20, 2019 at 19:00 Initial Consult Date 01/21/19 Type of Consultation: Pulm Requesting Provider: TAMAR MCCLELLAN MD Date/Time of Note DATE: 01/27/19 TIME: 14:23 Subjective No events overnight. Objective Vitals Vital Signs Date Temp Pulse Resp B/P (MAP) Pulse Ox O2 O2 Flow FiO2 Time Delivery Rate 01/27/19 98.0 69 18 117/73 95 Room Air 11:35 (88) 01/27/19 21 09:45 01/25/19 2.0 14:25 Intake and Output 01/26/19 01/26/19 01/27/19 1515:00 23:00 07:00 IntakeIntake Total 1100 ml BalanceBalance 1100 ml Exam HEENT: Neck supple; no JVD; no LAD CVS: RRR, S1 and S2 CHEST: Clear ABD: Soft, NT, + BS EXT: No c/c/e Results/Medications Result Diagram: 01/27/1952301/27/19 0524 Results 24 hrs Laboratory Tests Test 01/26/19 17:11 01/26/19 21:41 01/27/19 01:32 01/27/19 05:24 Bedside Glucose 137 222 H 145 White Blood Count 7.5 Red Blood Count 4.82 Hemoglobin 14.1 Hematocrit 41.9 L Mean Corpuscular Volume 86.9 Mean Corpuscular 29.3 Hemoglobin Mean Corpuscular 33.7 Hemoglobin Concent Red Cell Distribution 12.5 Width Platelet Count 327 Mean Platelet Volume 10.8 H Immature Granulocytes % 0.700 H Neutrophils % 63.4 Lymphocytes % 22.9 Monocytes % 7.5 Eosinophils % 4.8 Basophils % 0.7 Nucleated Red Blood 0.0 Cells % Immature Granulocytes # 0.050 H Neutrophils # 4.7 Lymphocytes # 1.7 Monocytes # 0.6 Eosinophils # 0.4 Basophils # 0.1 Nucleated Red Blood 0.0 Cells # Sodium Level 143 Potassium Level 4.4 Chloride Level 102 Carbon Dioxide Level 29 Anion Gap 12 Blood Urea Nitrogen 16 Creatinine 0.84 Est Glomerular Filtrat > 60 Rate mL/min Glucose Level 155 Calcium Level 9.6 Magnesium Level 1.7 Test 01/27/19 07:41 01/27/19 11:55 Bedside Glucose 162 184 Home Meds Active Scripts Aspirin (Aspirin) 81 Mg Chew, 81 MG PO DAILY, #60 TAB Prov:MAJO LOPEZ 01/27/19 Metoprolol Tartrate* (Lopressor*) 25 Mg Tab, 50 MG PO BID, #60 TAB Prov:MAJO LOPEZ 01/27/19 Atorvastatin* (Atorvastatin*) 40 Mg Tablet, 40 MG PO HS, #60 TAB Prov:MAJO LOPEZ 01/27/19 Clopidogrel Bisulfate (Clopidogrel) 75 Mg Tablet, 75 MG PO DAILY, #60 TAB Prov:MAJO LOPEZ 01/27/19 Reported Medications [diclofenaco] No Conflict Check 01/21/19 [bromuro] No Conflict Check 01/21/19 [biojara] No Conflict Check 01/21/19 [nediclon] No Conflict Check 01/21/19 [paracetamol] No Conflict Check 01/21/19 [dolprofen] No Conflict Check 01/21/19 [derman] No Conflict Check 01/21/19 [treda] No Conflict Check 01/21/19 [miconazol] No Conflict Check 01/21/19 [assal] No Conflict Check 01/21/19 [loratadina] No Conflict Check 01/21/19 [ciprofloxacino] No Conflict Check 01/21/19 [glibenclamida] No Conflict Check 01/21/19 [enalapril] No Conflict Check 01/21/19 [omeprazol] No Conflict Check 01/21/19 [metformina] No Conflict Check 01/21/19 Medications Current Medications IV Flush (NS 3 ml) 3 ml PER PROTOCOL IV ; Start 01/20/19 at 19:30 Insulin Glargine (Lantus) 12 units DAILY@2000 SC Last administered on 01/26/19at 21:53; Admin Dose 12 UNITS; Start 01/20/19 at 20:00 Aspirin (Aspirin) 81 mg DAILY PO Last administered on 01/27/19at 08:39; Admin Dose 81 MG; Start 01/22/19 at 09:00 Acetaminophen (Tylenol Liquid) 650 mg Q6 PRN NGT MILD PAIN(1-3)OR ELEVATED TEMP Last administered on 01/21/19at 20:39; Admin Dose 650 MG; Start 01/21/19 at 20:30 Atorvastatin Calcium (Lipitor) 40 mg HS PO Last administered on 01/26/19 21:54; Admin Dose 40 MG; Start 01/22/19 at 21:00 Metoprolol Tartrate (Lopressor) 50 mg BID PO Last administered on 01/27/19 08:43; Admin Dose 50 MG; Start 01/23/19 at 21:00 Albuterol/ Ipratropium (Duoneb) 3 ml Q4H RESP THERAPY HHN Last administered on 01/27/19 09:45; Admin Dose 3 ML; Start 01/23/19 at 21:00 Heparin Sodium (Porcine) (Heparin (5000 Units/1ml)) 5,000 unit Q8 SC Last administered on 01/27/19 06:06; Admin Dose 5,000 UNIT; Start 01/24/19 at 21:00 Diagnostic Test (Pha) (Accu-Chek) 1 ea 02 XX Last administered on 01/26/19at 02:17; Admin Dose 1 EA; Start 01/25/19 at 02:00 Insulin Aspart (Novolog Insulin Pen) NOVOLOG *MODERATE* ALGORITHM WITH MEALS BEDTIME SC Last administered on 01/27/19at 12:07; Admin Dose 4 UNIT; Start 01/24/19 at 08:00 Miscellaneous Information 1 ea NOTE XX ; Start 01/24/19 at 03:30 Glucose (Glutose) 15 gm Q15M PRN PO DECREASED GLUCOSE; Start 01/24/19 at 03:30 Glucose (Glutose) 22.5 gm Q15M PRN PO DECREASED GLUCOSE; Start 01/24/19 at 03:30 Dextrose (D50w Syringe) 25 ml Q15M PRN IV DECREASED GLUCOSE; Start 01/24/19 at 03:30 Dextrose (D50w Syringe) 50 ml Q15M PRN IV DECREASED GLUCOSE; Start 01/24/19 at 03:30 Glucagon (Glucagen) 1 mg Q15M PRN IM DECREASED GLUCOSE; Start 01/24/19 at 03:30 Glucose (Glutose) 15 gm Q15M PRN BUCCAL DECREASED GLUCOSE; Start 01/24/19 at 03:30 Clopidogrel Bisulfate (plaVIX) 75 mg DAILY PO Last administered on 01/27/19 08:39; Admin Dose 75 MG; Start 01/26/19 at 09:00 Assessment/Plan Assessment/Plan (Daily) IMP: 1. Acute encephalopathic episode of unclear etiology. No safely extubated 2. Non-ST elevation myocardial infarction. 3. Respiratory failure secondary to above. 4. Likely prior granulomatous disease vs. advanced sarcoid--though the constellation of findings most c/w old TB RECS: 1. D/C okay from pulm standpoint LIBRADO CABRAL MD Jan 27, 2019 14:25
== END 2019-01-27 15:50 | disposition home or self-care (01) | DRG 208 ==
LOC: E/R 16:11 → SUATTDRO 18:51 → ICU 19:00 → 6WM 01-23 15:23
PROVIDERS: ADMIT Internal Medicine; ATTEND Internal Medicine
PROC: 0BH17EZ Insertion of Endotracheal Airway into Trachea, Via Natural or Artificial Opening (ICD-10-PCS; principal; 2019-01-20)
PROC: 5A1945Z Respiratory Ventilation, 24-96 Consecutive Hours (ICD-10-PCS; 2019-01-20)
PROC: 4A023N7 Measurement of Cardiac Sampling and Pressure, Left Heart, Percutaneous Approach (ICD-10-PCS; 2019-01-25)
PROC: B215YZZ Fluoroscopy of Left Heart using Other Contrast (ICD-10-PCS; 2019-01-25)
DX: J96.00 Acute respiratory failure, unspecified whether with hypoxia or hypercapnia (principal); I21.4 Non-ST elevation (NSTEMI) myocardial infarction; G93.40 Encephalopathy, unspecified; N17.9 Acute kidney failure, unspecified; E87.2 Acidosis; E11.9 Type 2 diabetes mellitus without complications; I25.10 Atherosclerotic heart disease of native coronary artery without angina pectoris; Z79.4 Long term (current) use of insulin; Z79.82 Long term (current) use of aspirin
CPT/HCPCS: 31500; 36415; 36600; 70140; 70450; 70551; 71045; 71275; 72125; 72170; 75574; 76705; 80048; 80053; 80076; 80202; 80307; 81001; 82140; 82550; 82553; 82803; 82962; 83036; 83605; 83735; 84100; 84436; 84479; 84484; 85025; 85378; 85610; 85730; 86703; 87081; 87086; 92610; 93005; 93306; 93458; 93970; 94002; 94003; 94640; 94664; 94770; 96365; 96367; 96375; C1887; J0133; J0692; J1644; J1815; J2060; J2250; J2543; J3010; J3370; J3411; J3475; J7030; J7050; Q9967